=== PATIENT | female | born 1930 | race Caucasian/White ===

== ENCOUNTER 2017-02-21 08:04 | Inpatient (IN) ==
[2017-02-21] MEDS ORDERED: PROTONIX IV ONE (09:37)
[2017-02-21] MEDS ORDERED: NS 500 ML IV ONE (09:37)
[2017-02-21] MEDS ORDERED: SODIUM CHLORIDE 0.9% INJ ONE ×2 (09:37→09:38)
[2017-02-21] MEDS ORDERED: PHENERGAN IV ONE (09:38)
[2017-02-21] MEDS ORDERED: REGLAN IV ONE (09:38)
[2017-02-21 10:16] LABS: ALBUMIN 2.4 g/dL (3.5-5.0); CALCIUM 8.8 mg/dL (8.8-10.2); POTASSIUM 2.7 mmol/L (3.5-5.1); TOTAL BILIRUBIN 0.69 mg/dL (0.20-1.00); TOTAL PROTEIN 6.9 g/dL (6.3-8.3)
[2017-02-21 10:23] LABS: EOS# 0.01 X1000 (0.0-0.7); HEMATOCRIT 33.2 % (37.0-47.0); HEMOGLOBIN 10.7 g/dL (12.0-16.0); LYMPH# 0.84 X1000 (1.2-3.4); LYMPH% 2.6 % (20.5-51.1); MANUAL DIFF NEEDED? YES; MCH 24.9 PG (27-31); MCHC 32.2 g/dL (33-37); MCV 77.4 FL (81-99); MONO# 0.93 X1000 (0.11-0.59); MONO% 2.9 % (1.7-9.3); MPV 9.2 FL (7.4-10.4); NEUT% 94.5 % (42.2-75.2); PLT 384 X1000 (130-400); RBC 4.29 XMIL (4.2-5.4)
[2017-02-21 10:55] LABS: BANDS 17 % (0-1); LYMPHS 3 % (21-51); MONO 1 % (1-9)
[2017-02-21] MEDS ORDERED: KLOR-CON PO ONE (11:01)
[2017-02-21 11:02] LABS: HYPOCHROM 1+
--- NOTE | 2017-02-21 11:27 | Diag Imaging Result Doc PS360 ---
CT ABD/PELVIS W/ IV CONT ONLY - 02/21/2017 INDICATION: abd. pain, n, v, d TECHNIQUE: A CT dose reduction protocol was used. COMPARISON: None FINDINGS: There is cardiomegaly, pulmonary vascular congestion, and trace pleural effusions. No substantial infiltrates in the lung bases. There is trace ascites. Tiny nonobstructing 3 mm stone in the left kidney upper pole. There are some small renal cysts. The liver is atrophic. Spleen size is somewhat enlarged. The pancreas is atrophic. Adrenals and gallbladder are grossly normal. There is nonspecific body wall edema. There is a small simple cystic collection in the left pelvic sidewall measuring about 3.8 cm. There are numerous diverticula of the sigmoid colon. No definite bowel inflammation. No obstruction or free air. There is a right prosthesis. No acute bony process. IMPRESSION: 1. Cardiomegaly, pulmonary vascular congestion, trace pleural effusions. 2. Atrophic liver. Splenomegaly. Suggestive of cirrhosis. 3. Anasarca and trace ascites. 4. Small indeterminate cystic fluid collection at the left pelvic sidewall. This could represent a lymphocele or small diverticular abscess. However this does not appear definitely inflamed. Electronically signed by Fabian Cruz 02/21/2017 11:24 AM
[2017-02-21] MEDS ORDERED: POTASSIUM CHLORIDE 20% LIQUID PO ONE (12:00)
[2017-02-21 14:15] LABS: URINE CULTURE NEEDED? NO; URINE SOURCE CATH
[2017-02-21 14:23] LABS: BILIRUBIN URINE NEGATIVE (NEGATIVE); BLOOD URINE MODERATE (NEGATIVE); COLOR YELLOW; GLUCOSE URINE TRACE mg/dL (NEGATIVE); LEUKOCYTES URINE NEGATIVE (NEGATIVE); NITRITE URINE NEGATIVE (NEGATIVE); PH URINE 6.5; PROTEIN URINE >600 mg/dL (NEGATIVE); TURBIDITY URINE HAZY (CLEAR); UROBILINOGEN URINE NORMAL (NORMAL)
[2017-02-21 14:25] LABS: URINE MICRO REVIEW NEEDED? YES
[2017-02-21 14:27] LABS: UR EPITHELIAL CELLS >10 /HPF (<10); URINE BACTERIA NEGATIVE /HPF; URINE RBC 20-40 /HPF (<10); URINE WBC <10 /HPF (<10)
[2017-02-21] MEDS ORDERED: NS 1,000 ML IV SCH ×2 (14:42→15:26)
[2017-02-21 14:43] LABS: URINE CASTS WAXY PRESENT
[2017-02-21] MEDS: FLAGYL 500 MG/NS 500 MG/100 ML IVPB IV SCH ×2 (15:16→21:26)
[2017-02-21] MEDS: LEVAQUIN 750 MG/D5W 750 MG/150 ML IVPB IV SCH (16:30)
--- NOTE | 2017-02-21 18:40 | HISTORY AND PHYSICAL ---
PRIMARY CARE PHYSICIAN: Dr. Zhou Mckeon. CHIEF COMPLAINT: Diarrhea. HISTORY OF PRESENT ILLNESS: Ms. Pineda is an 86-year-old female with a past medical history of hypertension, diverticulitis, hypothyroidism status post goiter and partial thyroidectomy and iron deficiency anemia, who presents to the emergency room with worsening diarrhea, nausea, and vomiting. She reports that on an outpatient basis she has seen Dr. Mckeon within the last 3 or 4 months because of an increase with her stool as far as frequency and concern over this. After that she did received 2 rounds of antibiotics per the family for what they believed to be a colitis or diverticulitis. She was treated with Levaquin and another antibiotic that they are not sure of the name of and finished those about 6 weeks ago. She does also take MiraLAX nightly, although her primary care has told her she could take this every other day if she has had loose stool, but she continues to be pretty persistent about taking that nightly. Last night she began having vomiting and has vomited about 4 times since onset. She denies any blood in her emesis or stool. Denies any fever or chills, although her family member states she did feel warm last night but did not check her temperature. Her last colonoscopy and EGD have been within the last 5 years. The only abnormality did show diverticulitis and diverticulosis. The patient was found on arrival to have a 31,000 white count, as well as an abnormal CT of her abdomen and pelvis that showed a possible diverticular abscess and continues with very loose stool in the emergency room. She will be admitted for further evaluation and treatment. PAST MEDICAL HISTORY: 1. 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 2. Hypertension. 3. Diverticulitis. 4. Hypothyroidism status post goiter removal. 5. Iron deficiency anemia. PAST SURGICAL HISTORY: 1. Cataract removal. 2. Complete hysterectomy. 3. Right hip replacement. 4. Skin cancer to her nose, removed. 5. Goiter removal, partial thyroidectomy. SOCIAL HISTORY: Patient is a former smoker but this is been over 60 years ago. However, she has continued to dip tobacco daily over the last 60 years. She denies any alcohol or drug use. She lives with her daughter. FAMILY HISTORY: Positive for coronary artery disease with her mother, dad, and brothers. Positive for esophageal cancer with her father. ALLERGIES: Aspirin and penicillin. MEDICATIONS: Pending reconciliation. LABORATORIES AND DIAGNOSTICS: CBC: White count 31.79, hemoglobin and hematocrit are 10.7 and 33.2, platelets 384,000. BMP: Sodium 138, potassium 2.7, chloride 97, CO2 29, BUN 13, creatinine 1.2, glucose 135, AST 59, ALT 21, alkaline phosphatase 111. Abdomen and pelvis CT shows cardiomegaly, vascular congestion, trace pleural effusions, atrophic liver and splenomegaly suggestive of cirrhosis, anasarca, and trace ascites, and small indeterminate cystic fluid collection at the left pelvic sidewall that they believed could represent a lymphocele or small diverticular abscess. Pending stool cultures and urinalysis. REVIEW OF SYSTEMS: Ten point review of systems negative other than previously stated in HPI. PHYSICAL EXAMINATION: VITAL SIGNS: Temperature 99 degrees, respirations 16, blood pressure 134/69, O2 saturation 98% on room air. HEENT: Normocephalic, atraumatic. Mucous membranes slightly moist. NECK: Supple. No JVD. CHEST: Bilateral breath sounds clear. Respirations unlabored. No accessory muscle use noted. CARDIOVASCULAR: Normal S1, S2. ABDOMEN: Abdomen is soft. Slightly distended. Positive bowel sounds. Diffuse moderate abdominal tenderness. EXTREMITIES: With 1+ edema noted. NEUROLOGIC: The patient is alert and oriented x4. No neurological deficits noted. No focal findings. ASSESSMENT AND PLAN: 1. Abnormal abdomen CT, possible diverticulitis versus diverticular abscess. Will start Levaquin and Flagyl. Due to the risk related to this and her elevated white count. We will also consult surgery for any other recommendations. 2. Diarrhea. We will obtain stool studies and may need to have GI evaluate the patient as well due to her elevated white count and risk for colitis especially with her recent antibiotic use. 3. Leukocytosis. We will continue to follow and treat with IV antibiotics. Feel this is likely secondary to her colitis or diverticulitis. 4. Iron deficiency anemia. We will check an anemia panel. She does have a history of iron deficiency. Need to be sure this is not caused from anything else given her other abnormalities on her complete blood count. 5. Hypokalemia. Has been supplemented in the ER. We will continue to follow. 6. Hypothyroidism. Will check a TSH especially given her diarrhea. Continue to follow and continue with her levothyroxine. Further orders pending physician evaluation. Dictated by RD Muñoz for Edwin Muniz MD cc: RD Muñoz MD
--- NOTE | 2017-02-21 21:24 | CONSULTATION ---
DATE OF CONSULTATION: 02/21/2017 REFERRING PHYSICIAN: Edwin Muniz MD PRIMARY CARE DOCTOR: Zhou Mckeon MD REASON FOR CONSULTATION: Diverticulitis and questionable diverticula abscess and diarrhea. HISTORY OF PRESENT ILLNESS: Ms. Pineda is an 86-year-old female who was admitted through the ER today for abdominal pain localized to the left lower quadrant, right lower quadrant starting about 3 days. According to the patient, the pain got worse over the last 24 hours and she also a has a prior history of diverticulitis. The patient has a chronic history of constipation and takes MiraLAX every day. Her last colonoscopy was 4 years ago [address] Dr. Vergara. Her last admission with diverticulitis was many years ago. According to the patient since the onset of the pain, she has been having diarrhea and she describes liquid stools brown in color with 1 episode of blood in the stools. She also complains of nausea which started last night and had thrown up once last night. She denies noticing blood in the vomitus. She had imaging and a CT scan done in the hospital on admission and it showed evidence of: 1. Cardiomegaly. 2. Pulmonary venous congestion. 3. Trace pleural effusions. 4. Atrophic liver. 5. Splenomegaly. 6. Suggestion of cirrhosis. 7. Anasarca and trace ascites. 8. Small indeterminate cystic fluid collection at the left pelvic sidewall measuring 3.8 cm. This could represent a lymphocele or a small diverticular abscess. 9. She has been started on IV Levaquin and Flagyl. She is currently receiving her 1st dose of Flagyl. She appears to be dehydrated and has not eaten much in the last 24 hours. PAST MEDICAL HISTORY: 1. Diverticulitis. 2. Hypothyroidism. 3. Hypertension. 4. Constipation. PAST SURGICAL HISTORY: 1. Hysterectomy. 2. Cataracts. 3. Thyroidectomy. 4. Colonoscopy 4 years ago. FAMILY HISTORY: Noncontributory. SOCIAL HISTORY: She lives with family. Denies tobacco, alcohol, or illicit drugs. ALLERGIES: Aspirin and penicillin. MEDICATIONS AT HOME: 1. Lexapro 20 mg p.o. daily. 2. Prilosec 20 mg daily. 3. Phenergan 20 mg p.o. q.6 hours. 4. Etodolac ER 400 mg p.o. daily. 5. Lasix 40 mg p.o. daily. 6. Nabumetone 5 mg p.o. daily. 7. Ferrous sulfate 325 mg p.o. t.i.d. 8. Levothyroxine 88 mcg p.o. daily. MEDICATIONS IN HOSPITAL: 1. Lovenox. 2. Flagyl IV 500 mg q.6 hours. 3. Levaquin 750 mg to IV every 24 hours. 4. Levothyroxine 88 mcg p.o. before meals. 5. IV normal saline 100 mL/hour x1 L and then go down to 50 mL. 6. Zofran 4 mg IV every 4 hours. 7. Protonix 40 mg IV q.12 hours. She is currently nothing per oral. REVIEW OF SYSTEMS: She denies any current fevers, rigors, or chills. At home she did feel some chills, but no documented fever. In the ER, she had low-grade temperature 99.6 degrees. She denies any current nausea, but at home she had nausea and 1 episode of vomiting. She complains of abdominal pain in the left lower quadrant and right lower quadrant and diarrhea. She denies any new neurological symptoms. She does have chronic arthritis. She denies noticing blood in the stools. PHYSICAL EXAMINATION: Vital signs: Temperature 99.6 degrees, pulse rate of 99 , respiratory rate 16, blood pressure 134/69, saturating 98% on room air. Body weight 150 pounds. BMI of 24.2 kg/m2. General: Moderately built, moderately nourished, lying in bed, in no acute distress. HEENT: Pale conjunctivae. No icterus. Pupils equal, react to light. Neck: Supple. Chest: Decreased breath sounds. Cardiac: Tachycardic. Abdomen: Discomfort in the right lower quadrant, left lower quadrant. Bowel sounds are present. No guarding or rebound. Extremities: No cyanosis, clubbing, and edema. Neurologic: She is alert, awake, and answers all questions. LABORATORY: Hemoglobin and hematocrit is 10.7, 33.2. White count 31.79, platelet count of 384,000, MCV of 77.4. Sodium 130, potassium 2.7, chloride 97, bicarb 29, anion gap of 12, BUN of 13, creatinine 1.2, glucose of 135, calcium 8.8, AST 59, ALT 21, alkaline phosphatase 111, total protein 6.9, albumin of 2.4, total bilirubin is 0.69. Lipase of 7. Urinalysis showing positive protein, moderate blood, 20-40 white cells. IMAGING: CT scan as described above in HPI. IMPRESSION: 1. Leukocytosis, left lower quadrant pain and questionable of left-sided diverticulitis with 3.8 cm collection ? abscess. 2. Microcytic anemia. 3. Elevated liver enzymes and imaging suspicious for splenomegaly and atrophic liver suggesting cirrhosis of unclear etiology. 4. Dehydration. 5. Previous history of constipation, but reported diarrhea since onset of abdominal pain. RECOMMENDATIONS: 1. We will keep her nothing per oral for now. We will keep her on IV fluids, IV proton pump inhibitor, IV antibiotics. We will hold off on nonsteroidal antiinflammatory drugs. We will obtain a surgical consult. Patient most likely will feel better with IV antibiotics. Hopefully her diverticular abscess will resolve with IV antibiotics. 2. Her liver cirrhosis workup we will initiate once we can control the acute symptoms. 3. We will also check ammonia level. We will avoid any hepatotoxic drugs as much as possible. Once her abdominal pain is relieved, we can start her on a clear liquid diet. 4. The above plan was discussed with the patient and the nurse and all questions answered. cc: MD Zhou Genao MD Allen J. Schmidt, MD R. Tyler Harney, MD MTDD
[2017-02-21] MEDS: SODIUM CHLORIDE 0.9% INJ SCH (21:26)
[2017-02-21] MEDS: ICAR-C PO SCH (21:26)
[2017-02-21] MEDS: PROTONIX IV SCH (21:26)
--- NOTE | 2017-02-21 23:22 | CONSULTATION ---
DATE OF CONSULTATION: 02/21/2017 HISTORY OF PRESENT ILLNESS: This 86-year-old female multiple medical problems whose health has kind of dwindled over last several months. She states she has been having abdominal pain for several weeks now, has gotten worse prompting her admission to the emergency department. She has been feeling quite poorly, not really eating or drinking. Came to the emergency department where CT scan was obtained. She had a colonoscopy [address] Vergara, had diverticulosis but apparently otherwise normal. She has had several episodes of diverticulitis in the past although does not appear that she required hospitalization for any of these. Denies any bleeding in her stools but does have some mucoid loose stools recently. PAST MEDICAL HISTORY: 1. Diverticulosis. 2. Hypertension. 3. Hypothyroidism. 4. Cirrhosis SURGICAL HISTORY: Hysterectomy, cataract and thyroidectomy, right hemiarthroplasty. FAMILY HISTORY: Negative for cancer. REVIEW OF SYSTEMS: Ten point negative than what is mentioned in her HPI. SOCIAL HISTORY: Got family here with her. No tobacco, alcohol or drugs. ALLERGIES: Penicillin and aspirin. Does have some depression as well and gastroesophageal reflux disease. PHYSICAL EXAMINATION: Vital Signs: Temperature is 98.3 degrees, pulse 90, blood pressure 141/59, O2 saturation 91% on room air. General: She is alert, no acute distress. HEENT: There is no scleral icterus. Musculoskeletal: She is quite cachectic appearing with atrophy throughout. Cardiovascular: Normal rate, regular rhythm. Pulmonary: No increased work of breathing. Abdomen: Soft. Mild lower abdominal tenderness is mostly subjective. I do not see any peritonitis. Integument: Warm, dry without jaundice but she is quite pale. LABS: White count 31, hematocrit 33, platelets 384,000. Creatinine is 1.2, glucose 135, bilirubin 0.69, AST, ALT 59, 21, alkaline phosphatase 111, lipase 7, albumin is 2.4. Urinalysis has some RBCs and blood but no leukocytes or nitrites. CT scan abdomen and pelvis p.o. and IV contrast obtained emergency department shows cardiomegaly with pulmonary vascular congestion and trace pleural effusion. She has got an atrophic liver, splenomegaly suggestive of cirrhosis, got anasarca and trace ascites and there is indeterminate fluid collection in the left pelvic sidewall with the impression of a lymphocele or a small diverticular abscess. This measures 3.8 cm but there is no real inflammation here. Her colon throughout seemed somewhat thickened with some fluid but again this could be intraabdominal ascites. I do not see any definitive inflammation in the pelvis but I do see some diverticulosis. There is no free air. ASSESSMENT/PLAN: 86-year-old female, who presents with abdominal pain, leukocytosis and concern is for either colitis or diverticulitis with possibility of a diverticular abscess, is quite small, I do not see a lot of stranding around it or air in her abdomen. She is being treated with bowel rest and broad-spectrum antibiotics at this point. Will continue monitor and hydrate, I suspect she is quite dehydrated as well and will follow along. No plans for surgical intervention this time. She has stool studies pending. There is some leukocytes in her stool but C. difficile toxin is negative. Will continue to monitor her. I do not think percutaneous drainage is necessary at this time and it would not be very amenable given this location but will keep this in the back of our minds. If she were to clinically deteriorate she may need repeat scan for evaluate for this. Talked Dr. Bae about this, he is on the same page, will continue follow along. cc: Deion Bradford MD [facility] [place] [facility]
[2017-02-22] MEDS ORDERED: NS 1,000 ML IV SCH (01:00)
[2017-02-22] MEDS: FLAGYL 500 MG/NS 500 MG/100 ML IVPB IV SCH ×4 (03:30→21:53)
[2017-02-22] MEDS: SYNTHROID PO SCH (06:37)
[2017-02-22 06:57] LABS: BASO% 0.1 % (0.0-0.8); HEMATOCRIT 27.1 % (37.0-47.0); HEMOGLOBIN 8.7 g/dL (12.0-16.0); IMM GRAN# 0.08 X1000 (0.0-0.04); IMM GRAN% 0.3 % (0.0-0.5); LYMPH% 3.6 % (20.5-51.1); MANUAL DIFF NEEDED? YES; MCH 24.3 PG (27-31); MCHC 32.1 g/dL (33-37); MCV 75.7 FL (81-99); MONO# 1.03 X1000 (0.11-0.59); MONO% 4.2 % (1.7-9.3); NEUT% 91.8 % (42.2-75.2); PLT 296 X1000 (130-400); RBC 3.58 XMIL (4.2-5.4)
[2017-02-22 07:19] LABS: ALBUMIN 1.6 g/dL (3.5-5.0); CALCIUM 8.3 mg/dL (8.8-10.2); POTASSIUM 2.9 mmol/L (3.5-5.1); TOTAL BILIRUBIN 0.32 mg/dL (0.20-1.00); TOTAL PROTEIN 5.4 g/dL (6.3-8.3)
[2017-02-22 07:54] LABS: LYMPHS 8 % (21-51)
[2017-02-22 08:17] LABS: MAGNESIUM 1.8 mg/dL (1.5-2.7)
[2017-02-22] MEDS ORDERED: LOVENOX SUBQ SCH (09:00)
[2017-02-22] MEDS: SODIUM CHLORIDE 0.9% INJ SCH (09:53)
[2017-02-22] MEDS: PROTONIX IV SCH ×2 (09:53→21:53)
[2017-02-22] MEDS: ICAR-C PO SCH ×2 (09:53→21:53)
[2017-02-22] MEDS: POTASSIUM CHLORIDE 20 MEQ/SWI 20 MEQ/100 ML IVPB IV SCH ×2 (09:53→13:22)
[2017-02-22] MEDS: CENTRUM SILVER PO SCH (09:53)
[2017-02-22] MEDS: NS 1,000 ML IV SCH ×2 (09:54→21:54)
[2017-02-22] MEDS: CULTURELLE PO SCH ×2 (09:58→21:53)
--- NOTE | 2017-02-22 11:29 | PROGRESS NOTE ---
DATE: 02/22/2017 PRIMARY CARE DOCTOR: Dr. Mckeon SUBJECTIVE: Patient currently resting in bed. She just had a small bowel movement which was brown in color. She had some blood in the diaper. She has been treated for diverticulitis. Her white count is going down to 24. Her hemoglobin and hematocrit also dropped which I believe could be a combination of hemodilution from hydration. She denies any nausea or vomiting. She denies any fevers, rigors, chills. She complains of abdominal pain in the left lower quadrant, right lower quadrant which is slightly better from yesterday. OBJECTIVE: Vital signs: Temperature 98.2 degrees, pulse rate of 90, respiratory rate of 19, blood pressure 150/59, saturating 94% on 2 L nasal cannula. General: Thinly built, lying in bed, in no distress. HEENT: Pale conjunctiva. No icterus. Neck: Supple. Abdomen: Discomfort in the periumbilical, right lower quadrant and left lower quadrant. Bowel sounds present. No guarding. Extremities: No cyanosis, clubbing. Neurologic: She is alert, awake, and answers questions. LABORATORY DATA: Hemoglobin and hematocrit is 8.7, white count 24.69, platelet count of 296,000, MCV of 75.7, neutrophils 91.8%. Sodium 140, potassium 2.9, chloride 104, bicarbonate 28. Anion gap of 8, BUN of 18, creatinine 1, glucose of 93, calcium is 8.3, phosphorus 3, total magnesium is 1.8. Total bilirubin is 0.32, AST 89, ALT 30, alkaline phosphatase is 103, total protein 5.4, albumin of 1.6 Her stool studies have shown positive white cells but clostridium difficile toxin antigen negative. Stool culture preliminary is negative. Ova and parasites negative. Stool for occult blood is also negative. Her blood culture x2 is currently pending. IMPRESSION AND PLAN: 1. Diverticulitis and questionable left-sided diverticular abscess, neutrophilic leukocytosis currently being treated with IV Levaquin and Flagyl. White count slightly better. We will start her on ice chips and maybe clear liquid diet. 2. CT scan showing evidence of splenomegaly, atrophic liver and suspicious liver cirrhosis of unclear etiology. She has some mild liver enzymes. She also has hypoalbuminemia. We will check for chronic liver disease workup. We will keep an eye on her liver enzymes. 3. Microcytic anemia. We will start her on Iron C b.i.d. and multivitamin once daily. 4. Follow up on the blood culture report. If she continues to drop her hematocrit, she may need blood transfusion. 5. Gastrointestinal prophylaxis with PPIs. 6. Further recommendation pending hospital course. cc: MD Zhou Genao MD Alexis R. Penot, MD Allen J. Schmidt, MD R. Tyler Harney, MD MTDD
[2017-02-22 12:42] LABS: IRON SATURATION 10 %; TIBC 117 ug/dL; TOTAL IRON 12 ug/dL (49-151); UNBOUND IRON 105 ug/dL (112-346)
[2017-02-22 14:05] LABS: HEMATOCRIT 27.7 % (37.0-47.0); HEMOGLOBIN 9.3 g/dL (12.0-16.0)
--- NOTE | 2017-02-22 15:23 | PROGRESS NOTE ---
DATE: 02/22/2017 The patient is resting comfortably in bed. She is tolerating a clear liquid diet. OBJECTIVE: Vital Signs: Temperature 98.2 degrees, blood pressure 150/59 heart rate 98, respirations 19. O2 saturations 94% on 2 L nasal cannula. General: This is an elderly female, lying in bed, in no acute distress. Head: Normocephalic, atraumatic. Heart: S1, S2. Normal. Regular rate and rhythm. Lungs: Clear to auscultation bilaterally. Abdomen: Positive bowel sounds. Soft, nontender, nondistended. Extremities: No calf tenderness. Peripheral pulses palpable. Neurologic: The patient is alert oriented x3. LABORATORIES: The white blood cell count is 24, hemoglobin 8.7, hematocrit 27, platelets 296,000. Sodium 140, potassium 2.9 chloride 104, CO2 28, BUN 18 creatinine 1.1. Glucose 93. Iron 12. ASSESSMENT AND PLAN: 1. Diverticular abscess. Continue on the current IV antibiotic regimen. The patient's leukocytosis is slowly improving. Gastroenterology and surgery are following. 2. Leukocytosis, improved. Continue on IV antibiotic therapy. 3. Hypokalemia. Will replace the patient's potassium. 4. Iron-deficiency anemia. The patient's hemoglobin and hematocrit did drop today. We will repeat another hemoglobin and hematocrit this afternoon. Continue on iron supplementation. 5. Hypertension. Controlled. 6. Hypothyroidism. Continue on Synthroid. 7. Deep vein thrombosis prophylaxis. Continue with SCDs. cc: Brissa Dinero MD
[2017-02-22] MEDS: LEVAQUIN 750 MG/D5W 750 MG/150 ML IVPB IV SCH (15:36)
--- NOTE | 2017-02-22 16:20 | PROGRESS NOTE ---
DATE: 02/22/2017 SUBJECTIVE: She feels better. Pain is improved, as is her diarrhea but she is still going. No nausea or vomiting. OBJECTIVE: Vital signs: No fevers. Pulse 91, blood pressure 142/61, oxygen saturation 94 on 2 L. Abdomen: She has lower abdominal tenderness but no peritonitis. Nondistended and soft. LABS: White count is down to 24, hematocrit 27. Creatinine is 1.1. Glucose 93. ASSESSMENT AND PLAN: This is an 86-year-old female with what appears to be diverticulitis, diverticular abscess, although it is possible this is just colitis. Afebrile. Exam is improving as is her leukocytosis. Will continue antibiotics for now. I think ultimately she may need a colonoscopy but will hold off at this point. Her stool studies appear normal. Dr. Bae is following. cc: Deion Bradford MD
[2017-02-23] MEDS: FLAGYL 500 MG/NS 500 MG/100 ML IVPB IV SCH ×3 (03:53→15:12)
[2017-02-23] MEDS: SYNTHROID PO SCH ×2 (05:58→06:11)
[2017-02-23 06:39] LABS: BASO% 0.1 % (0.0-0.8); EOS# 0.02 X1000 (0.0-0.7); EOS% 0.1 % (0.0-10.0); HEMATOCRIT 27.3 % (37.0-47.0); HEMOGLOBIN 8.9 g/dL (12.0-16.0); IMM GRAN# 0.17 X1000 (0.0-0.04); IMM GRAN% 0.6 % (0.0-0.5); LYMPH# 0.81 X1000 (1.2-3.4); MANUAL DIFF NEEDED? YES; MCH 24.6 PG (27-31); MCHC 32.6 g/dL (33-37); MCV 75.4 FL (81-99); MONO# 0.82 X1000 (0.11-0.59); MONO% 3.1 % (1.7-9.3); MPV 8.7 FL (7.4-10.4); NEUT% 93.1 % (42.2-75.2); PLT 324 X1000 (130-400); RBC 3.62 XMIL (4.2-5.4)
[2017-02-23 06:51] LABS: ALBUMIN 1.7 g/dL (3.5-5.0); CALCIUM 8.3 mg/dL (8.8-10.2); POTASSIUM 3.7 mmol/L (3.5-5.1); TOTAL BILIRUBIN 0.32 mg/dL (0.20-1.00); TOTAL PROTEIN 5.5 g/dL (6.3-8.3)
[2017-02-23 07:23] LABS: BANDS 2 % (0-1); HYPOCHROM 2+; LYMPHS 4 % (21-51)
[2017-02-23] MEDS: PROTONIX IV SCH ×2 (09:56→20:44)
[2017-02-23] MEDS: ZOFRAN IV PRN (09:56)
[2017-02-23] MEDS: CULTURELLE PO SCH ×2 (10:10→20:44)
[2017-02-23] MEDS: CENTRUM SILVER PO SCH (10:10)
[2017-02-23] MEDS: ICAR-C PO SCH ×2 (10:10→20:44)
[2017-02-23] MEDS: NS 1,000 ML IV SCH ×2 (10:26→17:24)
[2017-02-23 12:50] LABS: HEPATITIS PROFILE ACUTE SEE COMMENTS
--- NOTE | 2017-02-23 15:35 | PROGRESS NOTE ---
DATE: 02/23/2017 SUBJECTIVE: The patient is complaining of nausea this morning and an upset stomach. She states that this started after she ate her bra. OBJECTIVE: Vital Signs: Temperature 97.6 degrees, blood pressure 145/53, heart rate 83, respirations 18, and O2 saturation is 94% on 2L nasal cannula. General: This is an elderly female, lying in bed in no acute distress. Head: Normocephalic, atraumatic. Heart: S1 and S2. Normal. Regular rate and rhythm. Lungs: Clear to auscultation bilaterally. No wheezes. No rales. No rhonchi. Abdomen: Positive bowel sounds. Soft, nontender, nondistended. Extremities: No edema. No cyanosis. No calf tenderness. Neurologic: The patient is alert and oriented x3. LABORATORIES: White blood cell count 26.8, hemoglobin 8.9, hematocrit 27, platelets 324,000. Sodium 140, potassium 3.7, chloride 103, CO2 of 25, BUN 26, creatinine 1.1, glucose 104, calcium 8.3, AST 53, ALT 31, alkaline phosphatase 83, and albumin is 1.7. ASSESSMENT AND PLAN: 1. Diverticular abscess. The patient's white blood cell count is mildly elevated today. We will continue on the current IV antibiotic regimen. Will ask Dr. Warner to see the patient and provide additional recommendations. 2. Leukocytosis. The white blood cell count is a little more elevated today. Continue on IV antibiotic therapy. 3. Hypertension. Controlled. 4. Hypothyroidism. Continue on Synthroid. 5. Iron-deficiency anemia. Continue on iron supplementation. 6. Deep vein thrombosis prophylaxis. Continue with SCDs. cc: Brissa Dinero MD
[2017-02-23] MEDS: LEVAQUIN 750 MG/D5W 750 MG/150 ML IVPB IV SCH (17:25)
--- NOTE | 2017-02-23 17:38 | PROGRESS NOTE ---
DATE: 02/23/2017 SUBJECTIVE: She wants go home. States she still has some pain, but that is improving. OBJECTIVE: Vital Signs: No fevers. No tachycardia. Blood pressure 135/61, oxygen saturation 94% on 2 L. General: She is alert, in no acute distress. Abdomen: Tender in the lower abdomen but no peritonitis, nondistended. Integument: Otherwise warm, dry. LABS: White count of 26, hematocrit 27. Creatinine is 1.1. Glucose is 104. ASSESSMENT AND PLAN: An 86-year-old female, with what appears to be either colitis or diverticulitis with associated abscess versus cystic left adnexal structures. We will continue to follow along. She is slowly improving. Her white count is back up a bit. She is on Levaquin and Flagyl. Will continue these for now. If she plateaus or worsens, she will need another CT scan to evaluate for enlarging abscess, otherwise continue to plan for nonoperative management at this point. cc: Deion Bradford MD
--- NOTE | 2017-02-23 18:26 | CONSULTATION ---
DATE OF CONSULTATION: 02/23/2017 CONCLUSION: The patient has an acute abdominal event. Based on the CAT scan this may be a diverticular abscess. She also has a penicillin allergy. RECOMMENDATIONS: I have discontinued Levaquin and Flagyl and instead have started the patient on a combination of clindamycin and aztreonam. I have requested that the nurse observe the patient during the first dose of aztreonam as well. DISCUSSION: Approximately for 8 weeks now, the patient has been having vomiting and abdominal pain. According to the daughter, the patient over a few years has had episodes of abdominal pain which they have attributed to diverticulitis. The patient does have vomiting and abdominal pain, but she has not had diarrhea. Thus far, her studies show Clostridium difficile antigen and toxin were negative. Blood cultures are negative. Stool for O and P is negative. Stool culture is negative. The patient's creatinine is 1.1. The GFR is 47. The patient continues to have a high white count. Today the CBC shows a white count of 26,840, hemoglobin 8.9, and platelet count 324,000. CT scan of the abdomen and pelvis shows anasarca and possible diverticular abscess. PAST MEDICAL HISTORY/REVIEW OF SYSTEMS: Eyes and ears: She denies difficulty hearing or seeing. Neck: No stiffness. Respiratory: No cough or shortness of breath. Cardiac: No chest pain or palpitations. Abdomen: No nausea vomiting or diarrhea until the present illness started approximately 8 weeks ago. Neurologic: No seizures or motor or sensory loss. Endocrine: Patient has hypothyroidism. She does not have diabetes mellitus. Bones, joints, muscles: She does not complain of joint swelling or muscle aching. The remainder of the patient's review of systems was completed and was negative. PREVIOUS HOSPITALIZATIONS AND OPERATIONS: She has had 4 labor and deliveries and a hysterectomy. She has had cataract surgery and surgery for a hip fracture. HOSPITAL PHARMACY DIRECTOR HISTORY: She is a 4 para 4 AB 0. She has had a hysterectomy. MEDICAL DISEASES: Positive for diverticulitis according to the patient and her daughter and hypothyroidism. The patient had a goiter. INFECTIOUS DISEASE HISTORY: Positive for UTI. FAMILY HISTORY: Positive for diabetes mellitus, hypertension, myocardial infarction, stroke, and cancer. SOCIAL HISTORY[place] . She lives with her daughter. She has cats and dogs for pets. MEDICINES: The patient's medicines taken at home include the following: Phenergan, Omeprazole, nabumetone, Synthroid, Lasix, ferrous sulfate, Lodine and Lexapro. ALLERGIES: She is allergic to penicillin and aspirin manifested by a rash. PHYSICAL EXAMINATION: Vital Signs: Temperature is 97.9 degrees, pulse 63, respirations 17, blood pressure 135/61. Her weight is 150 pounds. She is 5 feet 6 inches tall. General: This is an ill-appearing elderly female. She is in no acute distress. Head, eyes, ears, nose, and throat: She can hear my spoken words and see near objects. She has dentures. There is no white coating to the tongue. Neck: No meningismus. Thorax: Patient has dorsal kyphosis. Lungs: Clear to auscultation. Cardiovascular: Heart rate was irregular and she had a systolic murmur. Abdomen: Distended and tender. I heard bowel sounds. Neurologic: Patient is alert. She can move her extremities. There is no tremor. Her sensation is intact to touch. Her memory, as regarding her past medical history seemed to be diminished. Thank you for the consult. cc: Ivan Warner MD
[2017-02-23] MEDS: AZACTAM 1 GM in NS 50 ML IV SCH (18:39)
[2017-02-23] MEDS: SODIUM CHLORIDE 0.9% INJ SCH (20:44)
[2017-02-23] MEDS: CLINDAMYCIN 600 MG/NS 600 MG/50 ML IVPB IV SCH (20:44)
[2017-02-24] MEDS: NS 1,000 ML IV SCH ×2 (02:08→17:39)
[2017-02-24] MEDS: AZACTAM 1 GM in NS 50 ML IV SCH ×3 (02:09→17:39)
[2017-02-24] MEDS ORDERED: NORCO-7.5 PO ONE (02:35)
[2017-02-24] MEDS: ZOFRAN IV PRN (02:52)
[2017-02-24] MEDS: CLINDAMYCIN 600 MG/NS 600 MG/50 ML IVPB IV SCH ×3 (03:52→21:07)
[2017-02-24] MEDS: SYNTHROID PO SCH (06:09)
[2017-02-24 06:49] LABS: ALBUMIN 1.7 g/dL (3.5-5.0); CALCIUM 8.1 mg/dL (8.8-10.2); POTASSIUM 3.6 mmol/L (3.5-5.1); TOTAL BILIRUBIN 0.24 mg/dL (0.20-1.00); TOTAL PROTEIN 5.1 g/dL (6.3-8.3)
[2017-02-24 06:55] LABS: BASO% 0.2 % (0.0-0.8); EOS# 0.19 X1000 (0.0-0.7); EOS% 0.8 % (0.0-10.0); HEMATOCRIT 26.1 % (37.0-47.0); HEMOGLOBIN 8.6 g/dL (12.0-16.0); IMM GRAN# 0.09 X1000 (0.0-0.04); IMM GRAN% 0.4 % (0.0-0.5); LYMPH# 0.92 X1000 (1.2-3.4); LYMPH% 3.7 % (20.5-51.1); MANUAL DIFF NEEDED? YES; MCH 24.6 PG (27-31); MCV 74.8 FL (81-99); MONO# 1.05 X1000 (0.11-0.59); MONO% 4.2 % (1.7-9.3); MPV 8.9 FL (7.4-10.4); NEUT% 90.7 % (42.2-75.2); PLT 309 X1000 (130-400); RBC 3.49 XMIL (4.2-5.4)
[2017-02-24 08:15] LABS: BANDS 8 % (0-1); HYPOCHROM 1+; LYMPHS 4 % (21-51)
[2017-02-24] MEDS ORDERED: NORCO-5 PO PRN (10:40)
[2017-02-24] MEDS: CENTRUM SILVER PO SCH (10:45)
[2017-02-24] MEDS: ICAR-C PO SCH ×2 (10:45→21:07)
[2017-02-24] MEDS: PROTONIX IV SCH ×2 (10:46→21:07)
[2017-02-24] MEDS: CULTURELLE PO SCH ×2 (10:46→21:07)
--- NOTE | 2017-02-24 13:21 | PROGRESS NOTE ---
DATE: 02/24/2017 SUBJECTIVE: The patient is resting comfortably in bed. She denies having any nausea today. She does complain of some mild abdominal discomfort. OBJECTIVE: Vital Signs: Temperature 98 degrees, blood pressure 118/75, heart rate 82, respirations 16, O2 saturations 94% on 2 L nasal cannula. General: This is an elderly male, lying in bed, in no acute distress. Head: Normocephalic, atraumatic. Heart: S1, S2. Normal. Regular rate and rhythm. Lungs: Clear to auscultation bilaterally. No wheezes, no rales, no rhonchi. Abdomen: Positive bowel sounds. Soft, nontender, nondistended. Extremities: No edema. No cyanosis. No calf tenderness. Neurologic: The patient is alert oriented x3. LABORATORY DATA: White blood cell count 24, hemoglobin 8.6, hematocrit 26, platelets 309,000. Sodium 140, potassium 3.6, chloride 104, CO2 of 25. BUN 26, creatinine 1, glucose 129. ASSESSMENT AND PLAN: 1. Diverticular abscess. Continue on IV antibiotic therapy as directed by Dr. Warner. 2. Leukocytosis. Slightly improved today. Continue on IV antibiotic therapy. 3. Iron deficiency anemia. Continue on iron supplementation. 4. Hypothyroidism. Continue on Synthroid. 5. Hypertension. Controlled. 6. Deep vein thrombosis prophylaxis. Continue with sequential compression devices. cc: Brissa Dinero MD
[2017-02-24] MEDS: CLINIMIX E 4.25%-5% SOLUTION 1,000 ML IV SCH (16:13)
--- NOTE | 2017-02-24 16:19 | PROGRESS NOTE ---
DATE: 02/24/2017 SUBJECTIVE: Patient currently resting in bed. Her son-in-law was at the bedside. Her abdominal pain is improving. Her diarrhea is resolved. She has not had any bowel movement today. She denies any fever and chills. Her white count is still elevated 24,000. She was seen by Dr. Warner and he adjusted her antibiotics with clindamycin and aztreonam. Her Levaquin and Flagyl have been stopped. She denies any nausea or vomiting. She has been tolerating liquids well. Vitals: Temperature 98.4 degrees, pulse rate of 93, respiratory rate of 16, blood pressure 120/48, saturating 92% on room air. General: Moderately nourished, lying in bed, in no acute. HEENT : Pale conjunctivae. No icterus. Neck: Is supple. Abdomen: Soft, mild discomfort left lower quadrant. Bowel sounds are present. Extremities: No cyanosis, clubbing. Neurologic: She is sleeping and was able to wake up on command and was able to answer questions. LABS: Hemoglobin and hematocrit is 8.6, 26.1, white count of 24.9, and platelet count of 309,000. MCV of 74.8, percent neutrophils 90.7. Sodium 140, potassium 3.6, chloride 104 , bicarb 25, anion gap 11, BUN of 6, creatinine 1, glucose of 126, calcium 8.1. AST 41, ALT 26, alkaline phosphatase 81, total protein 5.1, albumin of 1.7. TORI is negative. Hepatitis panel is positive for hepatitis A viral antibody. I think this is a false positive. IMPRESSION AND PLAN: 1. Left-sided diverticulosis with diverticular abscess. Currently on antibiotics which were switched by Dr. Warner. 2. Diarrhea which resolved. 3. Leukocytosis: mild improvement. Will continue antibiotics. 4. Iron deficiency anemia. Continue iron supplementation and multivitamin once daily. 5. Elevated liver enzymes. Workup has so far been unrevealing. CT scan showed findings of atrophic liver, splenomegaly and suggestion of cirrhosis. We will continue follow. 6. Will keep the patient on clear liquid diet. We will start her on Ensure Clear 3 times daily. I will start the patient on Clinimix if needed. 7. The above discussed with the patient and family. cc: Jaems Bae, MD BrissaMD Ivan Puente MD R. Tyler Harney, MD [facility]ITALLynn
--- NOTE | 2017-02-24 18:41 | PROGRESS NOTE ---
DATE: 02/24/2017 SUBJECTIVE: Pain is a little bit better. Bowels are not moving quite as frequently. OBJECTIVE: Vital Signs: No fevers. No tachycardia. Blood pressure was 118/75, oxygen saturation 94% on 2 L. General: She is alert. Abdomen: Her lower abdomen remains tender with some voluntary guarding, but no involuntary guarding, rebound or evidence of peritonitis. LABS: White count 24, hematocrit 26. Creatinine is 1.0. Glucose 129. ASSESSMENT AND PLAN: This is an 86-year-old female, who is chronically ill with multiple medical issues. She appears to have a diverticular abscess. White count is now downtrending, although it has been relatively stable the last couple days. Dr. Warner is involved and he has changed her antibiotics. Will follow this for now. If her white count fails to improve, she will need another CT scan to evaluate for drainable abscess. Otherwise, will continue medical management as she is hemodynamically stable with no signs of diffuse peritonitis. cc: Deion Bradford MD
--- NOTE | 2017-02-24 20:13 | PROGRESS NOTE ---
DATE: 02/24/2017 PRESENT ILLNESS: The patient has a diverticular abscess as seen on CT scan. Also based on the hepatitis serology, she has an acute hepatitis A infection as well. The patient has a penicillin allergy also. MEDICATIONS: The patient is getting a combination of aztreonam and clindamycin. PHYSICAL EXAMINATION: Vital Signs: Temperature is 98.4 degrees, pulse 93, respirations 16, blood pressure 123/48. General: This is an ill-appearing, elderly female. She is in no acute distress. Lungs: Clear to auscultation. Cardiovascular: Regular heart rate. Abdomen: Soft, but tender. It is slightly protuberant also. Neurologic: She is alert. She can move her extremities. LABORATORY AND X-RAY: The patient's creatinine is 1, the GFR is 53. The hepatitis panel showed positive IgM antibody to hepatitis A. The AST was only 41. CBC: The white count is down a little bit to 24,980, hemoglobin is 8.6 and platelet count is 309,000. ASSESSMENT AND PLAN: 1. The patient has a diverticular abscess. I plan to continue aztreonam and vancomycin. This is day 1 of treatment. As for her hepatitis A, there is no treatment available and usually it has a pain good prognosis and based on the liver enzyme studies, it is a very a mild case of hepatitis a because AST is only 41. 2. Comorbidities: She is elderly. She does have a history of diverticulitis and she also now has hepatitis. cc: Ivan Warner MD
[2017-02-25] MEDS: AZACTAM 1 GM in NS 50 ML IV SCH ×3 (01:27→18:29)
[2017-02-25] MEDS: CLINIMIX E 4.25%-5% SOLUTION 1,000 ML IV SCH ×4 (01:28→23:30)
[2017-02-25] MEDS: ULTRAM PO PRN (01:31)
[2017-02-25] MEDS: CLINDAMYCIN 600 MG/NS 600 MG/50 ML IVPB IV SCH ×3 (05:13→21:43)
[2017-02-25] MEDS: SYNTHROID PO SCH (06:18)
[2017-02-25 06:58] LABS: BASO% 0.2 % (0.0-0.8); EOS# 0.45 X1000 (0.0-0.7); EOS% 1.7 % (0.0-10.0); HEMATOCRIT 28.1 % (37.0-47.0); HEMOGLOBIN 9.2 g/dL (12.0-16.0); IMM GRAN% 0.8 % (0.0-0.5); LYMPH# 1.18 X1000 (1.2-3.4); LYMPH% 4.5 % (20.5-51.1); MANUAL DIFF NEEDED? YES; MCH 24.5 PG (27-31); MCHC 32.7 g/dL (33-37); MCV 74.9 FL (81-99); MONO# 1.43 X1000 (0.11-0.59); MONO% 5.4 % (1.7-9.3); NEUT% 87.4 % (42.2-75.2); PLT 357 X1000 (130-400); RBC 3.75 XMIL (4.2-5.4)
[2017-02-25 07:04] LABS: ALBUMIN 1.7 g/dL (3.5-5.0); CALCIUM 8.5 mg/dL (8.8-10.2); POTASSIUM 3.5 mmol/L (3.5-5.1); TOTAL BILIRUBIN 0.2 mg/dL (0.20-1.00); TOTAL PROTEIN 5.4 g/dL (6.3-8.3)
[2017-02-25 08:34] LABS: BANDS 1 % (0-1); HYPOCHROM 1+; LYMPHS 7 % (21-51)
[2017-02-25 08:35] LABS: LARGE PLATELETS 1+
--- NOTE | 2017-02-25 10:10 | Diag Imaging Result Doc PS360 ---
EXAM: ABDOMEN/PELVIS W/PO AND IV CON HISTORY: reevaluate abscess TECHNIQUE: CT abdomen and pelvis with oral and intravenous contrast. Dose reduction protocol. COMPARISON: 02/21/2017 FINDINGS: There are at least small bilateral pleural effusions. These are larger than on the prior exam. Each measures at least between two and 3 cm posteriorly and inferiorly in the midline. There is bibasilar atelectasis and infiltrates in the lower lobes. There is a small amount of ascites.. This has increased compared to the prior exam. Prominent body wall edema. The liver is somewhat nodular. The spleen is not enlarged. No calcified gallstones. Normal pancreas and adrenal glands. There are small scattered renal cysts. No bowel obstruction. The urinary bladder is moderately distended and appears normal. Metallic artifact in the pelvis from right hip prosthesis. No definite change in size in the left adnexal cystic area measuring 3.8 cm. There are also several fluid-filled areas in the right adnexa. None of these contain air. The largest on the right also measures 3.8 cm. Fluid collections in the right adnexa are more prominent than the prior study. The uterus has been removed. Marked thickening to the wall of the sigmoid colon and rectum. IMPRESSION: 1.Interval worsening in the pleural effusions with basilar atelectasis and infiltrates. 2.Interval worsening in the multiple fluid collections within the pelvis which may represent multiple abscesses. 3.Marked thickening to the wall of the sigmoid colon and rectum. Further workup recommended. 4.Worsening body wall edema and ascites. Electronically signed by Tj Ivy 02/25/2017 10:07 AM
[2017-02-25] MEDS: PROTONIX IV SCH ×2 (10:41→21:43)
[2017-02-25] MEDS: CENTRUM SILVER PO SCH (10:41)
[2017-02-25] MEDS: ICAR-C PO SCH ×2 (10:41→21:43)
[2017-02-25] MEDS: CULTURELLE PO SCH ×2 (10:42→21:43)
[2017-02-25 12:12] LABS: MAGNESIUM 1.8 mg/dL (1.5-2.7)
--- NOTE | 2017-02-25 15:44 | PROGRESS NOTE ---
DATE: 02/25/2017 SUBJECTIVE: Just getting weaker, but says her pain is slightly improved. She is not really having frequent bowel movements. OBJECTIVE: Vital signs: No fevers overnight. Pulse is 95. Blood pressure 150/78. Oxygen saturation 95% on 2 L nasal cannula. General: She is alert. He is quite debilitated, lying in bed. Cardiovascular: Normal rate, regular rhythm. Abdomen: Soft, mildly distended, but only mildly tender in the lower abdomen. I do not see peritonitis. Integument: Otherwise warm, dry. There is lower extremity edema noted. DATA: White count is up to 26, hematocrit 28, creatinine is 1. Glucose 144. Her albumin is low at 1.7. ASSESSMENT AND PLAN: This is an 86-year-old female with apparent diverticulitis and possible pelvic abscesses. She has got ascites with what looks like cirrhosis, bilateral pleural effusions and diffuse anasarca. I have had a long discussion with her daughter and son. From a surgical standpoint, if she were to progress to surgery, she would need an exploratory laparotomy in an open fashion with a colectomy and an end-colostomy. I have discussed this with the patient family that short of this there is not much else surgically, other than potential percutaneous drainage. On her CT scan today, I do not see a large enough collection that would be amenable to percutaneous drainage, and although her white count remained elevated, her exam seems to be gradually improving. Dr. Warner did change her antibiotics yesterday. The family agrees that we will pursue maximum therapy short of an operation. We will continue to follow her along, and if she were to worsen, we would need to re-evaluate for an abscess amenable to drainage. cc: Deion Bradford MD
--- NOTE | 2017-02-25 16:34 | PROGRESS NOTE ---
DATE: 02/25/2017 SUBJECTIVE: The patient is resting comfortably in bed. She has no complaints at this time. OBJECTIVE: Vital Signs: Temperature is 98.4 degrees, blood pressure 148/63, heart rate 99, respirations 17, O2 saturations 97% on 2 L nasal cannula. General: This is an elderly female, lying in bed, in no acute distress. Head: Normocephalic, atraumatic. Heart: S1, S2 normal. Tachycardic. Lungs: Diminished breath sounds at the bases. No crackles. No rales. Abdomen: Positive bowel sounds. Soft. Extremities: No edema. No cyanosis. No calf tenderness. Neuro: The patient is alert and oriented. LABORATORY DATA: White blood cell count 26, hemoglobin 9.2, hematocrit 28, platelets 357,000. Sodium 135, potassium 3.5, chloride 102, CO2 of 26. BUN 26, creatinine 1, glucose 144. ASSESSMENT AND PLAN: 1. Pelvic abscesses. Gastroenterology, general surgery and Infectious Disease are following. We will continue on the current IV antibiotic regimen as ordered. 2. Bilateral pleural effusions. We will continue to monitor the patient's intake and output closely. We will order a chest x-ray for tomorrow morning. Continue on supplemental oxygen. 3. Chronic kidney disease, stable. 4. Anemia. Continue with iron supplementation. The patient's hemoglobin and hematocrit is stable. 5. Leukocytosis. This is worse today. Continue with IV antibiotic management. 6. Severe protein calorie malnutrition. Flake Drier has consulted the dietitian for assistance with improving the patient's nutritional status. 7. Deep vein thrombosis prophylaxis. We will start the patient on Lovenox. cc: Brissa Dinero MD
[2017-02-25] MEDS: LOVENOX SUBQ SCH (18:29)
[2017-02-25] MEDS ORDERED: LASIX IV ONE (19:15)
--- NOTE | 2017-02-25 19:53 | PROGRESS NOTE ---
DATE: 02/25/2017 PRESENT ILLNESS: The patient has multiple pelvic abscesses and increasing pleural effusions and basilar infiltrates in her lungs. MEDICATIONS: The patient is on a combination of clindamycin and aztreonam. PHYSICAL EXAMINATION: Vital Signs: Temperature is 98.4 degrees, pulse 99, respirations 16, blood pressure 142/50. General: This is an ill-appearing and lethargic elderly female. She is in no acute distress. Lungs: Have diminished breath sounds in the bases. Cardiovascular: Heart rate was regular. Abdomen: Was somewhat distended and tender. No bowel sounds were heard. LABORATORY AND X-RAYS: CBC today shows a white count of 26,410, hemoglobin 9.2, and platelet count 357,000. Creatinine is 1, GFR is 53. CT scan shows worse pleural effusions and bibasilar infiltrates. It also shows increasing multiple fluid collections in the pelvis and also shows marked thickening of the wall of the sigmoid colon. There also is worse ascites. ASSESSMENT AND PLAN: 1. Patient condition is getting worse. There is increase in abscesses. There is an increase in pneumonia and also increase of the sigmoid colon wall. The plan is to continue with antibiotics. If she does not get better soon, there may be additional attempts to try to drain some of the abscesses and fluid collection. 2. Comorbidities include her age. Also the fact that she is very elderly. Also, she has a history of diverticulitis. She also now has hepatitis A. cc: Ivan Warner MD
[2017-02-26] MEDS: AZACTAM 2 GM in NS 100 ML IV SCH ×3 (03:44→17:54)
--- NOTE | 2017-02-26 03:47 | PROGRESS NOTE ---
DATE: 02/25/2017 SUBJECTIVE: Patient is currently resting in bed. Her son is present at bedside. She continues to complain of left lower quadrant pain. Her diarrhea has resolved. She had a repeat CT scan done today which showed interval worsening of the pleural effusions with bibasilar atelectasis and infiltrates. Interval worsening and multiple fluid collections in the pelvis suggesting ? multiple abscesses. Marked thickening to the wall of the sigmoid colon and rectum. Further workup is recommended. Worsening body wall edema, anasarca, and ascites; the largest collection noted to be 3.8 cm in the right. The liver is somewhat nodular. The spleen is not enlarged. No calcified gallstones noted. Normal pancreas and adrenal glands. Small scattered renal cysts. No bowel obstruction noted. The patient was seen by Dr. Warner yesterday. He changed the antibiotic. White count continues to be elevated at 27,000. She denies any fever, rigors, or chills. She denies any nausea or vomiting. OBJECTIVE: Vital signs: Temperature 96.8, pulse rate 95, respiratory rate 17, blood pressure 150/70, saturating 94% on nasal cannula. General: Thinly built, lying in bed , in no acute distress. HEENT: Pale conjunctivae. No icterus. Neck: Supple. Abdomen: Discomfort in the periumbilical region and left lower quadrant and tenderness on palpation. Bowel sounds are hypoactive. Mild distention noted. Extremities: No cyanosis, clubbing. Neurologic: She is awake and alert. Answers some questions. Skin: Diffuse body wall edema noted. LABS: Her hemoglobin and hematocrit is 9.2 and 28.1, white count of 26.4, platelet count of 357,000, MCV of 74.9. Sodium 130, potassium 3.5, chloride 102, bicarb 26, anion gap 7, BUN of 26, creatinine 1, glucose of 144, calcium is 8.5, total bilirubin is 0.2, AST 30, ALT 24, alkaline phosphatase 78, total protein 5.4, albumin of 1.7. TORI is negative. Acute hepatitis panel is showing positive IgM and hepatitis A which is likely a false reading. IMPRESSION AND PLAN: 1. Diverticular abscess in the left lower quadrant. Now the repeat CAT scan shows worsening with multiple abscesses in that area, in the pelvic area. She will continue on aspirin on vancomycin. We will discuss the case with Dr. Carlos Bradford and she may need to have surgical drainage. 2. Malnutrition and hypoalbuminemia. Will put in a nutrition consultation for TPN. 3. Nodular liver but negative TORI and a false/positive hepatitis A IgM. Unclear etiology of patient's nodular liver. Could be HOYOS, nonalcoholic steatohepatitis. But if the patient were to go for general surgery, we will request a liver biopsy at the same time. 4. Leukocytosis. On antibiotics. 5. Gastrointestinal pathology with PPIs. 6. Thickening of the left colon with abscesses. Likely secondary to diverticulitis. 7. Anemia. Will start on Iron C b.i.d. and multivitamin once daily. 8. I discussed the above plan of care with the patient and family at bedside and all questions were answered. cc: MD Ivan Genao MD R. Tyler Harney, MD MTDD
[2017-02-26] MEDS: CLINDAMYCIN 600 MG/NS 600 MG/50 ML IVPB IV SCH ×3 (05:18→20:20)
[2017-02-26] MEDS: CLINIMIX E 4.25%-5% SOLUTION 1,000 ML IV SCH ×3 (05:45→17:57)
--- NOTE | 2017-02-26 06:07 | Diag Imaging Result Doc PS360 ---
EXAM: CHEST-PORTABLE HISTORY: pleural effusion TECHNIQUE: Portable chest COMPARISON: 09/26/2015 FINDINGS: Poor inspiratory effort. There are small bilateral pleural effusions. Heart is not enlarged. Mild increased interstitial markings. There is basilar atelectasis. IMPRESSION: Poor inspiratory effort with basilar atelectasis as well as small pleural effusions and pulmonary edema. Follow-up PA and lateral recommended. Electronically signed by Tj Ivy 02/26/2017 6:04 AM
[2017-02-26] MEDS: SYNTHROID PO SCH (06:40)
[2017-02-26 06:49] LABS: ALBUMIN 1.6 g/dL (3.5-5.0); CALCIUM 7.9 mg/dL (8.8-10.2); POTASSIUM 3.8 mmol/L (3.5-5.1); TOTAL BILIRUBIN 0.18 mg/dL (0.20-1.00); TOTAL PROTEIN 5.1 g/dL (6.3-8.3)
[2017-02-26 06:54] LABS: BASO% 0.3 % (0.0-0.8); HEMOGLOBIN 8.8 g/dL (12.0-16.0); IMM GRAN# 0.15 X1000 (0.0-0.04); IMM GRAN% 0.8 % (0.0-0.5); LYMPH# 1.01 X1000 (1.2-3.4); LYMPH% 5.1 % (20.5-51.1); MANUAL DIFF NEEDED? YES; MCH 24.2 PG (27-31); MCHC 32.6 g/dL (33-37); MCV 74.2 FL (81-99); MONO# 1.53 X1000 (0.11-0.59); MONO% 7.7 % (1.7-9.3); MPV 8.7 FL (7.4-10.4); NEUT% 84.1 % (42.2-75.2); PLT 322 X1000 (130-400); RBC 3.64 XMIL (4.2-5.4)
[2017-02-26 07:38] LABS: EOS 2 % (1-10); LYMPHS 4 % (21-51)
[2017-02-26] MEDS: SODIUM CHLORIDE 0.9% INJ SCH ×2 (08:58→20:21)
[2017-02-26] MEDS: CULTURELLE PO SCH ×2 (08:58→20:21)
[2017-02-26] MEDS: ICAR-C PO SCH ×2 (08:58→20:21)
[2017-02-26] MEDS: CENTRUM SILVER PO SCH (08:58)
[2017-02-26] MEDS: PROTONIX IV SCH ×2 (08:58→20:21)
--- NOTE | 2017-02-26 15:09 | PROGRESS NOTE ---
DATE: 02/26/2017 SUBJECTIVE: She is having bowel movements. She is more drowsy per the family. She is being diuresed by the Medicine Service. OBJECTIVE: Vital Signs: No fevers. Pulse 93, blood pressure 145/75, oxygen saturation 98% on nasal cannula. General: She is sleeping and breathing comfortably. Cardiovascular: Normal rate, regular rhythm. Abdomen: I did not wake her to examine her abdomen as she is resting at this point. LABS: White count was down to 19, hematocrit 27, creatinine is 1.0, glucose 132. ASSESSMENT/PLAN: This is an 86-year-old female with diverticulitis; likely pelvic abscess is related to this as well. She has got multiple other medical issues. She is quite debilitated and appears to have cirrhosis. Talked to the family about this and they do not wish to pursue any surgical intervention. We will pursue maximal non operative management at this point. She will need some kind of parenteral support at this point I think given her low albumin. I anticipate it will be several days before she is adequately taking enteral nutrition. She needs bowel rest currently for her diverticulitis. We will continue to follow along, but I think she is improving slowly with antibiotics. cc: Deion Bradford MD
--- NOTE | 2017-02-26 15:52 | PROGRESS NOTE ---
DATE: 02/26/2017 PRESENT ILLNESS: The patient has multiple pelvic abscesses and increasing pleural effusions and bibasilar infiltrates in both lungs. MEDICATION: The patient has now been on clindamycin and Aztreonam for 3 days. PHYSICAL EXAMINATION: The temperature is 98 degrees, pulse 93, respirations 18, blood pressure 145/75. Generally, this is an ill-appearing, elderly female. She is lethargic. In fact, I cannot wake her up now, but she is not having any trouble breathing. Lungs clear to auscultation. Cardiovascular: Heart rate is irregular. Abdomen remains distended, and it was not tender but I cannot tell if it really was not tender or is because the patient has a depressed level of consciousness and does not feel it. LABORATORY DATA AND X-RAY: The CBC today shows the white count is down to 19,970, hemoglobin 8.8, and platelet count 322,000. Creatinine is 1. GFR is 53. Chest x-ray shows bibasilar atelectasis and pleural effusions. ASSESSMENT AND PLAN: The patient has multiple abscesses. I think it is a good sign that the white count is down, however, according to the person sitting with the patient, the patient has been asleep the whole day and has not been eating. My plan is to continue the current antibiotics. The patient's comorbidities: She is elderly. She has a history of diverticulitis and does now also have hepatitis A, although I doubt is playing much of a role in her present illness. cc: Ivan Warner MD
--- NOTE | 2017-02-26 17:48 | PROGRESS NOTE ---
DATE: 02/26/2017 SUBJECTIVE: The patient did not sleep well last night. She was up all night. OBJECTIVE: Vital Signs: Temperature 98 degrees, blood pressure 145/75, heart rate 93, respirations 18, O2 saturations 98% on 2 L nasal cannula. General: This is an elderly female, lying in bed, in no acute distress. Head: Normocephalic atraumatic. Heart: S1, S2. Normal. Regular rate and rhythm. Lungs: Clear to auscultation bilaterally. No wheezing. No rales. No rhonchi. Abdomen: Positive bowel sounds. Soft, nontender, nondistended. Extremities: No edema. No cyanosis. No calf tenderness. Neurologic: The patient is alert and oriented x3. LABS: White blood cell count 19, hemoglobin 8.8, hematocrit 27, platelets 322, 000. Sodium 138, potassium 3.8, chloride 104, CO2 27, BUN 27, creatinine 1, glucose 132, calcium 7.9. AST 26, ALT 20, alkaline phosphatase 77. Albumin 1.6. ASSESSMENT AND PLAN: 1. Multiple pelvic abscesses. We will continue on the current IV antibiotic regimen as directed by Dr. Warner. 2. Bilateral pleural effusions. Stable. 3. Leukocytosis. Improved. Continue on IV antibiotic therapy. 4. Iron deficiency anemia. Continue with iron supplementation. 5. Severe protein calorie malnutrition. Continue with Clinimix plus Ensure shakes with each meal. 6. Deep vein thrombosis prophylaxis. Continue on Lovenox. cc: Brissa Dinero MD MTDD
[2017-02-26] MEDS: LOVENOX SUBQ SCH (17:52)
[2017-02-27] MEDS: CLINIMIX E 4.25%-5% SOLUTION 1,000 ML IV SCH ×2 (03:27→17:34)
[2017-02-27] MEDS: AZACTAM 2 GM in NS 100 ML IV SCH ×3 (03:27→19:08)
[2017-02-27] MEDS: CLINDAMYCIN 600 MG/NS 600 MG/50 ML IVPB IV SCH ×3 (04:12→21:06)
[2017-02-27 06:39] LABS: BASO% 0.4 % (0.0-0.8); EOS# 0.47 X1000 (0.0-0.7); EOS% 2.3 % (0.0-10.0); HEMATOCRIT 26.2 % (37.0-47.0); HEMOGLOBIN 8.6 g/dL (12.0-16.0); IMM GRAN% 1.5 % (0.0-0.5); LYMPH% 5.9 % (20.5-51.1); MANUAL DIFF NEEDED? YES; MCH 24.2 PG (27-31); MCHC 32.8 g/dL (33-37); MCV 73.6 FL (81-99); MONO# 1.78 X1000 (0.11-0.59); MONO% 8.8 % (1.7-9.3); MPV 8.7 FL (7.4-10.4); NEUT% 81.1 % (42.2-75.2); PLT 316 X1000 (130-400); RBC 3.56 XMIL (4.2-5.4)
[2017-02-27 06:56] LABS: CALCIUM 8.3 mg/dL (8.8-10.2); POTASSIUM 3.6 mmol/L (3.5-5.1)
[2017-02-27] MEDS: SYNTHROID PO SCH (06:57)
[2017-02-27 07:00] LABS: BANDS 6 % (0-1); EOS 2 % (1-10); LYMPHS 4 % (21-51); MONO 12 % (1-9)
[2017-02-27] MEDS: CENTRUM SILVER PO SCH (09:45)
[2017-02-27] MEDS: ICAR-C PO SCH ×2 (09:45→21:05)
[2017-02-27] MEDS: PROTONIX IV SCH ×2 (09:45→21:06)
[2017-02-27] MEDS: SODIUM CHLORIDE 0.9% INJ SCH ×3 (09:45→21:06)
[2017-02-27] MEDS: CULTURELLE PO SCH ×2 (09:45→21:05)
[2017-02-27 12:12] LABS: URINE CULTURE NEEDED? NO; URINE MICRO REVIEW NEEDED? NO; URINE SOURCE CATH
[2017-02-27 12:35] LABS: BILIRUBIN URINE NEGATIVE (NEGATIVE); BLOOD URINE NEGATIVE (NEGATIVE); COLOR YELLOW; GLUCOSE URINE NEGATIVE (NEGATIVE); LEUKOCYTES URINE NEGATIVE (NEGATIVE); NITRITE URINE NEGATIVE (NEGATIVE); PROTEIN URINE 100 mg/dL (NEGATIVE); TURBIDITY URINE CLEAR (CLEAR); UROBILINOGEN URINE NORMAL (NORMAL)
[2017-02-27 12:38] LABS: UR EPITHELIAL CELLS <10 /HPF (<10); URINE BACTERIA NEGATIVE /HPF; URINE RBC <10 /HPF (<10); URINE WBC <10 /HPF (<10)
[2017-02-27 12:47] LABS: INR 1.23; PROTIME 13.1 Seconds (9.2-11.7)
[2017-02-27] MEDS ORDERED: NS 250 ML ONE (13:25)
--- NOTE | 2017-02-27 14:11 | PROGRESS NOTE ---
DATE: 02/27/2017 SUBJECTIVE: There has not been much change in her abdominal symptoms. She continues to complain of some lower abdominal pain. OBJECTIVE: Vital Signs: She is afebrile. Vital signs are stable. General: She is awake and alert. No acute distress. Gastrointestinal: Soft, nondistended. She is tender along her lower abdomen. No rebound or guarding. LABORATORY: White cell count 20,000. ASSESSMENT AND PLAN: An 86-year-old female with perforated diverticulitis and pericolic abscess in the pelvis. Per the family's wishes we are treating her with antibiotics alone as she is quite debilitated and has a high operative risk. cc: Jude Suarez MD
--- NOTE | 2017-02-27 14:17 | PROGRESS NOTE ---
DATE: 02/27/2017 SUBJECTIVE: The patient is resting comfortably in bed. No acute events noted overnight. She did have an episode of diarrhea this morning. OBJECTIVE: Vital Signs: Temperature 98.9 degrees, blood pressure 144/71, heart rate 86, respirations 20, O2 saturations 92% on 2 L nasal cannula. General: This is an elderly female, lying in bed, in no acute distress. Head: Normocephalic, atraumatic. Heart: S1, S2. Normal. Regular rate and rhythm. Lungs: Equal air entry bilaterally. Diminished breath sounds at the bases. Abdomen: Positive bowel sounds. Soft, nontender, nondistended. Extremities: No edema. No cyanosis. No calf tenderness. Neurologic: The patient is alert and oriented x3. LABS: White blood cell count 20, hemoglobin 8.6, hematocrit 26, platelets 316,000. Sodium 137, potassium 3.6, chloride 103, CO2 27, BUN 27, creatinine 0.9, glucose 120. ASSESSMENT AND PLAN: 1. Multiple pelvic abscesses. Continue on IV antibiotic therapy as directed by Dr. Warner. 2. Leukocytosis. Unchanged. Continue on IV antibiotic therapy. 3. Severe protein calorie malnutrition. The patient will be started on total parenteral nutrition once a PICC line has been placed. 4. Iron deficiency anemia. Continue on iron supplementation. 5. Diarrhea. We will check stool studies. 6. Deep vein thrombosis prophylaxis. Continue on Lovenox. cc: Brissa Dinero MD
--- NOTE | 2017-02-27 14:50 | Diag Imaging Result Doc PS360 ---
EXAM: CHEST-PORTABLE INDICATION: picc line placement TECHNIQUE: One view COMPARISON: 02/26/2017 FINDINGS: The newly placed right PICC line is identified. The tip projects over the region of the atriocaval junction in the expected position. There are worsening bilateral pleural effusions with bibasilar atelectasis and/or infiltrate. There is worsening pulmonary edema. Cardiac silhouette is stable. IMPRESSION: 1.Interval placement of right PICC line as described. 2.Increasing bilateral pleural effusions with adjacent atelectasis and/or infiltrate and worsening of edema. Electronically signed by Ever Deng 02/27/2017 2:48 PM
[2017-02-27] MEDS: LOVENOX SUBQ SCH (16:31)
[2017-02-27] MEDS: LIPOSYN 20% 250 ML IV SCH (17:16)
[2017-02-27] MEDS: TPN ELECTROLYTES 20 ML, MAGNESIUM SULFATE 5 MEQ, POTASSIUM CHLORIDE 20 MEQ, SODIUM PHOS... IV SCH ×8 (17:16)
[2017-02-27] MEDS ORDERED: D10W 1,000 ML IV PRN (18:00)
[2017-02-28] MEDS: SYNTHROID PO SCH ×2 (05:27→09:54)
[2017-02-28] MEDS: AZACTAM 2 GM in NS 100 ML IV SCH ×3 (05:27→20:55)
[2017-02-28] MEDS: CLINDAMYCIN 600 MG/NS 600 MG/50 ML IVPB IV SCH ×3 (05:27→20:04)
[2017-02-28 07:07] LABS: BASO% 0.8 % (0.0-0.8); EOS# 0.39 X1000 (0.0-0.7); HEMATOCRIT 25.5 % (37.0-47.0); HEMOGLOBIN 8.7 g/dL (12.0-16.0); IMM GRAN# 0.42 X1000 (0.0-0.04); IMM GRAN% 2.2 % (0.0-0.5); LYMPH# 1.32 X1000 (1.2-3.4); LYMPH% 6.9 % (20.5-51.1); MANUAL DIFF NEEDED? YES; MCH 24.6 PG (27-31); MCHC 34.1 g/dL (33-37); MCV 72.2 FL (81-99); MONO# 1.84 X1000 (0.11-0.59); MONO% 9.5 % (1.7-9.3); MPV 8.6 FL (7.4-10.4); NEUT% 78.6 % (42.2-75.2); PLT 323 X1000 (130-400); RBC 3.53 XMIL (4.2-5.4)
[2017-02-28 07:22] LABS: AGAP 10; BUN 24 mg/dL (8-22); CALCIUM 8.2 mg/dL (8.8-10.2); CHLORIDE 103 mmol/L (98-107); COSMO 285; POTASSIUM 3.6 mmol/L (3.5-5.1); SODIUM 138 mmol/L (136-145); TCO2 25 mmol/L (25-35)
[2017-02-28 07:30] LABS: BANDS 8 % (0-1); EOS 2 % (1-10); LYMPHS 8 % (21-51); MONO 8 % (1-9)
[2017-02-28 09:29] LABS: ALBUMIN 1.6 g/dL (3.5-5.0); ALKALINE PHOSPHATASE 94 U/L (32-104); DIRECT BILIRUBIN < 0.10 mg/dL (0.00-0.20); GOT 43 U/L (10-30); GPT 21 U/L (10-36); MAGNESIUM 1.9 mg/dL (1.5-2.7); TOTAL BILIRUBIN 0.18 mg/dL (0.20-1.00); TOTAL PROTEIN 4.8 g/dL (6.3-8.3)
[2017-02-28] MEDS: ULTRAM PO PRN (09:50)
[2017-02-28] MEDS: CULTURELLE PO SCH ×2 (09:51→20:04)
[2017-02-28] MEDS: PROTONIX IV SCH ×2 (09:51→20:04)
[2017-02-28] MEDS: ICAR-C PO SCH ×2 (09:51→20:05)
[2017-02-28] MEDS: CENTRUM SILVER PO SCH (09:51)
[2017-02-28 10:13] LABS: PREALBUMIN 6.4 mg/dL (20-40)
--- NOTE | 2017-02-28 10:16 | PROGRESS NOTE ---
DATE: 02/28/2017 SUBJECTIVE: The patient feels lousy, mainly weak. She denies any significant abdominal pain today. OBJECTIVE: Vital Signs: She is afebrile. Vital signs are stable. Pulse was around 100. General: She is alert and oriented x3. Sitting up in the chair. Gastrointestinal: Soft, nondistended, nontender today. Laboratory: White blood cell count 19,000. ASSESSMENT/PLAN: An 86-year-old female with a pelvic abscess. This is likely secondary to diverticulitis. Overall, she is stable, perhaps mildly improved with the white count a little bit down today and less pain and tenderness. We will continue broad-spectrum antibiotics and supportive care. She is on total parenteral nutrition. cc: Jude Suarez MD
--- NOTE | 2017-02-28 12:11 | Diag Imaging Result Doc PS360 ---
EXAM: HEAD W/O CONTRAST TECHNIQUE: Dose reduction protocol was used. INDICATION: altered mental status COMPARISON: None. FINDINGS: There is extensive low-attenuation in the periventricular and subcortical white matter suggesting advanced microangiopathy. There are a few chronic appearing lacunar infarcts involving the basal ganglion on the left and the external capsule on the right. The ventricles are prominent suggesting atrophy. There is no definite acute infarct given the limited sensitivity of CT versus MRI. There is no discrete intracranial mass, mass effect, or intracranial hemorrhage. The surrounding soft tissues and bony structures are essentially unremarkable. IMPRESSION: Extensive chronic appearing changes as described. No definite acute intracranial pathology. Electronically signed by Ever Deng 02/28/2017 12:09 PM
[2017-02-28] MEDS ORDERED: SODIUM CHLORIDE 0.9% INJ PRN (15:18)
--- NOTE | 2017-02-28 15:35 | PROGRESS NOTE ---
DATE: 02/28/2017 SUBJECTIVE: The patient was noted to be very confused. She states that it is 1917 and that she is at home in bed. OBJECTIVE: Vital Signs: Temperature 98.2 degrees, blood pressure 153/70, heart rate 91, respirations 16, O2 saturations 97% on 2 L nasal cannula. General: This is an elderly female, lying in bed, in no acute distress. Head: Normocephalic, atraumatic. Heart : S1, S2. Normal. Tachycardic. Lungs: Equal air entry bilaterally. No crackles, no rales. Abdomen: Positive bowel sounds. Soft, nontender, nondistended. Extremities: 2 to 3+ edema. Neurologic: The patient is confused and only oriented to self. She is able to move all 4 extremities. LABORATORY: White blood cell count 19, hemoglobin 8.7, hematocrit 25, platelets 323,000. Sodium 138, potassium 3.6, chloride 103, CO2 25, BUN 24, creatinine 0.7, glucose 185, AST 43, ALT 21, alkaline phosphatase 94, albumin 1.6. ASSESSMENT AND PLAN: 1. Multiple pelvic abscesses. The patient continues on IV antibiotic therapy. However, the white blood cell count remains elevated. Further antibiotic management as per Dr. Warner. 2. Diarrhea. The stool for C. difficile is negative. We will start the patient on Imodium. Gastroenterology is following. 3. Metabolic encephalopathy. The patient is only oriented to self today. The head CT was noted to be negative. The patient's mental status change may be secondary to the underlying infection that is being treated. We will continue to monitor the patient's mental status closely for improvement. 4. Iron-deficiency anemia. Continue with iron supplementation. 5. Severe protein calorie malnutrition. Continue on total parenteral nutrition. 6. Hypothyroidism. Continue on Synthroid. 7. Leukocytosis. Unchanged. Continue on IV antibiotic therapy. 8. Deep vein thrombosis prophylaxis. Continue on Lovenox. cc: MD MESSI Leos
[2017-02-28] MEDS: LIPOSYN 20% 250 ML IV SCH (17:46)
[2017-02-28] MEDS: LOVENOX SUBQ SCH (17:46)
[2017-02-28] MEDS: TPN ELECTROLYTES 20 ML, MAGNESIUM SULFATE 5 MEQ, POTASSIUM CHLORIDE 20 MEQ, SODIUM PHOS... IV SCH ×8 (17:46)
[2017-03-01] MEDS: CLINDAMYCIN 600 MG/NS 600 MG/50 ML IVPB IV SCH ×3 (03:29→22:18)
[2017-03-01] MEDS: AZACTAM 2 GM in NS 100 ML IV SCH ×3 (04:22→21:01)
[2017-03-01 05:43] LABS: BASO% 0.2 % (0.0-0.8); EOS# 0.47 X1000 (0.0-0.7); EOS% 2.9 % (0.0-10.0); HEMATOCRIT 25.7 % (37.0-47.0); HEMOGLOBIN 8.6 g/dL (12.0-16.0); LYMPH% 6.9 % (20.5-51.1); MANUAL DIFF NEEDED? YES; MCH 25.4 PG (27-31); MCHC 33.5 g/dL (33-37); MCV 75.8 FL (81-99); MONO# 1.65 X1000 (0.11-0.59); MONO% 10.3 % (1.7-9.3); MPV 9.1 FL (7.4-10.4); NEUT% 79.7 % (42.2-75.2); PLT 311 X1000 (130-400); RBC 3.39 XMIL (4.2-5.4)
--- NOTE | 2017-03-01 06:45 | Diag Imaging Result Doc PS360 ---
EXAM: CHEST-PORTABLE HISTORY: dyspnea TECHNIQUE: Portable COMPARISON: 02/27/2017 FINDINGS: There are small bilateral pleural effusions. There is bibasilar atelectasis. The lungs are slightly better aerated on the current exam. Heart is not enlarged. No change in the right-sided PICC line. IMPRESSION: Mild interval improvement. Electronically signed by Tj Ivy 03/01/2017 6:42 AM
[2017-03-01] MEDS ORDERED: SYNTHROID IV SCH (07:00)
[2017-03-01 07:01] LABS: AGAP 10; BUN 21 mg/dL (8-22); CHLORIDE 100 mmol/L (98-107); COSMO 292; POTASSIUM 4.9 mmol/L (3.5-5.1); SODIUM 134 mmol/L (136-145); TCO2 24 mmol/L (25-35)
--- NOTE | 2017-03-01 07:11 | PROGRESS NOTE ---
DATE: 03/01/2017 PRESENT ILLNESS: The patient has multiple pelvic abscesses. She also has pleural effusions and bibasilar infiltrates versus atelectasis. MEDICATIONS: This is day 6 of treatment with clindamycin any aztreonam. PHYSICAL EXAMINATION: Vital Signs: Temperature is 98.2 degrees, pulse 96, respirations 17, blood pressure 152/72. General: This is an ill-appearing, elderly female. She is in no acute distress this morning. Lungs: Clear to auscultation. Cardiovascular: Heart rate is irregular. Abdomen: Somewhat distended but it is not tender. Neurologic: The patient is arousable , and she is coherent. Pelvis: The patient has a white vaginal discharge. LAB AND X-RAY: The CBC for today shows her white count is down to 16,030, hemoglobin 8.6, and platelet count 311,000, creatinine 0.7. GFR is greater than 60. Liver function studies are normal. CT of the head shows no acute disease. There are some lacunar infarcts and atrophy. Chest x-ray shows worse bilateral pleural effusions and bibasilar atelectasis and/or infiltrate.Neurologic: The patient is coherent today. She can move her extremities. There is no tremor. A new chest x-ray his a Penta the there is the read the reading of the newest chest x-ray is pending. ASSESSMENT AND PLAN: The patient has pelvic abscesses. The plan is to continue with her current antibiotics. Also, I have ordered some Lotrimin, vaginal cream. The patient has vinay vaginitis and possibly pneumonia. COMORBIDITIES: She is elderly. She has a history of diverticulitis and also she has hepatitis A. Overall I think the patient is improving. cc: Ivan Warner MD [facility]
[2017-03-01] MEDS: HUMULIN R SUBQ SCH ×4 (07:17→21:01)
[2017-03-01 08:49] LABS: BANDS 4 % (0-1); LYMPHS 4 % (21-51); MONO 14 % (1-9)
[2017-03-01] MEDS: CENTRUM SILVER PO SCH (09:27)
[2017-03-01] MEDS: MONISTAT-7 VAG CREAM VAG SCH (09:27)
[2017-03-01] MEDS: CULTURELLE PO SCH ×2 (09:27→21:01)
[2017-03-01] MEDS: ICAR-C PO SCH ×2 (09:27→21:01)
[2017-03-01] MEDS: PROTONIX IV SCH (09:27)
[2017-03-01 10:35] LABS: ALBUMIN 1.2 g/dL (3.5-5.0); ALKALINE PHOSPHATASE 84 U/L (32-104); DIRECT BILIRUBIN < 0.20 mg/dL (0.00-0.20); GOT 41 U/L (10-30); GPT 20 U/L (10-36); MAGNESIUM 2.4 mg/dL (1.5-2.7); TOTAL BILIRUBIN 0.12 mg/dL (0.20-1.00); TOTAL PROTEIN 5.3 g/dL (6.3-8.3)
--- NOTE | 2017-03-01 11:10 | PROGRESS NOTE ---
DATE: 03/01/2017 SUBJECTIVE: The patient is currently sitting in a chair. She had delirium last night. She was given tramadol and [place] which according to the family makes her drowsy and confused. Her last dose was last night. She has been NPO because of delirium. Her white count is trending down. She denies any fevers, rigors, or chills. She is on TPN. She denies any fevers overnight. She denies any nausea or vomiting last night. She is taking medicines by mouth. She had 1 liquid bowel movement this morning. PHYSICAL EXAMINATION: Vital Signs: Temperature 98.6, pulse rate of 98, respiratory rate 18, blood pressure 116/71, saturating 92% on nasal cannula of 2 L. Body weight of 166 pounds 11 ounces. General Appearance: Moderately built, moderately nourished, sitting in chair, in no acute distress. HEENT: Pale conjunctivae. No icterus. Neck: Is supple. Abdomen: Discomfort in the periumbilical region and in the lower abdomen. Protuberant abdomen. Mild distention noted. Bowel sounds are present. No guarding or rebound. Extremities: No cyanosis, clubbing. Neurologic: She was awake and alert. Answers simple questions. She was oriented to time and person. LABS: Hemoglobin and hematocrit are 8.6 and 25.7, white count of 16.03, platelet count of 311,000, MCV of 75.8. Sodium of 132, potassium 4.9, chloride 100, bicarb 20, anion gap of 10, BUN of 21, creatinine 0.7, glucose of 470, calcium is 8. Albumin last checked was yesterday was 1.6. Stool studies until yesterday showed a few white cells. Negative culture. C. difficile toxin is negative and C. difficile antigen is negative. Blood cultures have been negative x2 since 02/21/2017. IMPRESSION AND PLAN: 1. Diverticulitis complicated with multiple pelvic abscesses. She is currently on clindamycin and aztreonam per Dr. Warner and this is helping her. Her white count is trending down. 2. Diarrhea. Stools studies are negative. I think it is likely secondary to diverticulitis. We will start on Culturelle 1 capsule b.i.d. 3. Metabolic encephalopathy. We may have to look at her medications and reduce the narcotics and Ultram if possible. We will leave that discussion to the primary care team to decide. 4. Iron deficiency anemia. We will give her Iron C b.i.d. and multivitamin 1 daily. 5. Severe protein calorie malnutrition. Continue on TPN. 6. Hypothyroidism. Start on Synthroid. 7. GI prophylaxis to continue. 8. Once cleared by the primary care team, she can be started orally on a liquid diet. 9. Further recommendations pending hospital course. cc: MD Brissa Genao MD Leroy F. Harris, MD R. Tyler Harney, MD MTDD
[2017-03-01] MEDS ORDERED: ZYPREXA ZYDIS PO PRN (13:03)
[2017-03-01] MEDS ORDERED: ALBUMIN 25% IV ONE (13:03)
[2017-03-01] MEDS: LASIX IV SCH (14:25)
--- NOTE | 2017-03-01 15:23 | PROGRESS NOTE ---
DATE: 03/01/2017 SUBJECTIVE: Patient has no focal complaints. She does not feel good. Apparently, she had an acute agitation episode which prompted putting her in CI for monitoring. OBJECTIVE: Vital signs: Blood pressure 172/73, heart rate 102, respiratory rate 20, temperature 97.3 degrees, 95% on 2 L. Cardiovascular: Regular rate and rhythm. Pulmonary: Bilateral breath sounds. Clear to auscultation. GI: Soft, nontender, nondistended. Bowel sounds are positive. LABORATORY DATA: White count 16, hemoglobin and hematocrit 8 and 25, platelets 311,000. Sodium 134, glucose reportedly 470 this morning, but repeat was 114. Phosphorus is 4.8, albumin is still very low at 1.2. PROBLEM LIST: 1. Diverticular abscesses. She is on IV antibiotics. In particular, she is on clindamycin and aztreonam, day 6. 2. which were felt to be diverticular. 3. Severe protein calorie malnutrition. She is on total parenteral nutrition. The only thing I am a little concerned about is she I feel like is getting some 3rd spacing and we may need to do some diuresis, I may give her 1 dose of albumin, too, to just kind of help to get some of this fluid down. 4. Anemia, appears to be stable. 5. Hypothyroidism, appears to be stable. We are going to convert her to p.o. now and work on decreasing her total parenteral nutrition. 6. Disposition. She is very weak. I think she probably will end up needing rehab versus home IV therapy. There is some discussion about home total parenteral nutrition, but I am not sure if we have committed to that plan at this point. Again were going to try to feed her and just do the hyperalimentation for the time being. 7. Metabolic encephalopathy. She appears to be at baseline. She is 86 years old, almost 87. Tomorrow will be her 87th birthday. I not sure if she may not have a little bit of owning. I will just put in some p.r.n. medication for that at night and follow closely and we will monitor her for those. At this point, I do not think she needs to stay in step- down. Clinically she appears to be stable. We will work on that and she will likely need rehab. We will see how she does with her progression with physical therapy. cc: Dave Hamlin MD
[2017-03-01] MEDS: LOVENOX SUBQ SCH (17:52)
[2017-03-01] MEDS: LIPOSYN 20% 250 ML IV SCH (17:52)
[2017-03-01] MEDS: TPN ELECTROLYTES 20 ML, MAGNESIUM SULFATE 5 MEQ, POTASSIUM CHLORIDE 20 MEQ, SODIUM PHOS... IV SCH ×8 (17:52)
[2017-03-01] MEDS: CALMOSEPTINE OINTMENT TOP PRN (21:22)
[2017-03-02] MEDS: LASIX IV SCH (02:05)
[2017-03-02] MEDS: CLINDAMYCIN 600 MG/NS 600 MG/50 ML IVPB IV SCH ×3 (05:27→21:59)
[2017-03-02 05:42] LABS: HEMATOCRIT 27.5 % (37.0-47.0); HEMOGLOBIN 9.4 g/dL (12.0-16.0); MCH 24.4 PG (27-31); MCHC 34.2 g/dL (33-37); MCV 71.4 FL (81-99); RBC 3.85 XMIL (4.2-5.4)
[2017-03-02 05:43] LABS: BASO% 0.3 % (0.0-0.8); EOS% 1.3 % (0.0-10.0); IMM GRAN% 1.3 % (0.0-0.5); LYMPH# 1.09 X1000 (1.2-3.4); MANUAL DIFF NEEDED? NO; MONO# 1.21 X1000 (0.11-0.59); MONO% 7.7 % (1.7-9.3); MPV 9.1 FL (7.4-10.4); NEUT% 82.4 % (42.2-75.2); PLT 353 X1000 (130-400)
[2017-03-02] MEDS: AZACTAM 2 GM in NS 100 ML IV SCH ×3 (06:11→22:00)
[2017-03-02 06:13] LABS: AGAP 9; BUN 18 mg/dL (8-22); CHLORIDE 101 mmol/L (98-107); COSMO 279; MAGNESIUM 1.9 mg/dL (1.5-2.7); POTASSIUM 3.3 mmol/L (3.5-5.1); SODIUM 137 mmol/L (136-145); TCO2 27 mmol/L (25-35)
[2017-03-02] MEDS: HUMULIN R SUBQ SCH ×3 (06:13→16:07)
[2017-03-02] MEDS: PRILOSEC PO SCH (06:14)
[2017-03-02] MEDS: SYNTHROID PO SCH (06:14)
--- NOTE | 2017-03-02 07:20 | PROGRESS NOTE ---
DATE: 03/02/2017 SUBJECTIVE: Feels better. Pain is improved. She is tolerating some liquids. OBJECTIVE: Vital Signs: No fevers. Heart rate has been in the low 100s. Blood pressure 150/75. Oxygen saturation 94% on 2 L. General: She is alert, in no acute distress. Abdomen: Soft, nontender, mildly distended. No peritonitis. This is improved from previous. Extremities: There is lower extremity edema. LABORATORY DATA: White count is down to 15, hematocrit is 27. Creatinine 0.8. ASSESSMENT AND PLAN: This is an 87-year-old female with diverticulitis, pelvic abscesses, who is improving with IV antibiotics. She is very debilitated and deconditioned and malnourished. She is on total parenteral nutrition, tolerating clears. If her white count downtrends again tomorrow, I think we can start advancing her diet enterally, as long as her pain does not return. Otherwise, will continue broad-spectrum antibiotics. The family's stance and mine is to avoid any surgical intervention, and I think that there is none indicated at this point. cc: Deion Bradford MD
[2017-03-02] MEDS: CULTURELLE PO SCH ×2 (10:21→20:32)
[2017-03-02] MEDS: ICAR-C PO SCH ×2 (10:21→20:32)
[2017-03-02] MEDS: CENTRUM SILVER PO SCH (10:22)
[2017-03-02] MEDS: LOVENOX SUBQ SCH (16:08)
--- NOTE | 2017-03-02 18:02 | PROGRESS NOTE ---
DATE: 03/02/2017 PRESENT ILLNESS: The patient has multiple pelvic abscesses. She also has pleural effusions and bibasilar infiltrates versus atelectasis. MEDICATIONS: Patient has been on clindamycin and aztreonam now for 7 days. PHYSICAL EXAMINATION: Vital Signs: Temperature is 99 degrees, pulse 94, respirations 14, blood pressure 159/79. General: This is an ill-appearing, elderly female. Today she is complaining that she is short of breath. Lungs: Clear to auscultation. Cardiovascular: Heart rate is irregular. Abdomen: Distended and tender. Neurologic: The patient was lethargic tonight. After talking to me she closed her eyes and appeared to be taking a nap. LABORATORY AND X-RAY: CBC today showed a white count of 15,650, hemoglobin 9.4, and platelet count 353,000. Patient's creatinine today is 0.8. The GFR is greater than 60. The patient's liver function studies are normal. There is no new microbiologic data. ASSESSMENT AND PLAN: 1. The patient has multiple pelvic abscesses and she also may have a bibasilar pneumonia. Also yesterday, it was felt she may have Nithya vaginitis because of a whitish vaginal discharge. The plan is to continue clindamycin and aztreonam and to continue the patient's vaginal cream. I discussed with one of the patient's family members about the patient's illness, including prognosis. 2. Comorbidities: The patient is elderly. She has a history of diverticulitis and hepatitis A. Today, it seems to me the patient took a step backwards in that she is complaining of trouble breathing and her abdomen was tender on palpation. cc: Ivan Warner MD
[2017-03-02] MEDS ORDERED: LASIX IV ONE (18:19)
[2017-03-02] MEDS: TPN ELECTROLYTES 20 ML, MAGNESIUM SULFATE 5 MEQ, POTASSIUM CHLORIDE 20 MEQ, SODIUM PHOS... IV SCH ×8 (18:44)
[2017-03-02] MEDS: LIPOSYN 20% 250 ML IV SCH (18:44)
--- NOTE | 2017-03-02 18:54 | PROGRESS NOTE ---
DATE: 03/02/2017 SUBJECTIVE: Patient complaining of not feeling well. Abdominal exam shows swelling. She had a smothering episode although her saturations have been fine. OBJECTIVE: 182/79 BP, heart rate 115, respiratory rate 24, temperature 98.9 degrees, 92% on 2 L.Cardiovascular: Regular rate and rhythm. Pulmonary: Bilateral breath sounds. Diminished at bases. GI: Soft, nontender, nondistended. Bowel sounds are positive, hyperactive. LABORATORY DATA: Potassium 3.3. White count 15, H and H 9 and 27. Platelets 343,000. PROBLEM LIST: 1. Diverticular abscesses. She is on day 7 of clindamycin and aztreonam. 2. Severe protein-calorie malnutrition. She is on TPN. 3. Anemia, appears to be stable. 4. Encephalopathy. She has stabilized from that standpoint. 5. She has had some mild tachycardia, shortness of breath. We will get a chest x-ray and evaluate for volume overload versus other things. Yesterday I did give her some Lasix because I was concerned about some volume overload issues. She had a chest x-ray done yesterday which showed some interstitial air space disease on the right and left. Probably give her a little bit more Lasix just to help draw some of that fluid out and we will follow. DISPOSITION: Pending her clinical course. Again, I think she probably if does not further decompensate may need inpatient rehab. cc: Dave Hamlin MD
--- NOTE | 2017-03-02 19:15 | Diag Imaging Result Doc PS360 ---
EXAM: ABDOMEN FLAT/UPRIGHT HISTORY: pain TECHNIQUE: Two views COMPARISON: None. FINDINGS: The bowel loops are not dilated. No organomegaly. No abnormal abdominal calcifications. There are several pelvic phleboliths. 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 IMPRESSION: No acute abnormality. Electronically signed by Tj Ivy 03/02/2017 7:13 PM
[2017-03-03] MEDS: CLINDAMYCIN 600 MG/NS 600 MG/50 ML IVPB IV SCH ×3 (05:22→21:07)
[2017-03-03] MEDS: AZACTAM 2 GM in NS 100 ML IV SCH ×3 (05:22→21:07)
[2017-03-03 05:45] LABS: HEMOGLOBIN 9.3 g/dL (12.0-16.0)
[2017-03-03 05:46] LABS: BASO% 0.4 % (0.0-0.8); EOS# 0.17 X1000 (0.0-0.7); IMM GRAN# 0.18 X1000 (0.0-0.04); IMM GRAN% 1.1 % (0.0-0.5); LYMPH# 1.19 X1000 (1.2-3.4); LYMPH% 7.3 % (20.5-51.1); MANUAL DIFF NEEDED? NO; MCH 24.5 PG (27-31); MCHC 34.4 g/dL (33-37); MCV 71.1 FL (81-99); MONO# 1.28 X1000 (0.11-0.59); MONO% 7.9 % (1.7-9.3); MPV 9.6 FL (7.4-10.4); NEUT% 82.3 % (42.2-75.2); PLT 348 X1000 (130-400)
[2017-03-03] MEDS: HUMULIN R SUBQ SCH ×5 (05:47→20:47)
[2017-03-03 06:07] LABS: AGAP 9; BUN 18 mg/dL (8-22); CALCIUM 7.7 mg/dL (8.8-10.2); CHLORIDE 99 mmol/L (98-107); COSMO 277; MAGNESIUM 1.9 mg/dL (1.5-2.7); POTASSIUM 3.3 mmol/L (3.5-5.1); SODIUM 136 mmol/L (136-145); TCO2 28 mmol/L (25-35)
[2017-03-03] MEDS: SYNTHROID PO SCH (06:20)
[2017-03-03] MEDS: PRILOSEC PO SCH (06:20)
--- NOTE | 2017-03-03 07:19 | Diag Imaging Result Doc PS360 ---
EXAM: CHEST-PORTABLE HISTORY: dyspnea TECHNIQUE: Portable COMPARISON: 03/01/2017 FINDINGS: No change in the right-sided PICC line. There is a moderate-sized right-sided pleural effusion and a believe there is a small left pleural effusion is well. There are increased interstitial markings in the mid lower right lung and in the lower left. Overall findings are quite similar to that of the prior exam IMPRESSION: Stable chest Electronically signed by Tj Ivy 03/03/2017 7:17 AM
[2017-03-03] MEDS: CENTRUM SILVER PO SCH (08:12)
[2017-03-03] MEDS: CULTURELLE PO SCH ×2 (08:12→20:46)
[2017-03-03] MEDS: ICAR-C PO SCH ×2 (08:12→20:46)
[2017-03-03] MEDS: MONISTAT-7 VAG CREAM VAG SCH (08:24)
--- NOTE | 2017-03-03 09:48 | PROGRESS NOTE ---
DATE: 03/03/2017 SUBJECTIVE: No abdominal pain. The nurses are reporting bowel movements. She tolerated some liquids without any nausea or vomiting. OBJECTIVE: Vital Signs: No fevers. Heart rates have been occasionally in the low 100s. Oxygen saturation 98% on 2 L. General: She is alert. Son did report some confusion last night. Abdomen: Mildly distended. Tympanic but nontender and soft. I do not see any peritonitis. Extremities: Does have some lower extremity edema. Laboratory Data: White count 16, hematocrit is 27. Creatinine 0.7. ASSESSMENT/PLAN: An 87-year-old female with likely diverticular abscess. Her white count had started falling but has plateaued but clinically, she looks better. Her exam is benign. She is now tolerating clear liquids without worsening her pain. She is having bowel function. We will continue to monitor her. If her white count fails to continue to downtrend, it may be worth repeating a CT scan to see if these have developed a collection that is amenable to percutaneous drainage. Multiple conversations with the family. They all agree that surgery is not an option so we will continue to pursue everything short of a colectomy and colostomy, which would be most definitely what she would require. cc: Deion Bradford MD
[2017-03-03] MEDS: LOVENOX SUBQ SCH (16:32)
--- NOTE | 2017-03-03 17:17 | PROGRESS NOTE ---
DATE: 03/03/2017 PRESENT ILLNESS: The patient has multiple pelvic abscesses. She also has pleural effusions and bibasilar infiltrates versus atelectasis. Also, she has developed recently vaginal candidiasis. MEDICATIONS: This is the 8th day of treatment with clindamycin and aztreonam. Approximately 2 days ago patient started using Lotrimin cream to be placed vaginally. PHYSICAL EXAMINATION: Vital signs: Temperature 98.7 degrees, pulse 100, respirations 14 blood pressure 147/71. General: This is an ill-appearing, elderly female. She is in no acute distress. Lungs: Clear to auscultation. Cardiovascular: Heart rate today seemed to be regular. Abdomen: Was still distended and tender. LAB AND X-RAY: The patient's CBC shows a white count of 16,300, hemoglobin 9.3, and platelet count 348,000. Creatinine is 0.7. GFR is greater than 60. ASSESSMENT AND PLAN: Patient has multiple pelvic abscesses and possible bibasilar pneumonia. The plan will be to continue with the patient's current antibiotic regimen. Also Lotrimin cream has been ordered for the patient's vinay vaginitis. The patient's comorbidities: She is elderly. She has diverticulitis and hepatitis A. cc: Ivan Warner MD
[2017-03-03] MEDS: TPN ELECTROLYTES 20 ML, MAGNESIUM SULFATE 5 MEQ, POTASSIUM CHLORIDE 20 MEQ, SODIUM PHOS... IV SCH ×8 (18:07)
[2017-03-03] MEDS: LIPOSYN 20% 250 ML IV SCH (18:07)
--- NOTE | 2017-03-03 18:58 | PROGRESS NOTE ---
DATE: 03/03/2017 SUBJECTIVE: Patient has no focal complaints. She is still not eating very well. No nausea or vomiting. Abdominal pain is stable. OBJECTIVE: Vital signs: Blood pressure 141/73, heart rate of 101, respiratory rate 16, temperature 99 degrees, 92% on 2 L. Cardiovascular: Regular rate and rhythm. Pulmonary: Bilateral breath sounds. Clear to auscultation. GI: Soft, nontender, nondistended. Bowel sounds are positive. LABORATORY DATA: White count 16, hemoglobin and hematocrit 9 and 27, platelets 348,000. Potassium 3.3. PROBLEM LIST: 1. Multiple pelvic abscesses, reportedly diverticular. She is on day 8 of clindamycin and aztreonam. 2. Severe protein calorie malnutrition. She is on TPN intravenously. Her albumin levels are still extremely low, 1.2 was the last level. We will continue to follow very closely. 3. Volume overload. She is stable. We will continue to monitor closely. 4. Hypothyroidism. She seems to be doing okay. 5. Disposition. Plan is likely for rehab when she has stabilized but we are not ready for transition at this point. She may need a repeat CT scan and evaluation for possible percutaneous drainage if there is a focal abscess. cc: Dave Hamlin MD
--- NOTE | 2017-03-03 21:16 | PROGRESS NOTE ---
DATE: 03/03/2017 SUBJECTIVE: Patient resting in bed. Her daughter was present at the bedside. The patient complains of diffuse abdominal pain, same as before. She has decreased p.o. intake. She has not moved her bowels today. She denies any fevers, rigors or chills today. She denies any vomiting blood or passing blood in the stools. OBJECTIVE: Vital signs: Temperature 98.2, pulse 110, respiratory rate 16, blood pressure 152/77, saturating 92% on 4 L nasal cannula. General: Moderately built, moderately nourished, lying in bed in no acute distress. HEENT: Pale conjunctivae, no icterus. Neck: Abdomen is distended, mildly protuberant. Bowel sounds are hypoactive. No guarding or rebound. Extremities: No cyanosis, clubbing. Neurologic: She was alert and awake. Answers questions. LABORATORY: Her hemoglobin and hematocrit is 9.3, 27, white count 16.3, platelet count of 348,000, MCV of 71.1, neutrophils 82.3%. Sodium 136, potassium 3.3, chloride 99, bicarb 28, anion gap 9, BUN of 18, creatinine 1.7, glucose 152, calcium 7.7, phosphorus 3.1, magnesium 1.9. IMPRESSION AND PLAN: 1. Multiple pelvic abscesses secondary likely to diverticular abscess. She is on day 8 of clindamycin and aztreonam. She is being followed Dr. Warner and Dr. Bradford. The patient has not shown the best improvement so far. We will discuss it with Dr. Bradford and Dr. Warner. Maybe at some point, she will need repeat imaging in form of CT scan. The patient family wants to pursue any kind of treatment to help relieve the patient's symptoms. 2. Severe protein calorie malnutrition. She continues on total parenteral nutrition. 3. Anemia. We will continue to watch, we will keep her on Iron C b.i.d. and multivitamin once daily. 4. Gastrointestinal prophylaxis with proton pump inhibitor. 5. Further recommendations to follow pending hospital course. cc: MD Deion Genao MD Leroy F. Harris, MD Alexis R. Penot, MD
[2017-03-04] MEDS: AZACTAM 2 GM in NS 100 ML IV SCH ×4 (05:16→22:10)
[2017-03-04] MEDS: CLINDAMYCIN 600 MG/NS 600 MG/50 ML IVPB IV SCH ×4 (05:16→22:10)
[2017-03-04] MEDS: PRILOSEC PO SCH (05:59)
[2017-03-04] MEDS: SYNTHROID PO SCH (05:59)
[2017-03-04] MEDS: HUMULIN R SUBQ SCH ×4 (06:02→22:10)
[2017-03-04 06:30] LABS: AGAP 8; BUN 19 mg/dL (8-22); CALCIUM 8.2 mg/dL (8.8-10.2); CHLORIDE 100 mmol/L (98-107); COSMO 280; MAGNESIUM 2.1 mg/dL (1.5-2.7); POTASSIUM 3.4 mmol/L (3.5-5.1); SODIUM 138 mmol/L (136-145); TCO2 30 mmol/L (25-35)
[2017-03-04] MEDS: CENTRUM SILVER PO SCH (08:18)
[2017-03-04] MEDS: CULTURELLE PO SCH ×2 (08:18→20:39)
[2017-03-04] MEDS: ICAR-C PO SCH ×2 (08:18→20:39)
--- NOTE | 2017-03-04 08:24 | PROGRESS NOTE ---
DATE: 03/04/2017 PRESENT ILLNESS: The patient has multiple pelvic abscesses. She also has a possible bibasilar pneumonia and more recently she had developed vaginal candidiasis. MEDICATIONS: The patient is receiving clindamycin and aztreonam. This is the ninth day of treatment with the combined antibiotics. The patient also is receiving Lotrimin cream to the vaginal area. PHYSICAL EXAMINATION: Vital Signs: Temperature is 97.9 degrees, pulse is 80, respirations are 20, blood pressure is 165/74. General: This is an elderly, ill-appearing female who is in no acute distress at this time. Lungs: Clear to auscultation. Cardiovascular: Heart rate is regular. Abdomen: Soft and nontender. IV site is not erythematous or draining. Neurologic: The patient is somewhat lethargic, but she is fully arousable. She can move her extremities. LAB AND X-RAY: The only new lab for today is a creatinine which is 0.7. There is no new radiographic study either today. ASSESSMENT AND PLAN: Patient has pelvic abscesses, and possible bibasilar pneumonia. My plan is to continue with aztreonam and clindamycin. Because of the patient's vaginitis also, I plan to continue with topical Lotrimin cream. The patient's comorbidities include being elderly, diverticulitis and hepatitis A. cc: Ivan Warner MD
[2017-03-04] MEDS: MONISTAT-7 VAG CREAM VAG SCH ×2 (08:27→08:28)
[2017-03-04 09:28] LABS: BASO% 0.5 % (0.0-0.8); EOS# 0.27 X1000 (0.0-0.7); EOS% 1.6 % (0.0-10.0); HEMATOCRIT 26.9 % (37.0-47.0); HEMOGLOBIN 9.1 g/dL (12.0-16.0); IMM GRAN# 0.12 X1000 (0.0-0.04); IMM GRAN% 0.7 % (0.0-0.5); LYMPH% 6.5 % (20.5-51.1); MANUAL DIFF NEEDED? NO; MCH 24.3 PG (27-31); MCHC 33.8 g/dL (33-37); MCV 71.7 FL (81-99); MONO# 1.22 X1000 (0.11-0.59); MONO% 7.2 % (1.7-9.3); NEUT% 83.5 % (42.2-75.2); PLT 389 X1000 (130-400); RBC 3.75 XMIL (4.2-5.4)
--- NOTE | 2017-03-04 13:15 | PROGRESS NOTE ---
DATE: 03/04/2017 SUBJECTIVE: Patient resting in bed. She complains of abdominal distention. She complains of decreased p.o. intake. She had 2 bowel movements last night. They are described as soft, brown. No blood was noted. She has continued to have poor oral intake. She is currently on TPN. She denies any fevers, rigors, or chills. She complains of abdominal soreness same as before. She has been passing some flatulence. PHYSICAL EXAMINATION: Vital signs: Temperature of 97.9 degrees, pulse rate of 80, respiratory rate 20, blood pressure 160/74, saturating 96% on 3 nasal cannula. General Appearance: Thinly built, lying in bed, in no acute. HEENT: Mild pallor. No icterus. Neck: Supple. Abdomen: Protuberant. Mild distention noted. Bowel sounds are present. No guarding. No rebound. But tenderness in the periumbilical region and pelvic and suprapubic region noted. Extremities: No cyanosis, clubbing. Neurologic: She is alert, awake, oriented. LABS: Hemoglobin and hematocrit is 9.1, 26.9, white count of 16.93, platelet count of 389,000. Sodium 138, potassium 3.4, chloride 100, bicarb 30, anion gap of 8, BUN of 19, creatinine 0.7, glucose 140, calcium is 8.2, phosphorus 3.3, magnesium 2.1. Albumin of 1.7 which is improving. IMPRESSION/PLAN: 1. Pelvic abscesses and possible bibasilar pneumonia. Continuing on aztreonam and clindamycin by Dr. Warner. 2. Diverticulitis. She continues antibiotics above. 3. Severe protein calorie malnutrition. Continue TPN. 4. Anemia. Will continue watch. Keep her on Iron C b.i.d. and multivitamin once daily. 5. GI prophylaxis. PPIs. 6. Patient may need repeat CT scan imaging at some point. We will await the recommendations from the Surgical team and the Infectious Disease team regarding another CAT scan. 7. The above plan was discussed with the patient and the family. cc: MD Deion Genao MD Leroy F. Harris, MD Alexis R. Penot, MD MTDD
[2017-03-04] MEDS: ZOFRAN IV PRN (14:14)
--- NOTE | 2017-03-04 15:47 | Diag Imaging Result Doc PS360 ---
EXAM: ABDOMEN/PELVIS W/PO AND IV CON INDICATION: f/u on abscesses TECHNIQUE: Dose reduction protocol was used. COMPARISON: 02/25/2017 FINDINGS: Prominent effusions at the lung bases and bibasilar atelectasis is similar to the previous study. There is large volume ascites throughout the abdomen and pelvis that has worsened during the interval. There is a stable nodular cirrhotic liver. The gallbladder is partially contracted. The spleen remains unremarkable. The adrenal glands and pancreas are grossly stable and unremarkable. Several small low density cystic appearing lesions involving both kidneys are again noted and are stable. There is a Garcia catheter in the urinary bladder. The pelvis is partially obscured by beam hardening artifact related to right hip arthroplasty. There is anasarca that is similar to the previous study. The loculated fluid collections in the pelvis that are concerning for abscesses are grossly stable in size. There are multiple mildly distended loops of small bowel with air-fluid levels. Although nonspecific, this may represent ileus. IMPRESSION: 1.Approximately stable multiloculated pelvic abscesses. 2.Worsening ascites. 3.Mildly distended loops of small bowel with air-fluid levels that are nonspecific but could be due to ileus given the other findings. 4.Otherwise, the abdomen and pelvis are essentially stable as compared to the previous recent study. Electronically signed by Ever Deng 03/04/2017 3:44 PM
[2017-03-04] MEDS: LOVENOX SUBQ SCH (16:11)
[2017-03-04] MEDS: TPN ELECTROLYTES 20 ML, MAGNESIUM SULFATE 5 MEQ, POTASSIUM CHLORIDE 20 MEQ, SODIUM PHOS... IV SCH ×8 (17:36)
[2017-03-04] MEDS: LIPOSYN 20% 250 ML IV SCH (17:36)
--- NOTE | 2017-03-04 18:51 | PROGRESS NOTE ---
DATE: 03/04/2017 SUBJECTIVE: Patient is still having some abdominal discomfort. Not taking much in p.o. OBJECTIVE: Vital Signs: Blood pressure 122/73, heart rate 115, respiratory rate 20, temperature 98.7, 95% on room air. Cardiovascular: Regular rate and rhythm. Pulmonary: Bilateral breath sounds. Clear to auscultation. GI: Soft, nontender, nondistended. Bowel sounds are positive. LABORATORY DATA: White count 16 which is stable. Hemoglobin and hematocrit 9 and 26.3, platelets 389. Potassium 3.4, albumin is 1.7. PROBLEM LIST: 1. Diverticular abscesses. Clinically, she is stable on her current antibiotics which is clindamycin and aztreonam, that is day 9 of both. Plan now repeat CT and evaluate if she is amenable to percutaneous drainage at the discretion of our collaborators, Dr. Bradford especially. 2. Severe protein-calorie malnutrition. She is still on total parenteral nutrition. Albumin levels were still low. She really refuses to eat basically. 3. Volume overload. Appears to be stable. 4. Hypothyroidism. Appears to be stable. DISPOSITION: Still for rehab when she has stabilized. At this point, we are not at the point of ready for discharge. I think we will review CT tomorrow with radiologist and see if it is amenable to drainage. cc: Dave Hamlin MD
[2017-03-05] MEDS: CLINDAMYCIN 600 MG/NS 600 MG/50 ML IVPB IV SCH ×3 (05:28→22:27)
[2017-03-05] MEDS: AZACTAM 2 GM in NS 100 ML IV SCH ×3 (05:28→22:28)
[2017-03-05 05:56] LABS: HEMATOCRIT 25.6 % (37.0-47.0); HEMOGLOBIN 8.4 g/dL (12.0-16.0); MCH 24.7 PG (27-31); MCHC 32.8 g/dL (33-37); MCV 75.3 FL (81-99); MPV 9.7 FL (7.4-10.4); RBC 3.4 XMIL (4.2-5.4)
[2017-03-05 06:02] LABS: AGAP 6; BUN 21 mg/dL (8-22); CALCIUM 8.6 mg/dL (8.8-10.2); CHLORIDE 100 mmol/L (98-107); COSMO 275; MAGNESIUM 2.1 mg/dL (1.5-2.7); POTASSIUM 3.6 mmol/L (3.5-5.1); SODIUM 135 mmol/L (136-145); TCO2 29 mmol/L (25-35)
[2017-03-05] MEDS: PRILOSEC PO SCH (06:12)
[2017-03-05] MEDS: HUMULIN R SUBQ SCH ×2 (06:12→15:51)
[2017-03-05] MEDS: SYNTHROID PO SCH (06:12)
[2017-03-05] MEDS: ICAR-C PO SCH ×2 (08:47→22:27)
[2017-03-05] MEDS: CULTURELLE PO SCH ×2 (08:48→22:27)
[2017-03-05] MEDS: CENTRUM SILVER PO SCH (08:48)
[2017-03-05] MEDS: MONISTAT-7 VAG CREAM VAG SCH (08:48)
--- NOTE | 2017-03-05 15:50 | PROGRESS NOTE ---
DATE: 03/05/2017 PRESENT ILLNESS: The patient continues to have multiple pelvic abscesses on CAT scan. They have not changed however there is more ascites. There also could be a bibasilar pneumonia. The patient also had developed vaginal candidiasis undoubtedly due to the fact that she has had a lot of antibiotics. MEDICATIONS: This is day 7 of receiving both clindamycin and aztreonam. PHYSICAL EXAMINATION: Vital Signs: Temperature is 98.6 degrees, pulse 101, respirations 16, blood pressure 132/59. General: This is an ill-appearing, elderly female. She is in no acute distress. Lungs: Clear to auscultation. Cardiovascular: Heart rate is regular. Abdomen: Her abdomen is distended but it does not seem to be tender. There is no guarding. LAB AND X-RAY: CT shows stable pelvic abscesses but worse ascites. Creatinine 0.8. GFR is greater than 60. [place] [address], hemoglobin 8.4 and platelet count 347,000. Creatinine is 0.8. GFR is greater than 60. ASSESSMENT AND PLAN: The patient has abdominal abscesses. Our plan now is to continue antibiotics and Dr. Bradford from Surgery is following the patient. COMORBIDITIES: She is elderly. She has previously had diverticulitis and she does have hepatitis A as well. cc: Ivan Warner MD
[2017-03-05] MEDS: LOVENOX SUBQ SCH (15:53)
[2017-03-05] MEDS: TPN ELECTROLYTES 20 ML, MAGNESIUM SULFATE 5 MEQ, POTASSIUM CHLORIDE 20 MEQ, SODIUM PHOS... IV SCH ×8 (17:18)
[2017-03-05] MEDS: LIPOSYN 20% 250 ML IV SCH (17:18)
--- NOTE | 2017-03-05 18:20 | PROGRESS NOTE ---
DATE: 03/05/2017 SUBJECTIVE: Patient has no focal complaints. OBJECTIVE: Vital Signs: Blood pressure 140/63, heart rate 109, respiratory rate 22, temperature 98.4, 98% on 4 L. Cardiovascular: Regular rate and rhythm. Pulmonary: Bilateral breath sounds, clear to auscultation. GI: Soft, nontender, nondistended. Bowel sounds are positive. Abdomen: Definitely much more distended today. PROBLEM LIST: 1. Pelvic abscesses, likely related to diverticulitis. She is on broad-spectrum antibiotics, day 9; 10 of clindamycin and aztreonam. Repeat CT shows persistent abscesses have not really changed in size. We will discuss with radiology about possible drainage. Dr. Bradford is following. Obviously, she is a very high risk surgical candidate and will not likely do well and family is not interested in putting her through a very aggressive surgery; 1) she will be difficult during the pre and intraoperative times, and I think her postoperative recuperation will be difficult as well. Considering her following problem; 2) Which is severe protein calorie malnutrition. She is on total parenteral nutrition. We will continue to follow. Albumin level still critically low. 2. Volume overload. Looks a little worse. She has more ascites. We will get IV Lasix and follow. 3. Hypothyroidism. We will continue to follow. DISPOSITION: Clinically pending her status, she will likely need rehab, although I do not think she is ready for that at this point. cc: Dave Hamlin MD
[2017-03-06] MEDS: HUMULIN R SUBQ SCH ×5 (01:46→21:21)
[2017-03-06 05:29] LABS: HEMATOCRIT 27.5 % (37.0-47.0); HEMOGLOBIN 9.1 g/dL (12.0-16.0); MCH 24.7 PG (27-31); MCHC 33.1 g/dL (33-37); MCV 74.7 FL (81-99); MPV 9.7 FL (7.4-10.4); RBC 3.68 XMIL (4.2-5.4)
[2017-03-06 05:37] LABS: AGAP 9; BUN 24 mg/dL (8-22); CALCIUM 8.4 mg/dL (8.8-10.2); CHLORIDE 99 mmol/L (98-107); COSMO 279; MAGNESIUM 2.3 mg/dL (1.5-2.7); POTASSIUM 4.1 mmol/L (3.5-5.1); SODIUM 136 mmol/L (136-145); TCO2 28 mmol/L (25-35)
[2017-03-06] MEDS: CLINDAMYCIN 600 MG/NS 600 MG/50 ML IVPB IV SCH ×3 (05:55→21:19)
[2017-03-06] MEDS: PRILOSEC PO SCH (06:41)
[2017-03-06] MEDS: SYNTHROID PO SCH (06:41)
[2017-03-06] MEDS: AZACTAM 2 GM in NS 100 ML IV SCH ×3 (06:42→23:44)
[2017-03-06] MEDS: CULTURELLE PO SCH ×2 (10:36→21:19)
[2017-03-06] MEDS: CENTRUM SILVER PO SCH (10:36)
[2017-03-06] MEDS: ICAR-C PO SCH ×2 (10:37→21:19)
[2017-03-06] MEDS: MONISTAT-7 VAG CREAM VAG SCH (10:53)
[2017-03-06] MEDS: ULTRAM PO PRN ×2 (10:59→21:19)
[2017-03-06] MEDS ORDERED: ALBUMIN 25% IV ONE ×2 (11:34→23:45)
[2017-03-06] MEDS: LASIX IV SCH (12:08)
[2017-03-06] MEDS: TPN ELECTROLYTES 20 ML, MAGNESIUM SULFATE 5 MEQ, POTASSIUM CHLORIDE 20 MEQ, SODIUM PHOS... IV SCH ×8 (17:50)
[2017-03-06] MEDS: LIPOSYN 20% 250 ML IV SCH (17:50)
[2017-03-06] MEDS: LOVENOX SUBQ SCH (17:51)
--- NOTE | 2017-03-06 20:59 | PROGRESS NOTE ---
DATE: 03/06/2017 SUBJECTIVE: Patient has no focal complaints. OBJECTIVE: Vital signs: Blood pressure 157/73, heart rate 113, respiratory rate 24, temperature 98.1 degrees, 92% on 4 L. Cardiovascular: Regular rate and rhythm. Pulmonary: Bilateral breath sounds. Diminished at the bases. GI: Soft, nontender, nondistended. Bowel sounds are positive. LABORATORY DATA: White count 15, hemoglobin and hematocrit 9 and 27, platelets 391,000. BUN, creatinine of 24 and 0.8. IN'S AND OUT'S: She has had about reportedly 775 out in urine output which is not a lot. PROBLEM LIST: 1. Diverticular abscesses. She is on antibiotics aztreonam and clindamycin day 11. We are continuing supportive care. Repeat CT shows no change in abscess size or certainly no worsening. We will continue treatment and follow clinically. She is a high risk surgical candidate. We will review CT scans on Wednesday with radiologist to see if there is anything amenable for CT-guided drainage. 2. Severe protein-calorie malnutrition. She is on TPN, lipids but continues to have very low albumin. She is not taking much in by mouth but she is getting TPN. 3. Volume overload. Bilateral pleural effusions. We are diuresing. She has more ascites. I am not sure if she may require paracentesis. 4. Hypothyroidism stable. DISPOSITION: Discussed that she is not progressing as we would like. Family aware. There is not really any good clinical options. Surgery at this point if she were to make it through the procedure I think her postop course would be very flavia because of her poor nutritional status. Plan will be rehab when she gets out of the hospital, possibly home IV therapy but at this point she is still not stabilizing. cc: Dave Hamlin MD
[2017-03-07] MEDS: LASIX IV SCH ×2 (00:48→12:06)
[2017-03-07] MEDS: HUMULIN R SUBQ SCH ×4 (06:01→22:36)
[2017-03-07] MEDS: SYNTHROID PO SCH (06:09)
[2017-03-07] MEDS: PRILOSEC PO SCH (06:09)
[2017-03-07] MEDS: CLINDAMYCIN 600 MG/NS 600 MG/50 ML IVPB IV SCH ×3 (06:09→22:36)
[2017-03-07] MEDS: AZACTAM 2 GM in NS 100 ML IV SCH ×2 (08:59→15:58)
[2017-03-07] MEDS: MONISTAT-7 VAG CREAM VAG SCH (10:00)
[2017-03-07] MEDS: CENTRUM SILVER PO SCH (10:02)
[2017-03-07] MEDS: CULTURELLE PO SCH ×2 (10:02→22:36)
[2017-03-07] MEDS: ICAR-C PO SCH ×2 (10:02→22:36)
[2017-03-07 12:53] LABS: HEMATOCRIT 23.8 % (37.0-47.0); HEMOGLOBIN 7.8 g/dL (12.0-16.0); MCH 24.1 PG (27-31); MCHC 32.8 g/dL (33-37); MCV 73.7 FL (81-99); RBC 3.23 XMIL (4.2-5.4)
[2017-03-07] MEDS: LOVENOX SUBQ SCH (17:29)
[2017-03-07] MEDS ORDERED: NS 500 ML ONE (18:36)
[2017-03-07] MEDS: TPN ELECTROLYTES 20 ML, MAGNESIUM SULFATE 5 MEQ, POTASSIUM CHLORIDE 20 MEQ, SODIUM PHOS... IV SCH ×8 (18:45)
[2017-03-07] MEDS: LIPOSYN 20% 250 ML IV SCH (18:45)
--- NOTE | 2017-03-07 18:52 | PROGRESS NOTE ---
DATE: 03/07/2017 SUBJECTIVE: The patient does not feel well today. She is less attentive. OBJECTIVE: Vital Signs: Blood pressure 166/76, heart rate 108, respiratory rate 20, temperature 98.2, 94% on 4 L. Cardiovascular: Regular rate and rhythm. Pulmonary: Bilateral breath sounds. Clear to auscultation. Gastrointestinal: Soft, nontender, nondistended. Bowel sounds are positive. She definitely has significant abdominal distention. LABORATORY STUDIES: Today, white count is 13, hemoglobin and hematocrit 7.8 and 23.8, platelets 391,000. PROBLEM LIST: 1. Diverticular pelvic abscesses. She is on aztreonam and clindamycin, day 12. ID is following. Surgery is following. I believe GI is following. Repeat CT scan shows stability in the level of the abscesses. Reviewed with Radiology about CT-guided drainage. They do not feel that this is safe, given the position and size of the abscesses, and the patient is a high risk surgical candidate, so we are waiting for medical management. Hopefully, this will start turning the tide. Her white count coming down is promising. However, the patient herself looks clinically worse today. 2. Severe protein-calorie malnutrition. She has been on total parenteral nutrition and lipids, and still her albumin level continues to be very low. 3. Volume overload, likely secondary to hypoalbuminemia. She is on Lasix. She has ascites. May have to consider a paracentesis. 4. Hypothyroidism. We will continue to follow. 5. Anemia. We will treat with 1 unit of packed red blood cells today, and follow clinically. DISPOSITION: Pending clinical resolution. Family is aware that she is not improving, and that may become progressively worse, but for the time being, we are going to continue on the treatment plan. cc: Dave Hamlin MD
[2017-03-08] MEDS: LASIX IV SCH ×3 (01:04→23:23)
[2017-03-08] MEDS: AZACTAM 2 GM in NS 100 ML IV SCH ×4 (01:04→23:36)
[2017-03-08] MEDS: ULTRAM PO PRN ×2 (01:04→23:23)
[2017-03-08] MEDS: ZOFRAN IV PRN ×2 (01:04→06:15)
[2017-03-08 05:55] LABS: BASO% 0.8 % (0.0-0.8); EOS# 0.28 X1000 (0.0-0.7); EOS% 2.3 % (0.0-10.0); HEMATOCRIT 27.9 % (37.0-47.0); HEMOGLOBIN 9.4 g/dL (12.0-16.0); IMM GRAN# 0.05 X1000 (0.0-0.04); IMM GRAN% 0.4 % (0.0-0.5); LYMPH# 0.93 X1000 (1.2-3.4); LYMPH% 7.7 % (20.5-51.1); MANUAL DIFF NEEDED? NO; MCH 25.1 PG (27-31); MCHC 33.7 g/dL (33-37); MCV 74.4 FL (81-99); MONO# 1.04 X1000 (0.11-0.59); MONO% 8.6 % (1.7-9.3); MPV 9.9 FL (7.4-10.4); NEUT% 80.2 % (42.2-75.2); PLT 383 X1000 (130-400); RBC 3.75 XMIL (4.2-5.4)
[2017-03-08] MEDS: SYNTHROID PO SCH (06:15)
[2017-03-08] MEDS: CLINDAMYCIN 600 MG/NS 600 MG/50 ML IVPB IV SCH ×2 (06:15→17:55)
[2017-03-08] MEDS: PRILOSEC PO SCH (06:15)
[2017-03-08 06:30] LABS: AGAP 8; ALBUMIN 1.8 g/dL (3.5-5.0); ALKALINE PHOSPHATASE 151 U/L (32-104); BUN 25 mg/dL (8-22); CALCIUM 8.3 mg/dL (8.8-10.2); CHLORIDE 99 mmol/L (98-107); COSMO 283; GOT 70 U/L (10-30); GPT 40 U/L (10-36); MAGNESIUM 2.2 mg/dL (1.5-2.7); POTASSIUM 3.8 mmol/L (3.5-5.1); PREALBUMIN 9.3 mg/dL (20-40); SODIUM 138 mmol/L (136-145); TCO2 31 mmol/L (25-35); TOTAL BILIRUBIN 0.23 mg/dL (0.20-1.00); TOTAL PROTEIN 6.5 g/dL (6.3-8.3); TRIGLYCERIDES 81 mg/dL (35-135)
[2017-03-08] MEDS: HUMULIN R SUBQ SCH ×4 (07:42→21:00)
--- NOTE | 2017-03-08 07:53 | PROGRESS NOTE ---
DATE: 03/08/2017 PRESENT ILLNESS: The patient has multiple pelvic abscesses which on CT scan has not changed. She does have, however, more ascites and a possible basilar pneumonia. MEDICATIONS: The patient is receiving clindamycin and aztreonam now for 10 days. PHYSICAL EXAMINATION: Vital Signs: Temperature is 98.1 degrees, pulse 106, respirations 16. Blood pressure 123/68. General: This is an ill-appearing, elderly female. She is in no acute distress. Cardiovascular: Heart rate is regular. Abdomen: Soft and nontender. Abdomen: Slightly distended. It is tender but the patient does not guard. Extremities: Legs edematous, but not erythematous. LAB AND X-RAY: CBC today shows the white count is down to 12,150, hemoglobin 9.4, and platelet count 383,000. Creatinine is 0.7. GFR is greater than 60. ASSESSMENT AND PLAN: The patient has abdominal abscesses. My plan is to continue antibiotics. Unfortunately radiology does not feel that they would be able to drain these abscesses percutaneously and Dr. Bradford feels that the patient would be a very poor risk for surgery and it would be best to avoid surgery. COMORBIDITIES: She is elderly. She previously has had diverticulitis and recently had hepatitis A. cc: Ivan Warner MD
[2017-03-08] MEDS: MONISTAT-7 VAG CREAM VAG SCH (08:01)
[2017-03-08] MEDS: CULTURELLE PO SCH ×2 (08:01→23:23)
[2017-03-08] MEDS: ICAR-C PO SCH ×2 (08:01→23:23)
[2017-03-08] MEDS: CENTRUM SILVER PO SCH (08:01)
[2017-03-08] MEDS ORDERED: ALBUMIN 25% IV ONE (13:00)
[2017-03-08] MEDS ORDERED: NS 500 ML ONE (13:50)
[2017-03-08] MEDS: TPN ELECTROLYTES 20 ML, MAGNESIUM SULFATE 5 MEQ, POTASSIUM CHLORIDE 20 MEQ, SODIUM PHOS... IV SCH ×8 (16:27)
[2017-03-08] MEDS: LOVENOX SUBQ SCH (16:27)
--- NOTE | 2017-03-08 17:07 | PROGRESS NOTE ---
DATE: 03/08/2017 SUBJECTIVE: Overall doing okay. Her appetite is slowly improving. OBJECTIVE: Temperature no fevers overnight 98.2, pulse 102, blood pressure 131/65, oxygen saturation 97% on 3 L nasal cannula.Abdomen: Soft, less distended and nontender. LABS: White count down to 12, hematocrit 27, creatinine 0.7, glucose 154, bilirubin is normal, AST, ALT and alkaline phosphatase mildly elevated. Albumin is low at 1.8, prealbumin is 9.3. ASSESSMENT/PLAN: Is 87-year-old female with diverticular abscesses gradually clinically she is slowly improving. Her white count 12, her exam is improving, she has no fevers. I have had multiple discussions all family members and they all agreed that they do not want abdominal operation, will treat her maximally with IV antibiotics. If she were worsen another CT scan to evaluate for collection I would be amenable percutaneous drainage although there is not 1 currently. Otherwise will continue TPN and she is passing gas and having bowel function but just not much in the way of appetite. cc: Deion Bradford MD
--- NOTE | 2017-03-08 17:47 | PROGRESS NOTE ---
DATE: 03/08/2017 SUBJECTIVE: Patient currently resting in bed. She complains of mild abdominal discomfort, abdominal distention is persistent as before. White count is coming down. She denies any fevers, rigors or chills. She was able to eat better this morning. She had 1 bowel movement yesterday. She denies any nausea, vomiting, or vomiting blood or passing blood in the stools. OBJECTIVE: Vital Signs: Temperature 98.2, pulse rate of 102, respiratory rate 20, blood pressure 137/65. Saturating 97% on 4 L nasal cannula. General: Moderately built, lying in bed, in no acute distress. HEENT: Pale conjunctiva. No icterus. Neck is supple. Abdomen: Mild distention noted. Bowel sounds are present. No guarding. No rebound. Tenderness in the infraumbilical region and left lower quadrant. Bowel sounds are present. No guarding. Extremities: No cyanosis, clubbing. Neurologic: She is awake, alert. Answers questions. LABORATORY DATA: Hemoglobin and hematocrit is 9.4 and 27.9, white count of 12.1 , platelet count of 383,000. Sodium 130, potassium 3.8, chloride 99, bicarbonate 30, anion gap of 8, BUN of 25, creatinine 0.7, glucose of 154, calcium 8.3, phosphorus 4, magnesium 2.2. Total bilirubin is 0.23, AST 70, ALT 40, alkaline phosphatase total protein 6.5, albumin of 1.8. Bilirubin of 9.3. TORI is negative. Acute hepatitis panel is positive for HAV IgM which is likely a false positive. Stool lactoferrin is positive. IMPRESSION AND PLAN: 1. Pelvic abscesses, diverticulitis currently on antibiotics. She is being followed by Dr. Ivan Warner and Dr. Carlos Bradford. 2. Cirrhosis of unclear etiology. May be burned out HOYOS. Her TORI was negative. Hepatitis panel is negative for hepatitis B and C. Mild coagulopathy with INR of 1.23. We will watch her labs and albumin. 3. Malnutrition. She will continue on TPN as before. 4. Anemia. We will start on Iron C b.i.d. and multivitamins daily. The above plan was discussed with the patient and family. cc: MD Ivan Genao MD Alexis R. Penot, MD R. Tyler Harney, MD MTDD
[2017-03-08] MEDS: BENADRYL PO PRN (17:55)
--- NOTE | 2017-03-08 18:00 | PROGRESS NOTE ---
DATE: 03/08/2017 SUBJECTIVE: The patient is resting comfortably in bed. No acute events noted overnight. The patient is still not eating very much and barely drinking the Ensure. OBJECTIVE: Vital Signs: Temperature 98 degrees, blood pressure 138/65, heart rate 102, respirations 18, O2 saturations 97% on 4 L nasal cannula. General: This is a chronically ill- appearing, elderly female, lying in bed. Head: Normocephalic, atraumatic. Heart: S1, S2. Normal. Tachycardic. Lungs: Diminished breath sounds at the bases. No crackles. No rales. Abdomen: Positive bowel sounds. Distended. Nontender. Extremities: No edema. No cyanosis. No calf tenderness. Neurologic: The patient is alert and able to move all 4 extremities. LABORATORY: White blood cell count 12, hemoglobin 9.4, hematocrit 27, platelets 383,000. Sodium 138, potassium 3.8, chloride 99, CO2 31, BUN 25, creatinine 0.7, glucose 149. ASSESSMENT AND PLAN: 1. Multiple pelvic abscesses. Continue on IV antibiotic therapy as directed by Dr. Warner. 2. Suspected bibasilar pneumonia. Continue with IV antibiotic therapy and bronchodilator therapy. 3. Suspected liver cirrhosis. The patient does have ascites. The patient may require a paracentesis soon. I will defer to the finish production manager. 4. Anemia. The patient's hemoglobin and hematocrit is improved after receiving a blood transfusion. We will continue to monitor the patient's hemoglobin and hematocrit closely. 5. Severe protein calorie malnutrition. The patient is on TPN which we will continue. 6. Deep vein thrombosis prophylaxis. Continue on Lovenox. 7. The plan of care was discussed with the patient's family at the bedside at this morning. cc: Brsisa Dinero MD [facility]
[2017-03-08] MEDS: LIPOSYN 20% 250 ML IV SCH (18:08)
[2017-03-09] MEDS: CLINDAMYCIN 600 MG/NS 600 MG/50 ML IVPB IV SCH ×3 (00:47→16:48)
[2017-03-09 05:42] LABS: MANUAL DIFF NEEDED? NO
[2017-03-09 05:54] LABS: BASO% 0.6 % (0.0-0.8); EOS# 0.33 X1000 (0.0-0.7); EOS% 3.2 % (0.0-10.0); HEMATOCRIT 28.3 % (37.0-47.0); IMM GRAN# 0.03 X1000 (0.0-0.04); IMM GRAN% 0.3 % (0.0-0.5); LYMPH# 0.87 X1000 (1.2-3.4); LYMPH% 8.4 % (20.5-51.1); MCH 24.6 PG (27-31); MCHC 31.8 g/dL (33-37); MCV 77.3 FL (81-99); MONO# 0.77 X1000 (0.11-0.59); MONO% 7.4 % (1.7-9.3); NEUT% 80.1 % (42.2-75.2); PLT 348 X1000 (130-400); RBC 3.66 XMIL (4.2-5.4)
[2017-03-09 05:55] LABS: INR 1.13
[2017-03-09 06:19] LABS: AGAP 6; ALBUMIN 2.4 g/dL (3.5-5.0); ALKALINE PHOSPHATASE 149 U/L (32-104); BUN 26 mg/dL (8-22); CALCIUM 8.7 mg/dL (8.8-10.2); CHLORIDE 100 mmol/L (98-107); COSMO 286; GOT 76 U/L (10-30); GPT 42 U/L (10-36); POTASSIUM 4.1 mmol/L (3.5-5.1); SODIUM 140 mmol/L (136-145); TCO2 34 mmol/L (25-35); TOTAL BILIRUBIN 0.28 mg/dL (0.20-1.00); TOTAL PROTEIN 6.6 g/dL (6.3-8.3)
[2017-03-09] MEDS: SYNTHROID PO SCH (06:57)
[2017-03-09] MEDS: HUMULIN R SUBQ SCH ×3 (06:58→15:54)
[2017-03-09] MEDS: PRILOSEC PO SCH (06:58)
[2017-03-09] MEDS: CENTRUM SILVER PO SCH (08:05)
[2017-03-09] MEDS: AZACTAM 2 GM in NS 100 ML IV SCH ×3 (08:05→22:57)
[2017-03-09] MEDS: ICAR-C PO SCH ×2 (08:05→22:57)
[2017-03-09] MEDS: CULTURELLE PO SCH ×2 (08:05→22:57)
[2017-03-09] MEDS: MONISTAT-7 VAG CREAM VAG SCH (09:55)
[2017-03-09] MEDS: LASIX IV SCH ×2 (12:00→22:57)
[2017-03-09 14:33] LABS: MAGNESIUM 2.3 mg/dL (1.5-2.7); PREALBUMIN 10.3 mg/dL (20-40)
--- NOTE | 2017-03-09 15:08 | PROGRESS NOTE ---
DATE: 03/09/2017 PRESENT ILLNESS: The patient has multiple pelvic abscesses most likely secondary to her diverticulitis. MEDICATIONS: This is day 11 of treatment with a with a combination of clindamycin and aztreonam. PHYSICAL EXAMINATION: Vital Signs: Temperature is 99.1 degrees, pulse 89, respirations 20, blood pressure 121/50. Generally: This is an ill-appearing, elderly female. She is in no acute distress. Unfortunately she still does not have any appetite. Lungs: Clear to auscultation. Cardiovascular: Heart rate is regular. Abdomen: Soft. It does seem distended and it is minimally tender. Extremities: The patient's legs are edematous but not erythematous. LAB AND X-RAY: CBC today shows the white count has normalized at 10,410, hemoglobin 9, platelet count 348,000. Creatinine is 0.7. GFR is greater than 60. The AST is 76, the alkaline phosphatase is 149. ASSESSMENT AND PLAN: Patient has multiple pelvic abscesses. The plan is to continue antibiotics. At this time it does not appear that the abscesses can be drained percutaneously and it seems that the patient would be extremely poor risk for surgery. COMORBIDITIES: Include she is elderly, she has had diverticulitis and most recently hepatitis A. cc: Ivan Warner MD
[2017-03-09] MEDS: TPN ELECTROLYTES 20 ML, MAGNESIUM SULFATE 5 MEQ, POTASSIUM CHLORIDE 20 MEQ, SODIUM PHOS... IV SCH ×8 (16:27)
[2017-03-09] MEDS: LIPOSYN 20% 250 ML IV SCH ×2 (16:27→19:23)
[2017-03-09] MEDS: LOVENOX SUBQ SCH (16:48)
[2017-03-09] MEDS: ULTRAM PO PRN ×2 (16:51→22:57)
--- NOTE | 2017-03-09 16:59 | PROGRESS NOTE ---
DATE: 03/09/2017 SUBJECTIVE: The patient is resting comfortably in bed. She is more awake and alert today. OBJECTIVE: Vital Signs: Temperature 98.9 degrees, blood pressure 139/52, heart rate 102, respirations 18, O2 saturations 97% on 4 L nasal cannula. General: This is an elderly, chronically ill-appearing female, lying in bed, in no acute distress. Head: Normocephalic, atraumatic. Heart: S1, S2 normal, tachycardic. Lungs: Clear to auscultation bilaterally. Abdomen: Positive bowel sounds. Positive for ascites. Nontender, nondistended. Extremities: + 1 edema. No cyanosis. No calf tenderness. Neurological: Patient is alert and oriented x3. LABS: White blood cell count 10, hemoglobin 9, hematocrit 28, platelets 348,000, INR 1.1. Sodium 140, potassium 4.1, chloride 100, CO2 34, BUN 26, creatinine 0.7, glucose 139. AST 76, ALT 42, alkaline phosphatase 149. ASSESSMENT AND PLAN: 1. Multiple pelvic abscesses. Continue on IV antibiotic therapy as directed by Dr. Warner. 2. Bibasilar pneumonia. Continue on antibiotic therapy. 3. Liver cirrhosis. Aware. 4. Ascites. Unchanged. 5. Anemia of chronic disease. We will continue to monitor the patient's hemoglobin and hematocrit and transfuse p.r.n. 6. Severe protein calorie malnutrition. Continue on total parenteral nutrition. 7. Deep vein thrombosis prophylaxis. Continue on Lovenox. cc: Brissa Dinero MD
[2017-03-09] MEDS: BENADRYL PO PRN (22:57)
[2017-03-09] MEDS: ZOFRAN IV PRN (22:57)
[2017-03-10] MEDS: AZACTAM 2 GM in NS 100 ML IV SCH ×3 (01:25→15:22)
[2017-03-10] MEDS: HUMULIN R SUBQ SCH ×5 (01:26→20:49)
[2017-03-10] MEDS: CLINDAMYCIN 600 MG/NS 600 MG/50 ML IVPB IV SCH ×3 (01:35→17:27)
[2017-03-10 05:44] LABS: MANUAL DIFF NEEDED? NO
[2017-03-10 06:04] LABS: INR 1.15; PROTIME 12.2 Seconds (9.2-11.7)
[2017-03-10 07:35] LABS: BASO% 0.7 % (0.0-0.8); EOS# 0.39 X1000 (0.0-0.7); EOS% 3.5 % (0.0-10.0); HEMATOCRIT 29.9 % (37.0-47.0); HEMOGLOBIN 8.7 g/dL (12.0-16.0); IMM GRAN# 0.05 X1000 (0.0-0.04); IMM GRAN% 0.4 % (0.0-0.5); LYMPH# 0.91 X1000 (1.2-3.4); LYMPH% 8.1 % (20.5-51.1); MCH 25.7 PG (27-31); MCHC 29.1 g/dL (33-37); MCV 88.2 FL (81-99); MONO# 1.15 X1000 (0.11-0.59); MONO% 10.3 % (1.7-9.3); MPV 10.6 FL (7.4-10.4); PLT 351 X1000 (130-400); RBC 3.39 XMIL (4.2-5.4)
[2017-03-10] MEDS: SYNTHROID PO SCH (08:39)
[2017-03-10] MEDS: PRILOSEC PO SCH (08:39)
--- NOTE | 2017-03-10 08:45 | PROGRESS NOTE ---
DATE: 03/10/2017 PRESENT ILLNESS: The patient has multiple pelvic abscesses, most likely secondary to diverticulitis. MEDICATIONS: This is day 12 of treatment with the combination of clindamycin and aztreonam. PHYSICAL EXAMINATION: Vital Signs: Temperature is 97.9 degrees, pulse 99, respirations 18, blood pressure 134/60. General: This is a lethargic, elderly female. She is in no acute distress. She was up most of the night, and that is probably why she is lethargic now. Lungs: Clear to auscultation. Cardiovascular: Regular heart rate. Abdomen: Distended, soft, and nontender. IMAGING AND LABORATORY DATA: The patient's CBC shows a white count of 11,190, hemoglobin 8.7, and platelet count 351,000. There is no BMP today. There are no new cultures on the patient. There is no radiographic study that has been done today. ASSESSMENT AND PLAN: The patient has pelvic abscesses. The plan right now is to treat them medically with clindamycin and aztreonam. The patient's comorbidities include the following. She is elderly. She has had diverticulitis, which was probably the cause of her pelvic abscesses. The patient has cirrhosis of the liver, and recently she had hepatitis A. cc: Ivna Warner MD
[2017-03-10] MEDS: CULTURELLE PO SCH (09:12)
[2017-03-10] MEDS: ICAR-C PO SCH ×2 (09:13→20:45)
[2017-03-10] MEDS: CENTRUM SILVER PO SCH (09:13)
[2017-03-10 09:19] LABS: CALCIUM 8.6 mg/dL (8.8-10.2); MAGNESIUM 2.3 mg/dL (1.5-2.7); POTASSIUM 3.8 mmol/L (3.5-5.1)
[2017-03-10] MEDS ORDERED: DULCOLAX PO ONE (11:59)
[2017-03-10] MEDS: LASIX IV SCH (13:29)
[2017-03-10] MEDS: LACTULOSE PO SCH ×2 (13:30→20:45)
[2017-03-10] MEDS: LOVENOX SUBQ SCH (15:23)
[2017-03-10] MEDS: MONISTAT-7 VAG CREAM VAG SCH (15:24)
--- NOTE | 2017-03-10 15:25 | PROGRESS NOTE ---
DATE: 03/10/2017 SUBJECTIVE: Patient is currently resting in bed. She got Benadryl which made her a little sleepy. Her daughter is present at bedside. No documented fevers, rigors, or chills. No documented nausea or vomiting. The patient was able to eat 50% of the meal this morning. She had 1 soft, brown, liquid stool today. No blood was reported in the stools. OBJECTIVE: Vital signs: Temperature 98.3, pulse rate of 100, respiratory rate of 20, blood pressure 125/54, saturating 92% on 4 L nasal cannula. General Appearance: Moderately built, moderately nourished, lying in bed, currently sleeping. HEENT: Pale conjunctivae. No icterus. Neck: Supple. Abdomen: Protuberant, soft. Mild distention noted. Bowel sounds are present. No guarding. Extremities: No cyanosis, clubbing. Neurologic: She was sleeping at the moment. LABS: Hemoglobin and hematocrit are 8.7 and 29.9, white count 11.1, platelet count of 351,000, MCV of 88.2. PT of 12.2, INR 1.15. Sodium 139, potassium 3.8, chloride 100, bicarb 24, anion gap of 5, BUN of 31, creatinine 0.9, glucose of 135, calcium is 8.6, phosphorus 4.2 , magnesium 2.3. AST 76, ALT 42, alkaline phosphatase 149, total protein 6.6, albumin of 2.4, prealbumin 10.3. IMPRESSION AND PLAN: 1. Pelvic abscesses secondary to diverticulitis. Continue on antibiotic treatment with clindamycin and aztreonam per Dr. Warner. White count has improved. 2. Malnutrition. Patient is on TPN. She is also trying to improve her oral intake. Her albumin is improving. 3. Bibasilar pneumonia. Currently on antibiotics. 4. Liver cirrhosis of unclear etiology. Negative hepatitis panel. Negative TORI. Will continue to follow the liver enzymes and avoid hepatotoxic drugs. 5. Anemia of chronic disease. Continue to follow the labs and we will continue on Iron C b.i.d. and multivitamins once daily. 6. Gastrointestinal prophylaxis. Prilosec once daily. 7. She was initiated on lactulose 30 mL p.o. b.i.d. for constipation and also given 1 dose of Dulcolax today. 8. Ascites. Will keep her on a low-sodium diet. Na<2g in 24 hours. This could be secondary to a combination of a pelvic abscesses and liver cirrhosis. We will obtain ultrasound of the abdomen to evaluate for liver cirrhosis, portal hypertension, ascites. 9. Further recommendations pending hospital course. cc: MD Brissa Genao MD Kirk L. Jackson, MD Leroy F. Harris, MD R. Tyler Harney, MD MTDD
--- NOTE | 2017-03-10 16:49 | PROGRESS NOTE ---
DATE: 02/23/2017 SUBJECTIVE: Patient complaining of nausea and upset stomach. She was beginning to chew her sheets to get rid of the nausea. OBJECTIVE: Vital Signs: Temperature 97.6 degrees, blood pressure 140/53, heart rate 83, respirations 18, O2 saturation 94%. General: An elderly lady seen laying in bed, no acute distress. HEENT: No scleral icterus. Conjunctival pallor present. Neck: Supple. Trachea midline. Heart: Normal first and second heart sounds. Lungs: Clear. Abdomen: Soft, tender in the lower abdomen. Extremities: No edema or cyanosis. Neurological: Alert and oriented. LABORATORY DATA: White count 26, H and H 8.9 and 27, platelets 324. Creatinine 1.1. LFTs are normal. Albumin is quite low at 1.7. IMPRESSION AND PLAN: 1. Diverticular abscess with persistent leukocytosis. She is currently on intravenous antibiotics. Dr. Warner is also consulted to provide additional recommendations and Dr. Carlos Bradford is following. 2. Leukocytosis. Continue the antibiotics and follow the recommendation of Dr. Warner. 3. Hypertension. 4. Hypothyroidism. 5. Iron deficiency anemia. 6. Deep vein thrombosis prophylaxis. 7. Nutritional support with Clinimix and lipids. cc: Tamy Vergara MD
--- NOTE | 2017-03-10 17:48 | PROGRESS NOTE ---
DATE: 02/26/2017 SUBJECTIVE: Patient had a restless night. She was unable to sleep and feeling drowsy during the daytime. OBJECTIVE: Vital signs: Temp 98 degrees, blood pressure 140/70, heart rate 93, respiration 18, O2 saturation 98% on 2 L. General: Elderly lady in no acute specific distress. HEENT: Conjunctival pallor present. No scleral icterus. Heart: Normal first and second heart sounds. Lungs: Clear. Abdomen: Soft. Tender on deep palpation in both lower quadrants. Extremities: No cyanosis, clubbing. Neurological: Alert and oriented. LABS: White count is down to 19, hematocrit 27. Albumin is again down to 1.6. IMPRESSIONS AND PLAN: 1. Multiple small pelvic abscesses. Continue the antibiotics. Followed by Dr. Carlos Bradford and Dr. Warner. 2. Leukocytosis is improving. 3. Iron deficiency. On supplements. 4. Severe protein calorie malnutrition. Continue Clinimix. She is getting Ensure now. 5. Deep vein thrombosis prophylaxis. She is on Lovenox. So far there is no sign of any active bleeding. 6. Gastrointestinal prophylaxis to be continued. cc: Tamy Vergara MD
--- NOTE | 2017-03-10 17:49 | PROGRESS NOTE ---
DATE: 03/09/2017 SUBJECTIVE: Patient is more awake and alert. Her daughter is at bedside. She says that she is feeling better. OBJECTIVE: Vital signs: Temperature 98.9 degrees, blood pressure 130/52, heart rate 100, respirations 18, O2 saturation 97% on 4 L. General: Chronically-ill, malnourished lady, in no acute distress. HEENT: Conjunctival pallor present. Neck: Supple. Heart: Normal first and second heart sounds. Lungs: Clear. Abdomen: Bowel sounds are present. She is a little distended and positive for ascites. Extremities: Slight edema. Neurological: Alert and oriented. LABORATORY DATA: White count is down to 10, hemoglobin and hematocrit are stable at 9 and 28 after a unit of transfusion. Electrolytes are normal. IMPRESSIONS AND PLAN: 1. Multiple pelvic abscesses. Continue IV antibiotic therapy as directed by Dr. Warner. Dr. Carlos Bradford is following. Radiologists are following, as well as a GI. I think she may be turning the corner with antibiotics alone. 2. Atelectasis versus bibasilar pneumonia and mild pleural effusion. Probably related to volume overload. Patient is on antibiotics. 3. Ascites, unchanged. 4. Anemia. Continue hemoglobin and hematocrit. No signs of GI bleeding. 5. Continue gastrointestinal prophylaxis. 6. Severe protein calorie malnutrition. Continue parenteral nutrition. 7. Deep vein thrombosis prophylaxis. We are continuing the Lovenox because there are no signs of bleeding. Some of the decrease in hematocrit may be due to volume overload. We will follow. -1 cc: Tamy Vergara MD
--- NOTE | 2017-03-10 17:49 | PROGRESS NOTE ---
DATE: 03/07/2017 SUBJECTIVE: Again, patient feels weak. Did not sleep well last night. OBJECTIVE: Vital signs: Blood pressure 160/76, heart rate 100, respiratory rate 20, temp 98.2 degrees, 94% on 4 L. Heart: Normal first and second heart sounds. Lungs: Clear. Abdomen: Nondistended and nontender. Bowel sounds are present. The distention is a little bit worsening according to the patient but considering a scaphoid abdomen , I did not see any significant distention. Neurologic: No focal neurological deficit. LABORATORY DATA: White count is down to 13, hemoglobin and hematocrit is down to 7.8 and platelet count 391,000. IMPRESSIONS AND PLAN: 1. Pelvic abscess secondary to diverticulitis. The discussion has been made with the radiologist about CT-guided, who felt because of the location and size of the abscess and because of her poor medical condition and a surgical risk they do not want to enter into any complications. 2. Severe protein calorie malnutrition. Continue TPN and try to improve the albumin. 3. Volume overload. Has been treated with Lasix. She also has developed some ascites. 4. Hypothyroidism. 5. Anemia. Patient has shown no signs of GI bleed. However, the patient is getting 1 unit of packed red cells. May have to hold Lovenox if she shows any signs of GI bleed. We will continue to follow. Patient needs to continue GI prophylaxis. -9 cc: Tamy Vergara MD MTDD
--- NOTE | 2017-03-10 17:49 | PROGRESS NOTE ---
DATE: 03/06/2017 SUBJECTIVE: Patient has no focal complaints today. She is feeling better. OBJECTIVE: Vital signs: Blood pressure 150/73, heart rate 113, respiratory 24, temperature 98 degrees, O2 saturation 92% on 4 L. HEENT: Conjunctival pallor present. Neck: Supple. Heart: Normal first and second heart sounds. Lungs: Clear. Abdomen: Distention is better. Softer. Bowel sounds were present. The tenderness may be a little better as well. LABORATORY DATA: White count is 15, hemoglobin and hematocrit are stable. IMPRESSIONS AND PLAN: 1. Diverticular abscess, on antibiotic. There is still a debate going on whether or not to drain these on Wednesday with CT-guided aspiration. 2. Severe protein calorie malnutrition. On TPN and lipids. She is also taking a little bit of Ensure but not much because she says it is getting her bloated. 3. Volume overload, being corrected. 4. Hypothyroid, stable. 5. Iron-deficiency anemia. Stable on supplements. 6. Deep vein thrombosis prophylaxis. On Lovenox. 7. Gastrointestinal prophylaxis. Patient is very slowly progressing. Hopefully on Wednesday a decision can be made about CT-guided aspiration. -5 cc: Tamy Vergara MD
--- NOTE | 2017-03-10 17:49 | PROGRESS NOTE ---
DATE: 03/02/2017 SUBJECTIVE: The patient is not feeling well. She says she feels bloated. The abdomen feels distended and has some shortness of breath. OBJECTIVE: Vital signs: Heart rate in the 100s, respiratory rate 22, blood pressure 180/79, temperature of 98.9 degrees, O2 saturation 92% on 2 L. HEENT: Conjunctival pallor. Neck: Supple. Trachea midline. Heart: Tachycardic. Lungs: Decreased breath sounds in the bases. GI: Slightly distended abdomen but no rebound, guarding, or rigidity. Mild tenderness in both lower quadrants. LABORATORY DATA: Hemoglobin and hematocrit are stable, white count is 15,000. IMPRESSIONS AND PLAN: 1. Diverticular abscess. She is on clindamycin and aztreonam. 2. Severe protein calorie malnutrition. On TPN. 3. Anemia, stable. 4. Insomnia. Getting better. 5. Mild tachycardia and shortness of breath. Dr. Hamlin is looking at the volume status and may give her some diuretics. 6. She is on Lovenox. Will continue gastrointestinal prophylaxis. -3 cc: Tamy Vergara MD
--- NOTE | 2017-03-10 17:49 | PROGRESS NOTE ---
DATE: 03/05/2017 SUBJECTIVE: Patient is feeling a little better. No specific complaints. Her daughter is at bedside. She is encouraging her to drink some of the Ensure. OBJECTIVE: Vital Signs: Blood pressure 140/60, heart rate 100, respirations 22, temperature 98.4 degrees, 98% on 4 L. Heart: Slightly tachycardic but regular. Lungs: Bilateral breath sounds. GI: Soft, nontender. Bowel sounds present. There is still some distention and discomfort on deep palpation in the lower quadrants. IMPRESSIONS AND PLAN: 1. Multiple small pelvic abscesses, likely related to diverticulitis. On broad-spectrum antibiotics. She had a repeat CT which did not show any significant change. There is a discussion going on about CT-guided drainage. Dr. Carlos Bradford has been following. He is hesitant to do open drainage because of her severe hypoalbuminemia and protein calorie malnutrition. 2. Volume overload. Being treated with diuretics. 3. Hypothyroidism. 4. Deep vein thrombosis prophylaxis. On Lovenox. 5. Anemia, stable. 6. Gastrointestinal prophylaxis. We will continue to follow. She has not turned the corner but hopefully with continued antibiotics a decision will be made whether or not to do a CT-guided aspiration biopsy or surgical drainage. -5 cc: Tamy Vergara MD
[2017-03-10] MEDS: TPN ELECTROLYTES 20 ML, MAGNESIUM SULFATE 5 MEQ, POTASSIUM CHLORIDE 20 MEQ, SODIUM PHOS... IV SCH ×8 (18:20)
[2017-03-10] MEDS: LIPOSYN 20% 250 ML IV SCH (18:25)
--- NOTE | 2017-03-10 19:06 | PROGRESS NOTE ---
DATE: 03/10/2017 SUBJECTIVE: The patient is resting comfortably in bed. no acute events noted overnight. The patient reports that she is constipated. OBJECTIVE: Vital Signs: Temperature 98.5 degrees, blood pressure 132/62, heart rate 107, respirations 20 O2 saturations 95% on 4 L nasal cannula. General: This is an elderly chronically ill-appearing female, lying in bed, in no acute distress. Head: Normocephalic, atraumatic. Heart: S1, S2. Normal. Tachycardic. Lungs: Equal air entry bilaterally. No crackles. No rales. Abdomen: Positive bowel sounds. Soft, nontender, nondistended. Extremities: Plus 1 edema. No cyanosis. No calf tenderness. Neurologic: The patient is alert and oriented x3. LABS: White blood cell count 11, hemoglobin 8.7, hematocrit 29, platelets 351, 000. INR 1.15. Sodium 139, potassium 3.8, chloride 100, CO2 34, BUN 31, creatinine 0.9, glucose 135. ASSESSMENT AND PLAN: 1. Multiple pelvic abscesses. Continue with the current IV antibiotic regimen as directed by Dr. Warner. 2. Volume overload. Continue on IV Lasix plus albumin infusions. 3. Liver cirrhosis. Aware. Gastroenterology has ordered an abdominal ultrasound to further assess the degree of cirrhosis. 4. Bibasilar pneumonia. Continue on antibiotic therapy. 5. Ascites. We will continue to monitor. 6. Anemia of chronic disease. The patient's hemoglobin and hematocrit is slightly lower today. We will continue to monitor closely. We will transfuse p.r.n. 7. Severe protein calorie malnutrition. Continue on total parenteral nutrition. 8. Deep vein thrombosis prophylaxis. Continue on Lovenox. cc: Brissa Dinero MD [facility]
[2017-03-10] MEDS: ALBUMIN 25% IV SCH (20:43)
[2017-03-10] MEDS: ULTRAM PO PRN (20:45)
[2017-03-10] MEDS: ZOFRAN IV PRN (20:45)
[2017-03-10] MEDS: BENADRYL PO PRN (20:45)
[2017-03-11] MEDS: AZACTAM 2 GM in NS 100 ML IV SCH ×3 (00:48→16:51)
[2017-03-11] MEDS: LASIX IV SCH (00:48)
[2017-03-11] MEDS: CLINDAMYCIN 600 MG/NS 600 MG/50 ML IVPB IV SCH ×4 (02:23→18:02)
[2017-03-11] MEDS: CULTURELLE PO SCH ×4 (02:40→21:08)
[2017-03-11 05:53] LABS: INR 1.18; PROTIME 12.5 Seconds (9.2-11.7)
[2017-03-11 06:03] LABS: ALBUMIN 2.7 g/dL (3.5-5.0); DIRECT BILIRUBIN 0.2 mg/dL (0.00-0.20); TOTAL BILIRUBIN 0.25 mg/dL (0.20-1.00); TOTAL PROTEIN 6.1 g/dL (6.3-8.3)
[2017-03-11] MEDS: HUMULIN R SUBQ SCH ×4 (06:57→20:55)
[2017-03-11] MEDS: PRILOSEC PO SCH (06:57)
[2017-03-11] MEDS: SYNTHROID PO SCH (06:58)
--- NOTE | 2017-03-11 07:36 | Diag Imaging Result Doc PS360 ---
EXAM: CHEST-PORTABLE HISTORY: dyspnea TECHNIQUE: Portable AP COMPARISON: 03/03/2017 FINDINGS: Poor inspiratory effort. There are moderate-sized bilateral pleural effusions. No change in the right-sided PICC line. There are bilateral infiltrates and atelectasis. Heart is not enlarged. Overall findings appear slightly more pronounced than on the prior exam. IMPRESSION: Mild interval worsening. Electronically signed by Tj Ivy 03/11/2017 7:34 AM
[2017-03-11 07:53] LABS: CALCIUM 8.4 mg/dL (8.8-10.2); MAGNESIUM 2.2 mg/dL (1.5-2.7); POTASSIUM 3.8 mmol/L (3.5-5.1)
[2017-03-11] MEDS ORDERED: LASIX IV ONE ×2 (08:57→21:35)
[2017-03-11] MEDS: MONISTAT-7 VAG CREAM VAG SCH (09:09)
[2017-03-11] MEDS: ICAR-C PO SCH ×2 (09:12→21:08)
[2017-03-11] MEDS: CENTRUM SILVER PO SCH (09:12)
[2017-03-11] MEDS: LACTULOSE PO SCH ×2 (09:13→21:07)
[2017-03-11 09:17] LABS: ALLEN TEST YES; BE 10.1 mmoll (-3.0-3.0); BLOOD TYPE ARTERIAL; DRAW SITE L RADIAL; METHB 1.3 % (0.0-1.5); O2(CT) 11.5 mL/dL (15.0-23.0); PO2(98.6) 56 mmHg (60-100); SAMPLE BLOOD; SAO2 94.7 % (95.0-100.0); THB 8.9 g/dL (11.5-17.4); pH(98.6) 7.41 (7.35-7.45)
[2017-03-11 09:22] LABS: MODALITY VENTIMASK; PCO2(98.6) 57 mmHg (35-45)
[2017-03-11] MEDS: CALMOSEPTINE OINTMENT TOP PRN ×3 (10:04→19:13)
--- NOTE | 2017-03-11 12:07 | Diag Imaging Result Doc PS360 ---
EXAM: US ABDOMEN-COMPLETE INDICATION: Abdominal distension COMPARISON: None. FINDINGS: There is significant ascites. The gallbladder wall is mildly thickened measuring up to 4 mm. However, this is probably due to the surrounding ascites. No shadowing gallstones are identified. The common bile duct is normal in diameter. Sonographic Arnold's sign was reported to be negative. The liver is enlarged measuring up to 19.9 cm and it exhibits a very nodular contour consistent with cirrhosis. No discrete hepatic mass is identified. Portal venous flow is hepatopedal. The pancreas appears to be obscured. Most of the aorta and IVC are obscured. The visualized portions are unremarkable. The spleen is mildly prominent measuring up to 13.8 cm in the greatest dimension. There are a few tiny simple appearing renal cysts bilaterally. The kidneys are grossly unremarkable, otherwise. There is an incidental left pleural effusion. IMPRESSION: 1.Ascites. 2.Cirrhotic liver. 3.Mild splenomegaly. 4.Left pleural effusion. Electronically signed by Ever Deng 03/11/2017 12:05 PM
[2017-03-11] MEDS: ALBUMIN 25% IV SCH (12:16)
--- NOTE | 2017-03-11 13:44 | PROGRESS NOTE ---
DATE: 03/11/2017 SUBJECTIVE: Patient had hypoxemia this morning. She became tachycardic. She was then put on non- rebreather 100% and she was transferred to ICU bed 16. She has family there. I spoke to the family. No nausea, vomiting, reported before. She had 1 soft liquid brown stool today. No fevers reported per the notes. She had ultrasound done in the ICU which showed increasing ascites and cirrhotic liver, splenomegaly.Vital Signs: Temperature is 98.9 degrees, pulse rate of 119, respiratory rate of 15, blood pressure 134/69, saturating 90% on non-rebreather 100% FiO2. Body weight of 158 pounds 14 ounces. General Appearance: Moderately nourished, lying in bed, with a mask. HEENT: Mild pallor. No icterus. Face mask noted. Neck: Is supple. Abdomen: Is distended. Positive ascites. No guarding. No rebound. Mild discomfort in lower abdomen. Bowel sounds present. Extremities: No cyanosis, clubbing. Neurologic: She is currently not able to answer any questions with a face mask. LABS: Hemoglobin and hematocrit is 8.7 and 29.9, white count 1.1, platelet count of 351,000. INR of 1.1, and PT of 12.5. ABG showing pH of 7.4, pCO2 57, PO2 56. Lactate of 0.8, FiO2 40%. Sodium 142, potassium 3.8, chloride 100, bicarb 32, anion gap of 8, BUN of 31, creatinine 0.9, glucose of 145. Calcium is 8.4, AST 117, ALT 54, alkaline phosphatase is 160. Total protein 6.1, albumin of 2.7. IMPRESSION AND PLAN: 1. Pelvic abscesses and diverticulitis currently on antibiotics per Dr. Warner. Not a surgical candidate per Dr. Bradford. 2. Hypoxemia and respiratory failure new onset. Dr. Coleman has been consulted. We need to evaluate for pulmonary embolism versus atelectasis versus pneumonia. 3. Worsening ascites. We will schedule patient for ultrasound-guided paracentesis once stabilized. We will send the fluid for studies to evaluate for spontaneous bacterial peritonitis although she has pelvic abscess disease on antibiotics. The fluid cultures will help identify if there is any kind of bacterial seeding secondary to the abscesses. 4. Anemia. I will continue to watch. Keep her on Iron C b.i.d. and multivitamins once a day. 5. Constipation and ileus. She is on lactulose and Dulcolax. 6. Cirrhosis of unclear etiology. We will check antimitochondrial antibody. 7. Bibasilar pneumonia and being managed per the primary care team. 8. Protein caloric malnutrition. Continue TPN. 9. The patient's prognosis is guarded at this time. She had new onset hypoxemia so I discussed the above plan in detail with the patient's family and all questions answered. cc: MD Brissa Genao MD Mamoun I. Najjar, MD Leroy F. Harris, MD
--- NOTE | 2017-03-11 13:54 | CONSULTATION ---
DATE OF CONSULTATION: 03/11/2017 REFERRING PHYSICIAN: Brissa Dinero MD TYPE OF CONSULTATION: Pulmonary consultation. CHIEF COMPLAINT: Evaluation for shortness of breath, respiratory distress, pleural effusion in the settings of sepsis, diverticular abscess, and ascites. HISTORY OF PRESENTING ILLNESS: This is an 87-year-old female who was admitted in the hospital on 02/21/2017 for diarrhea. During her course, she was diagnosed with diverticulitis or diverticular abscess. GI and Surgery are seeing her, and ID is seeing her too. She is on antibiotics. During her course, she developed a pleural effusion, ascites, some oxygen desaturation, tolerating nasal cannula, today was escalated to a mask; however, her blood gases earlier were relatively satisfactory at nasal cannula. 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 PAST SURGICAL HISTORY: Goiter removal, partial thyroidectomy, skin cancer removal, right hip replacement, complete hysterectomy, and cataract surgery. SOCIAL HISTORY: Ex-smoker. Lives with her daughter. FAMILY HISTORY: Hypertension, coronary artery disease. ALLERGIES: Possible to penicillin and aspirin. MEDICATIONS: Her medications at home and in the hospital were reviewed. In the hospital they include the following: Aztreonam, clindamycin. Today she received albumin, and there is a daily dosing. I am going to stop that. Benadryl, Lovenox, insulin, lactulose, Synthroid, Centrum, Zyprexa, Prilosec, Lovenox for DVT prophylaxis. PHYSICAL EXAMINATION: General: She is awake, lethargic, in bed. Family at the bedside. Vital Signs: Noted. Head and Neck: Examined. Trachea midline. Chest: Reduced entry at the bases. Cardiac: S1 and S2. Abdomen: Nontender with diminished bowel sounds, distended slightly. Extremities: Lower limb examination, +1 pedal edema. Neurological: Lethargic, awake. LABORATORIES AND INVESTIGATIONS: CBC, CMP, ABG, chest x-ray, abdomen CT scan were all reviewed. Input of physicians, including Dr. Vergara, Dr. Bae, Dr. Dinero, and Dr. Warner from [facility] were also reviewed. ASSESSMENT AND PLAN: 1. An 87-year-old female with sepsis secondary to diverticulitis or diverticular abscess, and that is being handled by the medical team, Infectious Disease, Gastrointestinal. 2. Ascites, pleural effusion, and shortness of breath. The pleural effusion is likely secondary to the intraabdominal process. We will proceed with thoracentesis for therapeutic and diagnostic purposes. She is planned for paracentesis. Continue with current antibiotic regimen. Thank you for the courtesy of this consultation. cc: Ino Coleman MD
--- NOTE | 2017-03-11 14:35 | Diag Imaging Result Doc PS360 ---
EXAM: US CHEST W/O MEDIASTINUM(LTD) INDICATION: Pleural effusion, diagnostic and therapeutic TECHNIQUE: COMPARISON: None. FINDINGS: Note that this was originally ordered as a thoracentesis. However, the patient was moving excessively on the preprocedural scan. There were bilateral pleural effusions. However, it was felt there was not a large enough pocket of fluid on either side to safely perform this procedure with the patient moving excessively. As such, the thoracentesis was deferred. The amount of pleural fluid appears to be much more on a recent plain radiograph dated 03/11/2017, especially on the right. The small pockets of fluid seen on this ultrasound may be due to the way that the fluid with layering. If the patient is able to remain still during the procedure, this could be reattempted. There could be a better chance of success after a scheduled paracentesis tomorrow which should make the patient more comfortable. IMPRESSION: Bilateral effusions as described. Please see above discussion. Electronically signed by Ever Deng 03/11/2017 2:32 PM
[2017-03-11] MEDS: LOVENOX SUBQ SCH (16:01)
--- NOTE | 2017-03-11 16:40 | PROGRESS NOTE ---
DATE: 03/11/2017 PRESENT ILLNESS: The patient has multiple pelvic abscesses, most likely secondary to diverticulitis. In addition, she has cirrhosis of the liver with marked ascites. MEDICATIONS: This is day 13 of treatment with the combination of clindamycin and aztreonam. PHYSICAL EXAMINATION: Vital Signs: Temperature is 98.9 degrees, pulse 119, respirations 15, blood pressure 134/69. General: This is a very ill-appearing elderly female. She is in no acute distress. She was moved to ICU because she became hypoxemic. Lungs: Clear to auscultation. Cardiovascular: Heart rate is regular. Abdomen: Distended, but soft. LABORATORY AND X-RAY STUDIES: The patient's CBC shows a white count of 11,198, hemoglobin 8.7, and platelet count 351,000. Blood gases show a pH of 7.41, a PO2 of 56, a pCO2 of 57. Abdominal ultrasound shows cirrhosis of the liver, ascites and splenomegaly. ASSESSMENT AND PLAN: 1. The patient has pelvic abscesses. I plan to continue with her current antibiotics. 2. She has unfortunately severe comorbidities in that she is very elderly. She is somewhat malnourished now, she has diverticulitis and cirrhosis of the liver with recent hepatitis A on top of the cirrhosis. cc: Ivan Warner MD
[2017-03-11] MEDS: PROTONIX IV SCH (17:24)
[2017-03-11] MEDS: SODIUM CHLORIDE 0.9% INJ SCH (17:24)
--- NOTE | 2017-03-11 17:36 | PROGRESS NOTE ---
DATE: 03/11/2017 SUBJECTIVE: Transferred to the ICU for respiratory distress, felt to be volume overload. OBJECTIVE: Vital Signs: Temperature is 97.9, pulse 94, blood pressure 138/94, oxygen saturation is low 90s on 100% nonrebreather. She has had no fevers overnight. She does have some low-grade tachycardia. General: She is alert, conversant on nonrebreather. Abdomen: Distended, not really tympanic, and no peritonitis. Soft. DIAGNOSTIC DATA: White count has normalized; it was 10 on 03/09/2017 and 11 on 03/10/2017. ABG 7.41, 57, 56, 32. Creatinine 0.9. Glucose 145. AST and ALT are 117 and 54, alkaline phosphatase 160. She had an abdominal ultrasound that showed ascites, cirrhotic liver, splenomegaly, and a left pleural effusion. ASSESSMENT AND PLAN: This is an 87-year-old female with pelvic abscess, likely related to diverticulitis. She has numerous comorbidities including cirrhosis, malnutrition, heart failure, hypoalbuminemia. She has these abscesses, and clinically, she seems to be doing okay. She has no more fevers. Her white count is now normalized. I still feel as though her mortality with an operation would be near 100%, and I think treating her medically is the best course of action at this point. Her prealbumin does gradually seemed to be improving with total parenteral nutrition. It is up to 10.3, and in her albumin is up to 2.7. We will continue to follow along. Dr. Warner is managing her antibiotics and the hospitalists are managing her cardiopulmonary status, which is quite poor. cc: Deion Bradford MD
--- NOTE | 2017-03-11 17:42 | PROGRESS NOTE ---
DATE: 03/11/2017 SUBJECTIVE: The patient was noted to be in respiratory distress this morning. She was noted to be tachypneic and tachycardic and she was subsequently transferred to the ICU. OBJECTIVE: Vital Signs: Temperature 99.5 degrees, blood pressure 130/60, heart rate 108, respirations 23, O2 saturations 97% on non-rebreather. General: This is a chronically ill- appearing female lying in bed, in moderate distress. Head: Normocephalic atraumatic. Heart: S1, S2 normal. Tachycardic. Lungs: Coarse breath sounds with crackles and rhonchi. Diminished breath sounds at the bases. Abdomen: Distended. Mildly tender. No rebound tenderness. Extremities: 3+ edema. No cyanosis. No calf tenderness. Neurologic: The patient is lethargic but is able to move all 4 extremities. LABS: Sodium 142, potassium 3.8, chloride 100, CO2 34, BUN 31, creatinine 0.9, glucose 145. ABG pH of 7.41, pCO2 57, PO2 56, bicarb 32. AST 117, ALT 54, alkaline phosphatase 160, albumin 2.7. Chest x-ray shows moderate size bilateral pleural effusions as well as bilateral infiltrates. ASSESSMENT AND PLAN: 1. Acute hypoxic respiratory failure. Multifactorial. The patient has bilateral pleural effusions and pulmonary edema. The patient has received 80 mg of IV Lasix. The patient will be transferred to the ICU. Bronchodilator therapy will be started and Pulmonary was consulted. The patient may require thoracentesis to improve air exchange. 2. Multiple pelvic abscesses. Unchanged. Continue on IV antibiotic therapy as directed by Dr. Ivan Warner. 3. Volume overload. Continue on IV lasix. 4. Bilateral pleural effusions. Monitor closely. 5. Liver cirrhosis with ascites. The patient is scheduled to undergo a paracentesis tomorrow. GI is following. 6. Hypothyroidism. Continue on Synthroid. 7. Anemia of chronic disease. We will continue to monitor the patient's hemoglobin and hematocrit closely. 8. Severe protein calorie malnutrition. The patient's TPN is on hold at this time. 9. DVT prophylaxis. The lovenox is on hold. The plan of care was discussed with the patient's family. cc: Brissa Dinero MD [facility]
[2017-03-11] MEDS: ULTRAM PO PRN (19:34)
--- NOTE | 2017-03-11 20:58 | Diag Imaging Result Doc PS360 ---
CT THORAX W/O CONTRAST - 03/11/2017 INDICATION: Dyspnea/pulmonary edema TECHNIQUE: A CT dose reduction protocol was used. COMPARISON: Previous chest x-rays FINDINGS: There is a right-sided PICC line in good position. Lung volumes are critically low. There are small to moderate pleural effusions right greater than left. There is significant central collapse of the lungs, with complete collapse of the lower lobes bilaterally. There is mild cardiomegaly. Major airways are grossly patent. There is moderate to large ascites. The liver is severely atrophic and nodular compatible with advanced cirrhosis. IMPRESSION: 1. Critically low lung volumes. Complete collapse of the lower lobes and significant collapse of the central lung zones. Major airways are patent. 2. Small to moderate pleural effusions bilaterally right greater than left. 3. Moderate to large ascites. 4. Cirrhosis. Electronically signed by Fabian Cruz 03/11/2017 8:56 PM
[2017-03-11] MEDS ORDERED: ALBUMIN 25% IV ONE (21:36)
[2017-03-11] MEDS ORDERED: LASIX 100 MG in NS 90 ML IV SCH ×2 (21:45→22:03)
[2017-03-12] MEDS: AZACTAM 2 GM in NS 100 ML IV SCH ×3 (00:59→16:54)
[2017-03-12] MEDS: BENADRYL PO PRN (01:37)
[2017-03-12] MEDS ORDERED: ATIVAN IM ONE (01:53)
[2017-03-12] MEDS: CLINDAMYCIN 600 MG/NS 600 MG/50 ML IVPB IV SCH ×3 (02:09→18:23)
[2017-03-12] MEDS ORDERED: LASIX 100 MG in NS 90 ML IV SCH (04:18)
[2017-03-12 04:39] LABS: ALLEN TEST YES; BLOOD TYPE ARTERIAL; DRAW SITE R RADIAL; METHB 1.1 % (0.0-1.5); O2(CT) 11.5 mL/dL (15.0-23.0); PO2(98.6) 214 mmHg (60-100); SAMPLE BLOOD; SAO2 100.6 % (95.0-100.0); pH(98.6) 7.33 (7.35-7.45)
[2017-03-12 04:40] LABS: MODALITY BI PAP
[2017-03-12 04:41] LABS: PCO2(98.6) 73 mmHg (35-45)
[2017-03-12 04:53] LABS: MANUAL DIFF NEEDED? NO
[2017-03-12 05:06] LABS: BASO% 0.6 % (0.0-0.8); EOS# 0.13 X1000 (0.0-0.7); EOS% 1.1 % (0.0-10.0); HEMATOCRIT 25.1 % (37.0-47.0); HEMOGLOBIN 7.7 g/dL (12.0-16.0); IMM GRAN# 0.05 X1000 (0.0-0.04); IMM GRAN% 0.4 % (0.0-0.5); INR 1.27; LYMPH# 0.77 X1000 (1.2-3.4); LYMPH% 6.6 % (20.5-51.1); MCH 24.9 PG (27-31); MCHC 30.7 g/dL (33-37); MCV 81.2 FL (81-99); MONO# 0.87 X1000 (0.11-0.59); MONO% 7.5 % (1.7-9.3); MPV 10.1 FL (7.4-10.4); NEUT% 83.8 % (42.2-75.2); PLT 291 X1000 (130-400); PROTIME 13.5 Seconds (9.2-11.7); RBC 3.09 XMIL (4.2-5.4)
[2017-03-12 05:16] LABS: MAGNESIUM 2.1 mg/dL (1.5-2.7)
[2017-03-12 05:32] LABS: ALBUMIN 3.3 g/dL (3.5-5.0); CALCIUM 8.8 mg/dL (8.8-10.2); DIRECT BILIRUBIN 0.2 mg/dL (0.00-0.20); POTASSIUM 3.8 mmol/L (3.5-5.1); TOTAL BILIRUBIN 0.5 mg/dL (0.20-1.00); TOTAL PROTEIN 7.1 g/dL (6.3-8.3)
[2017-03-12] MEDS: SODIUM CHLORIDE 0.9% INJ PRN (06:23)
[2017-03-12] MEDS: SYNTHROID IV SCH (06:23)
[2017-03-12] MEDS: HUMULIN R SUBQ SCH ×4 (06:27→21:00)
--- NOTE | 2017-03-12 07:34 | Diag Imaging Result Doc PS360 ---
CHEST-1 VIEW - 03/12/2017 INDICATION: SOB TECHNIQUE: COMPARISON: 03/11/2017 FINDINGS: Stable right PICC line in good position. Stable cardiomegaly and severe pulmonary vascular congestion. Stable moderate right and small left pleural effusion. Stable moderate central infiltrates bilaterally compatible with pulmonary edema. IMPRESSION: No change from prior. Electronically signed by Fabian Cruz 03/12/2017 7:31 AM
[2017-03-12] MEDS: CULTURELLE PO SCH ×2 (09:36→21:49)
[2017-03-12] MEDS: LACTULOSE PO SCH ×2 (09:36→23:45)
[2017-03-12] MEDS: CENTRUM SILVER PO SCH (09:36)
[2017-03-12] MEDS: ICAR-C PO SCH ×2 (09:36→21:49)
--- NOTE | 2017-03-12 14:07 | PROGRESS NOTE ---
DATE: 03/12/2017 SUBJECTIVE: The patient is more awake and alert today. She is on BiPAP. She does follow commands and answer questions appropriately. Her abdomen remains distended. OBJECTIVE: Vital Signs: Temperature 98.1 degrees, blood pressure 150/70, heart rate 88, respirations 18, O2 saturation 91% on 4 L nasal cannula. General: This is a chronically ill- appearing, elderly female, lying in bed, in no acute distress. Head: Normocephalic, atraumatic. Heart: S1, S2. Normal. Regular rate and rhythm. Lungs: Equal air entry bilaterally. No crackles, no rales. Abdomen: Positive bowel sounds. Firm, distended, positive for ascites. Extremities: +1 edema. No cyanosis. No calf tenderness. Neuro: Patient is awake and alert. She is able to move all 4 extremities. LABS: White blood cell count 11.6, hemoglobin 7.7, hematocrit 25, platelets 291,000, INR 1.27. Sodium 143, potassium 3.8, chloride 100, CO2 33, BUN 34, creatinine 0.9, glucose 94, albumin 3.3, AST 53, ALT 35. ASSESSMENT AND PLAN: 1. Acute hypoxemic respiratory failure. The patient was on BiPAP all night and is now on nasal cannula. We will continue to diurese the patient. The patient is scheduled to undergo a paracentesis today. Continue with bronchodilator therapy plus antibiotic therapy. Pulmonary is following. 2. Ascites secondary to liver cirrhosis. The patient will be undergoing a therapeutic paracentesis today. 3. Multiple pelvic abscesses. Continue on IV antibiotic therapy as directed by Dr. Warner. 4. Hypothyroidism. Continue on Synthroid. 5. Bilateral pleural effusions. Stable. 6. Severe protein calorie malnutrition. The patient's total parenteral nutrition is on hold at this time. If the patient is able to swallow will restart a pureed diet with Ensure. 7. Deep vein thrombosis prophylaxis. The patient's Lovenox is on hold today due to the scheduled paracentesis. 8. The plan of care was discussed with the patient's family at the bedside. cc: Brissa Dinero MD
--- NOTE | 2017-03-12 15:24 | Diag Imaging Result Doc PS360 ---
EXAM: US PARACENTESIS HISTORY: therapeutic and diagnostic TECHNIQUE: Ultrasound-guided paracentesis COMMENT: The risks and benefits the procedure were discussed with the patient's daughter who consented to the examination. Following sterile preparation the skin laterally and administration 1% lidocaine to the skin and deeper soft tissues the large of pocket of ascites seen on the right side of the patient's abdomen was punctured with the paracentesis catheter and subsequently 4.3 L of dark sofya fluid was drained. These were sent to the laboratory in their entirety. IMPRESSION: Successful ultrasound-guided paracentesis. Electronically signed by Dave Proctor 03/12/2017 3:22 PM
[2017-03-12] MEDS: MONISTAT-7 VAG CREAM VAG SCH (16:44)
[2017-03-12] MEDS: SODIUM CHLORIDE 0.9% INJ SCH (16:54)
[2017-03-12] MEDS: PROTONIX IV SCH (16:54)
[2017-03-12] MEDS: LOVENOX SUBQ SCH (16:54)
--- NOTE | 2017-03-12 17:12 | PROGRESS NOTE ---
DATE: 03/12/2017 SUBJECTIVE: Patient currently resting in bed. She is feeling better. She just came back from paracentesis of 4.3 L of dark sofya fluid was removed. The fluid studies have been sent. Patient's breathing is improved. She is able to talk was able to answer some questions. She had 1 liquid brown stool today. She denies any nausea, vomiting or vomiting blood. She denies any fevers, rigors or chills. OBJECTIVE: Vital signs: Temperature 98.1 degrees, pulse rate of 80, respiratory rate 18, blood pressure 150/70, saturating 91% on 4 L nasal cannula. General: Moderately nourished, lying in bed, in no distress. HEENT: Mild pallor. No icterus. Neck: Supple. Abdomen : Soft. Bowel sounds present. No rebound. No guarding. Extremities: No cyanosis or clubbing. Mild lower extremity edema noted. Neurologic: She is alert, awake, oriented. LAB: Her hemoglobin and hematocrit is 7.7 and 25.1, white count of 11.6, platelet count of 291,000. MCV of 81.2. INR 1.27, PT of 13.5. ABG showing pH of 7.3, pCO2 of 73 , PO2 214, bicarb of 33.5, and this was on BiPAP this morning. Sodium 140, potassium 3.8, chloride 100, bicarb 30, anion gap of 10, BUN of 34, creatinine 1, glucose of 94, calcium 8.8, phosphorus 4.4, magnesium 2.1. Total bilirubin is 0.5, direct 0.2. AST 53, ALT 35, alkaline phosphatase 134, total protein 7, albumin of 3.3. The fluid studies are currently pending. IMPRESSION AND PLAN: 1. Pelvic abscesses and diverticulitis. Continuing antibiotics per Dr. Warner. 2. Acute hypoxemic respiratory failure is improving. She does have atelectasis in the lungs. She is being followed by Dr. Coleman. Her breathing is improved today. She is on 4 L nasal cannula. 3. Liver cirrhosis complicated with ascites. We will follow up on the fluid studies and we keep her on a low-salt diet less than 2 g per 24 hours and she is already pending antibiotics for now for diverticulitis and pelvic abscesses. 4. We will check antimitochondrial antibody. 5. Bilateral pleural effusions. Being followed by Dr. Coleman. 6. Protein calorie malnutrition. She currently on pureed diet. We will encourage oral intake. 7. TPN may have to be restarted if cleared by the critical care team as she did appear to be volume overloaded and now is improving. 8. The patient has anemia and we will start on Iron C b.i.d. and multivitamins once daily. 9. Above plan of care discussed with the patient and family at bedside. All questions answered. Dr. Dhillon will be production manufacturing worker over the weekend. I will return on Wednesday. cc: MD Brissa Genao MD Kirk L. Jackson, MD Mamoun I. Najjar, MD Leroy F. Harris, MD MTDD
--- NOTE | 2017-03-12 18:20 | PROGRESS NOTE ---
DATE: 03/12/2017 PRESENT ILLNESS: The patient has multiple pelvic abscesses most likely secondary to diverticulitis. She also has cirrhosis of the liver with marked ascites. MEDICATIONS: This is the 14th day of treatment with a combination of clindamycin and aztreonam. PHYSICAL EXAMINATION: Vital Signs: Temperature is 98.4 degrees, pulse 87, respirations 15, blood pressure 158/64. General: This is an ill-appearing, elderly female. She is in no acute distress. She actually feels much better since she had aspiration of ascites which removed liters of fluid from her. Abdomen: Soft and nontender. Cardiovascular: Heart rate is regular. Lungs: Clear to auscultation. LAB AND X-RAY: The patient's CBC today shows a white count of 11,600, hemoglobin 7.7 and platelet count 291,000. The blood gases show a pH of 7.33, a PO2 of 214 and a pCO2 of 73. Creatinine 0.9. GFR is 59. All the studies cell on the ascites that was removed from the abdomen are pending. There is no new x-ray today either. ASSESSMENT AND PLAN: The patient has pelvic abscesses. I plan to continue her current antibiotics pending the culture results from the ascites which was drawn off the patient's abdomen. COMORBIDITIES: Include that she is elderly, she has diverticulitis which caused her to develop her pelvic abscesses and she has cirrhosis of the liver which is far advanced. The patient also developed hepatitis A. cc: Ivan Warner MD
[2017-03-12 18:22] LABS: TOTAL PROT BODY FLUID 4.4 g/dL
[2017-03-12 18:43] LABS: SPECIMEN PERITONEAL FLUID
[2017-03-12 18:45] LABS: DIFF NEEDED? YES; WBC BF 423 /cumm
[2017-03-12 18:50] LABS: MONOS 54 %; POLYS 46 %
[2017-03-12] MEDS: LIPOSYN 20% 250 ML IV SCH (20:18)
[2017-03-12] MEDS: TPN ELECTROLYTES 20 ML, MAGNESIUM SULFATE 5 MEQ, POTASSIUM CHLORIDE 20 MEQ, SODIUM PHOS... IV SCH ×8 (20:18)
[2017-03-12] MEDS: ULTRAM PO PRN (21:49)
[2017-03-12] MEDS: LABETALOL IV PRN (23:57)
[2017-03-13] MEDS: AZACTAM 2 GM in NS 100 ML IV SCH ×3 (00:03→18:08)
[2017-03-13] MEDS: HUMULIN R SUBQ SCH ×6 (00:12→20:22)
[2017-03-13] MEDS: CLINDAMYCIN 600 MG/NS 600 MG/50 ML IVPB IV SCH ×3 (01:04→18:08)
[2017-03-13 04:57] LABS: ALLEN TEST YES; BE 10.5 mmoll (-3.0-3.0); BLOOD TYPE ARTERIAL; DRAW SITE R RADIAL; METHB 0.8 % (0.0-1.5); MODALITY CANNULA; O2(CT) 11.5 mL/dL (15.0-23.0); PCO2(98.6) 50 mmHg (35-45); PO2(98.6) 64 mmHg (60-100); SAMPLE BLOOD; SAO2 97.3 % (95.0-100.0); THB 8.7 g/dL (11.5-17.4); pH(98.6) 7.46 (7.35-7.45)
[2017-03-13 05:29] LABS: MANUAL DIFF NEEDED? NO
[2017-03-13 05:34] LABS: BASO% 0.5 % (0.0-0.8); EOS# 0.21 X1000 (0.0-0.7); HEMATOCRIT 26.5 % (37.0-47.0); HEMOGLOBIN 8.4 g/dL (12.0-16.0); IMM GRAN# 0.02 X1000 (0.0-0.04); IMM GRAN% 0.2 % (0.0-0.5); LYMPH# 0.84 X1000 (1.2-3.4); MCH 24.9 PG (27-31); MCHC 31.7 g/dL (33-37); MCV 78.4 FL (81-99); MONO# 0.85 X1000 (0.11-0.59); MONO% 8.1 % (1.7-9.3); MPV 10.2 FL (7.4-10.4); NEUT% 81.2 % (42.2-75.2); PLT 350 X1000 (130-400); RBC 3.38 XMIL (4.2-5.4)
[2017-03-13 05:39] LABS: INR 1.27; PROTIME 13.5 Seconds (9.2-11.7)
[2017-03-13] MEDS: SODIUM CHLORIDE 0.9% INJ PRN (06:03)
[2017-03-13] MEDS: SYNTHROID IV SCH (06:03)
[2017-03-13 06:05] LABS: MAGNESIUM 2.1 mg/dL (1.5-2.7)
[2017-03-13] MEDS: LABETALOL IV PRN (06:05)
[2017-03-13 06:07] LABS: PREALBUMIN 8.2 mg/dL (20-40)
[2017-03-13 06:29] LABS: AGAP 6; ALBUMIN 2.3 g/dL (3.5-5.0); ALKALINE PHOSPHATASE 118 U/L (32-104); BUN 39 mg/dL (8-22); CALCIUM 8.5 mg/dL (8.8-10.2); CHLORIDE 102 mmol/L (98-107); COSMO 294; DIRECT BILIRUBIN < 0.20 mg/dL (0.00-0.20); GOT 38 U/L (10-30); GPT 27 U/L (10-36); POTASSIUM 3.3 mmol/L (3.5-5.1); SODIUM 140 mmol/L (136-145); TCO2 32 mmol/L (25-35); TOTAL BILIRUBIN 0.28 mg/dL (0.20-1.00); TOTAL PROTEIN 6.4 g/dL (6.3-8.3)
--- NOTE | 2017-03-13 07:07 | Diag Imaging Result Doc PS360 ---
EXAM: CHEST-1 VIEW HISTORY: SOB TECHNIQUE: AP portable at 0500 COMMENT: There are bilateral pleural effusions more so on the right than the left. There is interstitial and alveolar opacity bilaterally consistent with pulmonary edema. Overall there has been no significant change since 03/12/2017. IMPRESSION: Pulmonary edema and pleural effusions. Electronically signed by Dave Proctor 03/13/2017 7:05 AM
[2017-03-13] MEDS: POTASSIUM CHLORIDE 20 MEQ/SWI 20 MEQ/100 ML IVPB IV SCH ×2 (10:34→11:45)
[2017-03-13] MEDS: TOPROL XL PO SCH (10:34)
[2017-03-13] MEDS: ICAR-C PO SCH ×2 (10:34→20:22)
[2017-03-13] MEDS: LASIX IV SCH ×2 (10:35→20:22)
[2017-03-13] MEDS: CULTURELLE PO SCH ×2 (10:37→20:22)
[2017-03-13] MEDS: MONISTAT-7 VAG CREAM VAG SCH (10:37)
[2017-03-13] MEDS: CENTRUM SILVER PO SCH (10:38)
[2017-03-13] MEDS: ULTRAM PO PRN (15:24)
[2017-03-13] MEDS: TPN ELECTROLYTES 20 ML, MAGNESIUM SULFATE 5 MEQ, POTASSIUM CHLORIDE 20 MEQ, SODIUM PHOS... IV SCH ×8 (18:05)
[2017-03-13] MEDS: LOVENOX SUBQ SCH (18:08)
[2017-03-13] MEDS: PROTONIX IV SCH (18:09)
--- NOTE | 2017-03-13 18:19 | PROGRESS NOTE ---
DATE: 03/13/2017 SUBJECTIVE: The patient is awake and alert. She is resting comfortably. She has no complaints. OBJECTIVE: Vital Signs: Temperature 97.4 degrees, blood pressure 182/72, heart rate 71, respiration 17, O2 saturations 95% on 4 L nasal cannula. General: This is a chronically ill appearing, elderly female, lying in bed, in no acute distress. Head: Normocephalic, atraumatic. Heart: S1, S2. Normal. Regular rate and rhythm. Lungs: He air entry bilaterally. No crackles no rales. Abdomen: Positive bowel sounds. Soft, nontender, nondistended. Extremities: Trace pedal edema. No cyanosis. No calf tenderness. Neurologic: The patient is alert and oriented. LABS: White blood cell count 10, hemoglobin 8.4, hematocrit 26, platelets 350, 000. Sodium 140, potassium 3.3, chloride 102, CO2 32, BUN 39, creatinine 0.8, glucose 195. ProBNP 866. Alkaline phosphatase 118. ASSESSMENT AND PLAN: 1. Pulmonary edema with bilateral pleural effusions. Will restart the patient' s IV Lasix and monitor the patient's urine output and volume status closely. 2. Multiple pelvic abscesses. Continue on the current IV antibiotic regimen as directed by Dr. Ivan Warner. 3. Ascites status post paracentesis. The patient had an ultrasound-guided paracentesis on March 12, at which time, 4.3 L of peritoneal fluid was removed. The patient is more comfortable today. 4. Hypothyroidism. Continue on Synthroid. 5. Severe protein calorie malnutrition. The patient is on TPN. 6. Hypertension. Will add hydralazine. 7. Liver cirrhosis. Aware 8. Deep vein thrombosis prophylaxis. Will continue on Lovenox. 9. The plan of care was discussed with the patient's family at the bedside. cc: MD MESSI Leos
--- NOTE | 2017-03-13 18:24 | PROGRESS NOTE ---
DATE: 03/13/2017 PRIMARY CARE PROVIDER: Dr. Brissa Dinero M.D. PRIMARY ASSISTANT PROFESSOR OF CHEMISTRY: Dr. Keyur Trinidad M.D. ASSISTANT PROFESSOR OF CHEMISTRY: Dr. James Bae M.D. HISTORY OF PRESENT ILLNESS: Overnight the patient states that she feels much better. She underwent an abdominal paracentesis with interval improvement in her abdominal distention and pain. She remains on antibiotic therapy per Dr. Warner for treatment of pelvic abscesses and diverticulitis. She has cirrhosis complicated by ascites and is currently on a low-salt diet. Overall she denies complaints. She remains on ferrous sulfate, vitamin C and multivitamins for management of her iron deficiency anemia. OBJECTIVE DATA: Vital signs: Reveals a blood pressure of 171/65, pulse 72, respirations 17, temperature of 97.4 degrees. HEENT: Negative for jaundice. Pulmonary: Lungs are clear to auscultation anteriorly. Cardiovascular: Reveals regular rate and rhythm with no murmurs, gallops, or rubs. Abdominal Exam: Reveals normoactive bowel sounds. The abdomen is soft with mild distention and a fluid wave consistent with ascites. Extremities: Her extremities bilaterally are negative for cyanosis, clubbing or edema. OBJECTIVE DATA: Reveals a hemoglobin of 8.4 with hematocrit of 26.5 and a white count 10.55. She has 350,000 platelets. Her PT is 13.5 with an INR of 1.27. On blood gas her pH is 7.46, pCO2 50, PO2 64 on 36% oxygenation on 4 L per nasal cannula. Sodium is 140, potassium 3.3, chloride 102, CO2 32, BUN 39, creatinine 0.8 with a glucose of 195. Calcium is 8.5, magnesium 2.5, phosphorus is 2.5, magnesium 2.1, total bilirubin 0.28, direct bilirubin less than 0.20, AST 38, ALT 27, alkaline phosphatase 118, BNP 866, total protein 6.4, albumin of 2.3. Her prealbumin is 8.0. RECOMMENDATION: 1. Continue antibiotics as per Dr. Warner for her active pelvic infection and diverticulitis. 2. Continue a low-sodium diet for management of her liver disease and ascites. 3. Continue puree diet for management of protein calorie malnutrition. 4. Continue multivitamin with iron and vitamin C for management of her anemia. cc: Keyur Trinidad MD [facility]
[2017-03-13] MEDS: LIPOSYN 20% 250 ML IV SCH (20:22)
[2017-03-13] MEDS: APRESOLINE PO SCH (20:22)
[2017-03-13] MEDS: ZOFRAN IV PRN (20:50)
[2017-03-14] MEDS: HUMULIN R SUBQ SCH ×6 (00:34→20:15)
[2017-03-14] MEDS: AZACTAM 2 GM in NS 100 ML IV SCH ×4 (00:34→16:43)
[2017-03-14] MEDS: CLINDAMYCIN 600 MG/NS 600 MG/50 ML IVPB IV SCH ×3 (00:59→17:12)
[2017-03-14] MEDS: APRESOLINE PO SCH ×3 (04:03→20:14)
[2017-03-14 05:02] LABS: ALLEN TEST YES; BE 12.2 mmoll (-3.0-3.0); BLOOD TYPE ARTERIAL; DRAW SITE R RADIAL; METHB 0.8 % (0.0-1.5); MODALITY CANNULA; O2(CT) 12.9 mL/dL (15.0-23.0); PO2(98.6) 63 mmHg (60-100); SAMPLE BLOOD; SAO2 95.1 % (95.0-100.0); THB 9.9 g/dL (11.5-17.4)
[2017-03-14 05:03] LABS: PCO2(98.6) 63 mmHg (35-45)
[2017-03-14 05:25] LABS: MANUAL DIFF NEEDED? NO
[2017-03-14 05:33] LABS: BASO% 0.4 % (0.0-0.8); EOS# 0.34 X1000 (0.0-0.7); EOS% 2.9 % (0.0-10.0); HEMATOCRIT 28.8 % (37.0-47.0); HEMOGLOBIN 9.3 g/dL (12.0-16.0); IMM GRAN% 0.9 % (0.0-0.5); LYMPH% 7.8 % (20.5-51.1); MCH 25.2 PG (27-31); MCHC 32.3 g/dL (33-37); MONO# 0.93 X1000 (0.11-0.59); MPV 10.3 FL (7.4-10.4); PLT 359 X1000 (130-400); RBC 3.69 XMIL (4.2-5.4)
[2017-03-14 05:43] LABS: INR 1.13
[2017-03-14 05:47] LABS: MAGNESIUM 2.1 mg/dL (1.5-2.7); PREALBUMIN 9.9 mg/dL (20-40)
[2017-03-14 05:59] LABS: AGAP 11; BUN 34 mg/dL (8-22); CHLORIDE 100 mmol/L (98-107); COSMO 298; POTASSIUM 3.7 mmol/L (3.5-5.1); SODIUM 145 mmol/L (136-145); TCO2 34 mmol/L (25-35)
[2017-03-14 06:04] LABS: ALBUMIN 2.4 g/dL (3.5-5.0); ALKALINE PHOSPHATASE 124 U/L (32-104); GOT 44 U/L (10-30); GPT 29 U/L (10-36); TOTAL BILIRUBIN 0.18 mg/dL (0.20-1.00); TOTAL PROTEIN 6.1 g/dL (6.3-8.3)
[2017-03-14] MEDS: SYNTHROID IV SCH (06:30)
[2017-03-14] MEDS: SODIUM CHLORIDE 0.9% INJ PRN (06:30)
[2017-03-14 06:41] LABS: DIRECT BILIRUBIN < 0.10 mg/dL (0.00-0.20)
--- NOTE | 2017-03-14 07:12 | Diag Imaging Result Doc PS360 ---
EXAM: CHEST-1 VIEW HISTORY: SOB TECHNIQUE: AP portable at 0500 COMMENT: There are large bilateral pleural effusions. This has worsened since the previous study of 03/13/2017. There is apparent underlying pulmonary edema and/or pneumonia. IMPRESSION: Pulmonary edema with worsening pleural effusions. Electronically signed by Dave Proctor 03/14/2017 7:09 AM
[2017-03-14] MEDS: LASIX IV SCH ×2 (08:52→20:14)
[2017-03-14] MEDS: TOPROL XL PO SCH (08:53)
[2017-03-14] MEDS: ICAR-C PO SCH ×2 (08:53→20:14)
[2017-03-14] MEDS: CENTRUM SILVER PO SCH (08:53)
[2017-03-14] MEDS: MONISTAT-7 VAG CREAM VAG SCH (08:53)
[2017-03-14] MEDS: CULTURELLE PO SCH ×2 (08:53→20:15)
--- NOTE | 2017-03-14 15:36 | PROGRESS NOTE ---
DATE: 03/14/2017 SUBJECTIVE: The patient is resting comfortably in bed. She does have periods of confusion. OBJECTIVE: Vital Signs: Temperature 97.6 degrees, blood pressure 131/59, heart rate 81, respirations 20, O2 saturations 93% on 4 L nasal cannula. General: This is an elderly female, lying in bed, in no acute distress. Head: Normocephalic, atraumatic. Heart : S1, S2. Normal. Regular rate and rhythm. Lungs: Equal air entry bilaterally. Diminished breath sounds at the bases. Abdomen: Positive bowel sounds. Soft, nontender, nondistended. Extremities: +1 edema. No cyanosis. No calf tenderness. Neurologic: The patient is awake and alert, but does get confused at times. LABORATORY: White blood cell count 11, hemoglobin 9.3, hematocrit 28, platelets 359,000. INR 1.1. Sodium 145, potassium 3.7, chloride 100, CO2 34. BUN 34. Creatinine 0.7. Glucose 132. AST 44. ALT 29. Alkaline phosphatase 121. ASSESSMENT AND PLAN: 1. Pulmonary edema with bilateral pleural effusions. We will increase the Lasix dosage to 60 mg IV q.12 hours. Will continue to monitor the patient's volume status closely. 2. Ascites status post paracentesis. We will continue to monitor. 3. Multiple pelvic abscesses. Continue on IV antibiotic therapy. 4. Hypothyroidism. Continue on Synthroid. 5. Severe protein calorie malnutrition. The patient remains on TPN. 6. Hypertension. Improved. Continue on hydralazine. 7. Liver cirrhosis. Aware. 8. Leukocytosis. Continue on IV antibiotic therapy. 9. GI prophylaxis. Continue on IV protonix. 10. Deep vein thrombosis prophylaxis. Continue on Lovenox. The plan of care was discussed with the patient and her family. cc: Brissa Dinero MD [facility]
[2017-03-14] MEDS: PROTONIX IV SCH (15:59)
[2017-03-14] MEDS: TPN ELECTROLYTES 20 ML, MAGNESIUM SULFATE 5 MEQ, POTASSIUM CHLORIDE 20 MEQ, SODIUM PHOS... IV SCH ×16 (16:31→19:09)
[2017-03-14] MEDS: LOVENOX SUBQ SCH (16:40)
--- NOTE | 2017-03-14 19:30 | PROGRESS NOTE ---
DATE: 03/14/2017 SUBJECTIVE: The patient is resting comfortably in bed. According to the nursing staff, she has done well today. Upon questioning, the patient states that she is sleeping and does not feel like talking right now. She denies complaints. Therefore, I will defer to Dr. Bae who returns in the morning to assume care. cc: MD James Rivers MD Katherine Takundwa, MD
[2017-03-14] MEDS: LIPOSYN 20% 250 ML IV SCH (19:47)
[2017-03-14] MEDS: ULTRAM PO PRN (19:47)
[2017-03-15] MEDS: CLINDAMYCIN 600 MG/NS 600 MG/50 ML IVPB IV SCH ×3 (01:21→17:25)
[2017-03-15] MEDS: AZACTAM 2 GM in NS 100 ML IV SCH ×3 (01:21→17:25)
[2017-03-15] MEDS: HUMULIN R SUBQ SCH ×6 (01:21→20:01)
[2017-03-15 04:26] LABS: ALLEN TEST YES; BE 12.6 mmoll (-3.0-3.0); BLOOD TYPE ARTERIAL; DRAW SITE R RADIAL; METHB 1.3 % (0.0-1.5); O2(CT) 13.9 mL/dL (15.0-23.0); PO2(98.6) 66 mmHg (60-100); SAMPLE BLOOD; SAO2 97.1 % (95.0-100.0); THB 10.5 g/dL (11.5-17.4); pH(98.6) 7.44 (7.35-7.45)
[2017-03-15 04:27] LABS: MODALITY CANNULA
[2017-03-15 04:28] LABS: PCO2(98.6) 57 mmHg (35-45)
[2017-03-15] MEDS: APRESOLINE PO SCH ×3 (05:32→20:00)
[2017-03-15 05:36] LABS: MANUAL DIFF NEEDED? NO
[2017-03-15 05:43] LABS: BASO% 0.6 % (0.0-0.8); EOS# 0.48 X1000 (0.0-0.7); EOS% 4.5 % (0.0-10.0); HEMATOCRIT 28.1 % (37.0-47.0); HEMOGLOBIN 8.7 g/dL (12.0-16.0); IMM GRAN# 0.08 X1000 (0.0-0.04); IMM GRAN% 0.8 % (0.0-0.5); LYMPH# 0.91 X1000 (1.2-3.4); LYMPH% 8.6 % (20.5-51.1); MCH 24.6 PG (27-31); MCV 79.4 FL (81-99); MONO# 1.09 X1000 (0.11-0.59); MONO% 10.3 % (1.7-9.3); MPV 10.8 FL (7.4-10.4); NEUT% 75.2 % (42.2-75.2); PLT 348 X1000 (130-400); RBC 3.54 XMIL (4.2-5.4)
[2017-03-15 06:04] LABS: AGAP 5; BUN 43 mg/dL (8-22); CALCIUM 8.3 mg/dL (8.8-10.2); CHLORIDE 101 mmol/L (98-107); COSMO 294; POTASSIUM 3.9 mmol/L (3.5-5.1); SODIUM 141 mmol/L (136-145); TCO2 35 mmol/L (25-35)
[2017-03-15 06:06] LABS: MAGNESIUM 2.1 mg/dL (1.5-2.7)
[2017-03-15] MEDS: SYNTHROID PO SCH (06:21)
--- NOTE | 2017-03-15 07:20 | Diag Imaging Result Doc PS360 ---
EXAM: CHEST-1 VIEW HISTORY: SOB TECHNIQUE: AP portable at 0500 COMMENT: There are bilateral pleural effusions. The right effusion is larger than the left. There is diffuse pulmonary edema. This has not changed appreciably considering differences in technique compared to 03/14/2017. IMPRESSION: Pulmonary edema and pleural effusions. Electronically signed by Dave Proctor 03/15/2017 7:18 AM
[2017-03-15] MEDS: CENTRUM SILVER PO SCH (09:15)
[2017-03-15] MEDS: CULTURELLE PO SCH ×2 (09:15→20:00)
[2017-03-15] MEDS: TOPROL XL PO SCH (09:15)
[2017-03-15] MEDS: LASIX IV SCH ×2 (09:15→20:00)
[2017-03-15] MEDS: MONISTAT-7 VAG CREAM VAG SCH (09:15)
[2017-03-15] MEDS: ICAR-C PO SCH ×2 (09:15→20:00)
--- NOTE | 2017-03-15 11:38 | PROGRESS NOTE ---
DATE: 03/15/2017 SUBJECTIVE: Patient is currently resting in bed. She is feeling better. She denies any fevers or chills. She does complain of abdominal distention and some early satiety and decreased p.o. intake and nausea. She had moved her bowels. She had 2 liquid brown bowel movements today. Her fluid accumulation in the abdomen is coming back. Over the weekend, her ascitic fluid studies were back and the fluid culture is negative both for aerobic and anaerobic. The peritoneal fluid did have a high amount of leukocytes and half of them were polymorphonuclear white cells. The total albumin in the ascitic fluid was 1.8 and SAAG is less than 1.1. As the albumin in the blood at that time was 2.7, this suggests that this ascites could be secondary to a combination of liver cirrhosis and pelvic abscesses. PHYSICAL EXAMINATION: Vital Signs: Temperature of 99.5 degrees, pulse rate of 87, respiratory rate 18, blood pressure 132/65, saturating 100% on 5 L nasal cannula. Body weight of 165 pounds 8 ounces. General Appearance: Thinly built, lying in bed, in no acute distress. HEENT: Pale conjunctivae. No icterus. Nasal cannula in place. Neck: Supple. Abdomen: Distention noted. Bowel sounds are heard. No guarding. Mild discomfort at the periumbilical and infraumbilical region. Bowel sounds are present. Extremities: No cyanosis and clubbing. Neurologic: She is awake, alert, and oriented. LABS: Hemoglobin and hematocrit are 8.7 and 28.1, white count of 10.5, platelet count of 348,000, MCV of 879.4. Her ABG showed pH of 7.44, pCO2 757, PO2 66, lactate 0.6. This is on 36% FiO2. Sodium 141, potassium 3.9, chloride 101, bicarb 30, anion gap 5, BUN of 43, creatinine 0.8, glucose of 137, calcium is 8.3, phosphorus 3.8, magnesium 2.1. AST 44, ALT 29, alkaline phosphatase is 124, total protein 6.1, albumin of 2.4, prealbumin 9.9. IMPRESSION AND PLAN: 1. Pelvic abscesses, diverticulitis contributing to ascites. Continue with antibiotics per the primary care team and Dr. Warner. 2. Cirrhosis of the liver. Unclear etiology. We will follow 1 antimitochondrial body. Cirrhosis is causing her ascites as well in the setting of intraabdominal infection. We will keep her on balanced volume status and keep her on low-sodium diet, less than 2 g per 24 hours. 3. Protein calorie malnutrition. Continue total parenteral nutrition. 4. Anemia. We will give her iron C twice a day, multivitamin once daily. 5. Gastrointestinal prophylaxis, intravenous proton pump inhibitors. 6. Pulmonary edema with bilateral pleural effusions. She is on Lasix 60 mg intravenous every 12 hours. This will be monitored by Dr. Coleman and primary team. 7. I discussed the plan with the patient and the nurse, and all questions answered. Further recommendations pending hospital course. cc: MD Ivan Genao MD Mamoun I. Najjar, MD R. Tyler Harney, MD Kirk L. Jackson, MD Alexis R. Penot, MD
--- NOTE | 2017-03-15 13:24 | PROGRESS NOTE ---
DATE: 03/15/2017 SUBJECTIVE: The patient does not feel well but her breathing is improved. OBJECTIVE: Vital signs: Blood pressure 132/65, heart rate of 87, respiratory rate 23, temperature 99.5 degrees, 98% on 5 L. Cardiovascular: Regular rate and rhythm. Pulmonary: Bilateral breath sounds. Diminished at the bases with rales bilaterally. GI: Soft, nontender, nondistended. Bowel sounds are positive. LABORATORY DATA: White count 10, hemoglobin and hematocrit 8 and 28, platelets 348,000. PH 7.44, pCO2 57, PaO2 66. Basic looked okay except for BUN is 43. Micro is overall negative. PROBLEM LIST: 1. Pelvic abscesses related to diverticulitis. She is on IV antibiotic therapy. She has been on aztreonam since the , that is 17 days, clindamycin since the , 20 days I think. ID is following. Surgery is following. GI is following. 2. 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 Stable. She is status post paracentesis. That was negative. It looks like it was about 1.5. 3. Severe protein-calorie malnutrition. She is on TPN. 4. Anemia. Appears to be stable. 5. Pulmonary edema, bilateral pleural effusions. She is on Lasix. Attempted thoracentesis last week but she was not really stable for that and I am a little concerned because right now she will not sit up long enough for that to be helpful. So I think right now we are just going to watch it and continue with diuresis. 6. Disposition. Still a little difficult situation. She is overall improved but I feel she is back to the level she was before she declined with the respiratory issues. But again, clinically her white count has come down and we are attempting to feed her, although she is not eating very much. We will continue to monitor that. I think I am going to try to add some Periactin just for appetite stimulation and follow closely. cc: Dave Hamlin MD
[2017-03-15] MEDS: LOVENOX SUBQ SCH (13:41)
[2017-03-15] MEDS: PERIACTIN PO SCH (16:45)
[2017-03-15] MEDS: SODIUM CHLORIDE 0.9% INJ SCH (16:45)
[2017-03-15] MEDS: PROTONIX IV SCH (16:45)
[2017-03-15] MEDS: ZOFRAN IV PRN (16:51)
[2017-03-15] MEDS: TPN ELECTROLYTES 20 ML, MAGNESIUM SULFATE 5 MEQ, POTASSIUM CHLORIDE 20 MEQ, SODIUM PHOS... IV SCH ×16 (17:24→19:22)
--- NOTE | 2017-03-15 17:30 | PROGRESS NOTE ---
DATE: 03/15/2017 PRESENT ILLNESS: The patient has multiple pelvic abscess, most likely secondary to diverticulitis. She also has a cirrhosis of the liver and unfortunately the ascites that was drawn off last time has all reaccumulated. MEDICATIONS: The patient has been on clindamycin and aztreonam both now for 20 days. PHYSICAL EXAMINATION: Vital Signs: Temperature is 99.3 degrees, pulse 81, respirations 19, blood pressure 125/56. General: This is an ill-appearing elderly female who looks malnourished. Lungs: Clear to auscultation. Cardiovascular: Heart rate is regular. Abdomen: As mentioned above appears to be filling up again with ascites. It is protuberant, soft, and not tender. Lungs: Clear to auscultation. Cardiovascular: Heart rate is regular. LAB AND X-RAY: CBC today shows a white count of 10,570, hemoglobin 8.7, and platelet count 348,000. Blood gases show a pH of 7.44, pO2 of 66, a pCO2 of 57, creatinine 0.8. GFR is greater than 60. The ascitic fluid drawn off had white cell count of 423 and amylase of 19 and a negative culture. Chest x-ray shows pulmonary edema. ASSESSMENT AND PLAN: Patient has pelvic abscesses. I plan to continue the current antibiotics. Unfortunately, the patient is very malnourished and has severe liver disease. Her comorbidities are that she is elderly, she has had diverticulitis, she has had pelvic abscesses and cirrhosis of the liver with ascites and malnutrition. The patient also had hepatitis A. cc: Ivan Warner MD
[2017-03-15] MEDS: LIPOSYN 20% 250 ML IV SCH (20:01)
[2017-03-16] MEDS: AZACTAM 2 GM in NS 100 ML IV SCH ×3 (01:22→17:01)
[2017-03-16] MEDS: HUMULIN R SUBQ SCH ×6 (01:27→21:28)
[2017-03-16] MEDS: CLINDAMYCIN 600 MG/NS 600 MG/50 ML IVPB IV SCH ×3 (01:27→17:01)
[2017-03-16 04:43] LABS: ALLEN TEST YES; BE 13.3 mmoll (-3.0-3.0); BLOOD TYPE ARTERIAL; DRAW SITE R RADIAL; METHB 1.4 % (0.0-1.5); O2(CT) 11.3 mL/dL (15.0-23.0); PO2(98.6) 57 mmHg (60-100); SAMPLE BLOOD; SAO2 94.5 % (95.0-100.0); THB 8.8 g/dL (11.5-17.4); pH(98.6) 7.47 (7.35-7.45)
[2017-03-16 04:45] LABS: MODALITY BI PAP; PCO2(98.6) 53 mmHg (35-45)
[2017-03-16] MEDS: PERIACTIN PO SCH ×3 (06:23→17:02)
[2017-03-16] MEDS: SYNTHROID PO SCH (06:23)
[2017-03-16] MEDS: APRESOLINE PO SCH ×3 (06:23→20:21)
[2017-03-16 06:34] LABS: MAGNESIUM 2.3 mg/dL (1.5-2.7)
[2017-03-16 06:38] LABS: AGAP 7; BUN 47 mg/dL (8-22); CALCIUM 8.1 mg/dL (8.8-10.2); CHLORIDE 99 mmol/L (98-107); COSMO 293; POTASSIUM 3.9 mmol/L (3.5-5.1); SODIUM 140 mmol/L (136-145); TCO2 34 mmol/L (25-35)
--- NOTE | 2017-03-16 07:33 | Diag Imaging Result Doc PS360 ---
CHEST-1 VIEW - 03/16/2017 INDICATION: SOB TECHNIQUE: COMPARISON: 03/15/2017 FINDINGS: Stable right PICC line. There is slight worsening in the moderate to large bilateral pleural effusions, right greater than left. Heart size remains normal. IMPRESSION: Worsening pleural effusions. Electronically signed by Fabian Cruz 03/16/2017 7:31 AM
[2017-03-16] MEDS: MONISTAT-7 VAG CREAM VAG SCH (09:00)
[2017-03-16] MEDS: CULTURELLE PO SCH ×2 (09:23→20:21)
[2017-03-16] MEDS: ICAR-C PO SCH ×2 (09:23→20:21)
[2017-03-16] MEDS: CENTRUM SILVER PO SCH (09:23)
[2017-03-16] MEDS: TOPROL XL PO SCH (09:23)
[2017-03-16] MEDS: LASIX IV SCH ×2 (09:24→20:21)
[2017-03-16] MEDS ORDERED: NS NEB INH SCH (10:00)
[2017-03-16] MEDS: ULTRAM PO PRN (10:22)
--- NOTE | 2017-03-16 11:12 | PROGRESS NOTE ---
DATE: 03/16/2017 HISTORY OF PRESENT ILLNESS: Ms. Pineda is an 87-year-old, female. She is in no acute distress. Upon initial presentation, she was taking applesauce with crushed medications. No signs of coughing or aspiration. She complains of all of her bones aching and wishes to be more ambulatory. Apparently, physical therapy worked with her this morning and she had some desaturations with activity. Patient was instructed on increasing her nourishment for her body in order to improve. She states that she does feel slightly short of breath with activity but otherwise no other complaints. She states that she does still have diarrhea. OBJECTIVE: Vital Signs: Temperature 98.5 degrees, heart rate 98, respiratory rate 23, blood pressure 116/57, O2 saturation 94% on 5 L nasal cannula. General: Ms. Pineda is an 87-year-old, , elderly female, very ill-appearing. Is able to answer simple questions and follow simple commands. Cardiovascular: S1, S2. Regular rate and rhythm. No rubs, gallops, murmurs. Pulmonary: Clear to auscultate anteriorly and posteriorly in the upper lobes. Bilateral lower lobes very diminished. Currently on 5 L nasal cannula. No accessory muscle use. GI: Abdomen is round, semifirm. Positive bowel sounds x4. Nontender. Extremities: There are +2 dorsalis and radial pulses. No peripheral edema noted. Neurologic: Oriented to name. Follows simple commands. Moves all extremities equally. Laboratory Data: CBC not obtained today. ABGs: PH 7.47, pCO2 of 53, PO2 57, bicarb 35, base excess positive 13, saturation 91%. Hemoglobin of 8.8. Lactate of 0.8. This was obtained on BiPAP 35%, 07/06. BMP: Sodium 140, potassium 3.9, BUN 47, creatinine 0.8, glucose 123, calcium 8.1, phosphorus 3.8, magnesium 2.3. ProBNP is 428. Imaging: Chest x-ray today reveals stable right PICC line, moderate to large bilateral pleural effusions with the right being greater than the left. Heart size is normal. ASSESSMENT AND PLAN: 1. Pelvic abscesses related to diverticulitis. Continue with intravenous antibiotic therapy, aztreonam since the , clindamycin since the . Dr. Warner with infectious disease and Dr. Bae with gastroenterology are following, along with surgery following. 2. 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 Now with ascites. She is status post paracentesis. Abdomen is currently round, semifirm but nontender. 3. Severe protein calorie malnutrition. Continue with total parenteral nutrition and lipids. Her prealbumin most recently on the was 9.9. She is on a pureed diet along with Ensure every meal. Daughter at the bedside states that she is not taking in very much with her meals. Patient was instructed to increase the frequency of meal intake to every 2 hours with a total of 6 meals per day. 4. Pulmonary edema that is resolved but now with continued bilateral pleural effusions, right greater than the left. This does not seem to be improving. We will continue the Lasix. May have to reconsider thoracentesis as the effusions are moderate to large, especially on the right, and now that she is having somewhat more of desaturations with activity. 5. Hypercarbic, hypoxemic respiratory insufficiency. Continue with oxygen therapy during the day and BiPAP at night and BiPAP as needed. We will add Xopenex and Atrovent along with budesonide respiratory treatments. Follow ABGs and chest x-rays. 6. Hyperglycemia. We will check hemoglobin A1c. Continue on sliding scale insulin and pattern blood glucoses. 7. Iron deficiency anemia. We will repeat CBC in the morning. Continue with iron supplementation. 8. Diarrhea. So far, stool studies have shown no pathogens, although it is positive for blood. We will add liquid Carafate to the medication regimen. Metamucil has been added to her medication regimen. 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 Patient complains of her bones aching and wishes to be able to move around more, although her desaturations are holding her back. We will continue with physical therapy. 10. Tobacco abuse. Apparently, she has used smokeless tobacco for several years. Cessation was discussed. She has very poor dentition. 11. Deep venous thrombosis prophylaxis, Lovenox. 12. Gastrointestinal prophylaxis, Protonix. Dictated by RD Worthy for Dave Hamlin MD cc: RD Worthy MD pt was seen face to face and examined, pt is still dyspneic due to persistent volume overload issues, pneumonia and pleural effusions, we may have to consider thorancentesis when more stable, otherwise agree with plan, discussed with family in the room as well SISSY SWENSON
[2017-03-16] MEDS: ATROVENT NEB INH SCH ×4 (12:01→23:04)
[2017-03-16] MEDS: XOPENEX NEB INH SCH ×4 (12:02→23:04)
[2017-03-16] MEDS: CARAFATE LIQUID PO SCH ×2 (13:17→20:21)
[2017-03-16] MEDS: LOVENOX SUBQ SCH (13:17)
[2017-03-16] MEDS: PROTONIX IV SCH (17:01)
[2017-03-16] MEDS: SODIUM CHLORIDE 0.9% INJ SCH (17:01)
[2017-03-16] MEDS: TPN ELECTROLYTES 20 ML, MAGNESIUM SULFATE 5 MEQ, POTASSIUM CHLORIDE 20 MEQ, SODIUM PHOS... IV SCH ×8 (17:41)
[2017-03-16] MEDS ORDERED: LASIX IV ONE (18:15)
[2017-03-16] MEDS: MUCOMYST 20% INH SCH (19:18)
[2017-03-16] MEDS: PULMICORT INH SCH (19:19)
[2017-03-16] MEDS: LIPOSYN 20% 250 ML IV SCH (20:21)
[2017-03-17] MEDS: CLINDAMYCIN 600 MG/NS 600 MG/50 ML IVPB IV SCH ×3 (01:34→17:29)
[2017-03-17] MEDS: AZACTAM 2 GM in NS 100 ML IV SCH ×3 (01:34→16:17)
[2017-03-17] MEDS: HUMULIN R SUBQ SCH ×6 (01:44→21:20)
[2017-03-17] MEDS: CARAFATE LIQUID PO SCH ×4 (01:45→20:31)
[2017-03-17] MEDS: ATROVENT NEB INH SCH ×6 (03:16→23:02)
[2017-03-17] MEDS: XOPENEX NEB INH SCH ×6 (03:16→23:02)
[2017-03-17 04:39] LABS: ALLEN TEST YES; BE 9.2 mmoll (-3.0-3.0); BLOOD TYPE ARTERIAL; DRAW SITE R RADIAL; O2(CT) 17.4 mL/dL (15.0-23.0); PO2(98.6) 119 mmHg (60-100); SAMPLE BLOOD; SAO2 99.3 % (95.0-100.0); SRATE 16 BPM; THB 12.7 g/dL (11.5-17.4); pH(98.6) 7.39 (7.35-7.45)
[2017-03-17 04:40] LABS: MODALITY BI PAP; PCO2(98.6) 60 mmHg (35-45)
[2017-03-17] MEDS: APRESOLINE PO SCH ×3 (05:32→20:31)
[2017-03-17 05:34] LABS: MANUAL DIFF NEEDED? NO
[2017-03-17] MEDS: ULTRAM PO PRN ×2 (05:34→16:29)
[2017-03-17 05:38] LABS: BASO% 0.6 % (0.0-0.8); EOS# 0.33 X1000 (0.0-0.7); EOS% 3.2 % (0.0-10.0); HEMATOCRIT 25.7 % (37.0-47.0); HEMOGLOBIN 8.3 g/dL (12.0-16.0); IMM GRAN# 0.03 X1000 (0.0-0.04); IMM GRAN% 0.3 % (0.0-0.5); LYMPH# 1.04 X1000 (1.2-3.4); LYMPH% 10.1 % (20.5-51.1); MCH 25.5 PG (27-31); MCHC 32.3 g/dL (33-37); MCV 78.8 FL (81-99); MONO# 0.98 X1000 (0.11-0.59); MONO% 9.5 % (1.7-9.3); MPV 10.5 FL (7.4-10.4); NEUT% 76.3 % (42.2-75.2); PLT 324 X1000 (130-400); RBC 3.26 XMIL (4.2-5.4)
[2017-03-17 05:58] LABS: MAGNESIUM 2.3 mg/dL (1.5-2.7)
[2017-03-17] MEDS: PERIACTIN PO SCH ×3 (06:15→16:17)
[2017-03-17] MEDS: SYNTHROID PO SCH (06:15)
[2017-03-17 07:12] LABS: CALCIUM 7.7 mg/dL (8.8-10.2); POTASSIUM 3.7 mmol/L (3.5-5.1)
--- NOTE | 2017-03-17 07:26 | Diag Imaging Result Doc PS360 ---
EXAM: CHEST-1 VIEW INDICATION: SOB TECHNIQUE: One view COMPARISON: 03/16/2017 FINDINGS: A right PICC line is in stable position. Inspiration is suboptimal similar to the previous study. Bilateral pleural effusions are essentially stable given differences in positioning. The chest is essentially stable, otherwise. IMPRESSION: Stable chest. Electronically signed by Ever Deng 03/17/2017 7:24 AM
[2017-03-17] MEDS: PULMICORT INH SCH ×2 (08:03→19:05)
[2017-03-17] MEDS: MUCOMYST 20% INH SCH ×2 (08:04→19:05)
[2017-03-17] MEDS: TOPROL XL PO SCH (08:19)
[2017-03-17] MEDS: LASIX IV SCH ×2 (08:19→20:31)
[2017-03-17] MEDS: CULTURELLE PO SCH ×2 (08:19→20:31)
[2017-03-17] MEDS: CENTRUM SILVER PO SCH (08:19)
[2017-03-17] MEDS: ICAR-C PO SCH ×2 (08:19→20:31)
[2017-03-17] MEDS: METAMUCIL POWDER PACKET PO SCH (08:20)
[2017-03-17 10:16] LABS: INR 1.19; PROTIME 12.6 Seconds (9.2-11.7)
[2017-03-17] MEDS: MONISTAT-7 VAG CREAM VAG SCH (10:21)
--- NOTE | 2017-03-17 13:33 | Diag Imaging Result Doc PS360 ---
EXAM: CHEST-2 VIEWS INDICATION: POST THORA INSP. EXPIR TECHNIQUE: 2 views (inspiratory/expiratory) COMPARISON: 03/17/2017 FINDINGS: There is no evidence of pneumothorax status post right thoracentesis. Despite aspirating 1500 mL of fluid from the right pleural space, there is still a significant amount of pleural fluid remains on the right. The left pleural effusion is approximately stable. Pulmonary venous congestion and interstitial edema is unchanged. Cardiac silhouette is stable. IMPRESSION: No evidence of pneumothorax status post right thoracentesis. Electronically signed by Ever Deng 03/17/2017 1:31 PM
--- NOTE | 2017-03-17 13:43 | Diag Imaging Result Doc PS360 ---
EXAM: THORACENTESIS W/IMAGE GUIDANCE INDICATION: Enlarging effusion TECHNIQUE: COMPARISON: None. FINDINGS: Risks, benefits, and alternatives were discussed with the patient and the patient's daughter and informed consent was obtained. The patient was prepped and draped in sterile fashion and local anesthesia was achieved with 1% lidocaine solution. Using ultrasound guidance, a large bore catheter was inserted into the right pleural space and 1500 mL of clear straw-colored serous fluid was aspirated. There were no known complications. A postprocedural chest radiograph showed no pneumothorax. IMPRESSION: Technically successful ultrasound-guided right thoracentesis. Electronically signed by Ever Deng 03/17/2017 1:41 PM
[2017-03-17] MEDS: LOVENOX SUBQ SCH (14:34)
[2017-03-17 14:41] LABS: TOTAL PROT BODY FLUID 3.4 g/dL
[2017-03-17 15:25] LABS: DIFF NEEDED? YES; MONOS 52 %; POLYS 48 %; SPECIMEN PLEURAL FLUID; WBC BF 399 /cumm
--- NOTE | 2017-03-17 15:32 | PROGRESS NOTE ---
DATE: 03/17/2017 SUBJECTIVE: Patient is just back from thoracentesis. Patient reports no pain in the site of the aspiration or shortness of breath. She denies any fever or chills. OBJECTIVE: Vital Signs: Temperature 97.8 degrees, heart rate 92, respiratory rate 15, blood pressure 123/55, O2 saturation 96% on 6 L nasal cannula. General Examination: This is a chronically ill-looking, very malnourished, 87-year-old female lying in bed, in no acute distress. HEENT: Head is normocephalic and atraumatic. Anicteric sclerae. Pale conjunctivae. Mucous membranes moist. Neck: Supple. No JVD noted. No carotid bruits. No lymphadenopathy. No thyromegaly. Cardiovascular: S1, S2 heard. No murmurs, gallops, or rubs. Respiratory: Clear bilaterally to auscultation. There is a little bit of reduced breath sounds in the right base. Patient is not using any accessory muscles or having work of breathing. Currently on 6 L nasal cannula. GI: Abdomen is soft, a little bit distended, but nontender to palpation. Bowel sounds present. No organomegaly. Extremities: No clubbing, cyanosis, or edema. Peripheral pulses present in both legs. Neurological: Patient alert and oriented x3. Moves 4 extremities. Cranial nerves 2-12 grossly normal. LABORATORY DATA: White cell count 10.34, hemoglobin 8.3, hematocrit 25.2, platelets 324, with ABG shows pH 7.39, pCO2 of 60, PO2 119. BMP is okay, with glucose 139 and calcium 7.7. ASSESSMENT AND PLAN: 1. Pelvic abscess related to diverticulitis. Patient currently on IV antibiotics, in this case, aztreonam since 02/26, so today is day #19, and clindamycin 02/23 which will be [address] Timmy from Infectious Disease is following this patient as well as Dr. Bae from Gastroenterology. 2. Cirrhosis, likely non alcoholic steatohepatitis, now with definitely less ascites, and she recently had a paracentesis. The patient's abdomen is a little bit distended but definitely no ascites noted. 3. Severe protein calorie malnutrition. Patient currently is on total parenteral nutrition and lipid. Prealbumin is low. The patient has been advised to increase the frequency of meals to every 2 hours. 4. Pulmonary edema with right pleural effusion. Patient just came from Radiology Department. She underwent right pleural effusion tap. They removed so far 1500 mL of pleural fluid. Now the patient is reporting doing fine and she did tolerate the procedure well. At this point, we will continue with the same management. 5. Hypercarbic hypoxemic respiratory failure. By now, the patient is requiring 6 L of oxygen by nasal cannula and BiPAP as needed. We will continue with Xopenex and Atrovent, and also budesonide. 6. Hyperglycemia. We have checked hemoglobin A1c and it is 5.0. That ruled out any diabetes. We will continue with sliding scale insulin. 7. Iron-deficiency anemia. The hemoglobin so far is in the range of 8.3-8.4. We will continue monitoring the numbers closely. 8. Diarrhea. So far stool studies did not show any pathogen involved. 9. Disuse myopathy. Physical Therapy has been consulted. We will see what they have to say. 10. Tobacco abuse. Aware. 11. Deep vein thrombosis prophylaxis with Lovenox. GI prophylaxis with Protonix. 12. Disposition. Patient is stable with oxygenation requiring 5 L of oxygen by nasal cannula but we are not doing any pressors or any other critical assistance for this patient, so will transfer this patient to [facility]. cc: Brody Mustafa MD
--- NOTE | 2017-03-17 15:49 | PROGRESS NOTE ---
DATE: 03/16/2017 SUBJECTIVE: 87-year-old lady is transferred to the ICU because of the pneumonia and she seems okay and not any acute distress but she does complain of some shortness of breath. OBJECTIVE: Vital Signs: Temperature 98.5 degrees, heart rate 98, respirations 22, blood pressure 116/57, O2 saturation 94% on 2 L. General: 87-year-old, frail lady but answering questions. HEENT: No scleral icterus. Conjunctival pallor present. Neck: Supple. Trachea midline. Heart: Normal first and second heart sounds. Lungs: Decreased breath sounds at both bases. Abdomen: No masses, nontender. Bowel sounds are present. Extremities: No peripheral edema. Neurological: Oriented in time and moves all extremities. LABORATORY DATA: ABG shows hypoxemia saturation 91%. H and H 8.8 and 27. BUN is slightly high at 47. Chest x-ray shows increasing pleural effusion bilateral but more on the right side. IMPRESSION: 1. Pelvic abscess related to diverticulitis. Continue intravenous antibiotic therapy. She is on clindamycin and aztreonam. 2. Nonalcoholic steatohepatitis and a history of hepatitis A, status post paracentesis. There is no infection in the fluid. 3. Severe protein calorie malnutrition. Continue TPN. 4. Bilateral pleural effusions. She is scheduled for ultrasound-guided thoracentesis tomorrow. 5. Hypoxemic respiratory insufficiency and she is on BiPAP and the patient will have some thoracenteses that should help. 6. Hyperlipidemia. 7. Iron-deficiency anemia. 8. Diarrhea and some dehydration. Her stool has been negative for C. diff. Still will watch carefully. 9. Myelopathy. 10. History of tobacco use. 11. Deep vein thrombosis prophylaxis. 12. GI prophylaxis on Protonix. It appears that the original problem does not seem to be significantly worse. We will watch the diarrhea carefully for development of C. difficile. Particularly she is on clindamycin however pulmonary state hopefully will improve with thoracentesis and keeping her fluid volume corrected appropriately. We will continue to follow. cc: MD MESSI Acevedo
[2017-03-17] MEDS: PROTONIX IV SCH (16:16)
[2017-03-17] MEDS: SODIUM CHLORIDE 0.9% INJ SCH (16:17)
--- NOTE | 2017-03-17 16:19 | PROGRESS NOTE ---
DATE: 03/17/2017 SUBJECTIVE: Patient is currently resting in bed. She is going down for chest X ray post thoracocentesis by the radiologist. The abdominal distention is getting slightly worse. She is eating poorly. She is having soft brown stool. She denies any nausea, vomiting, vomiting blood, or passing blood in the stools. She denies any fevers, rigors, or chills. OBJECTIVE: Vital signs: Temperature 97.8, pulse rate of 90, respiratory rate of 15, blood pressure 123/65, saturating 92% on 6 L nasal cannula. General Appearance: Thinly built, lying in bed, in no acute distress. HEENT: Mild pallor. No icterus. Nasal cannula in place. Neck: Supple. Abdomen: Distention noted. Bowel sounds are present. No guarding. Discomfort in the infraumbilical region. Extremities: Mild lower extremity edema noted. Neurologic: She is alert, awake, answering simple questions. LABS: Hemoglobin and hematocrit are 8.3 and 25.7, white count of 10.3, platelet count of 324,000, MCV of 78.8. INR 1.19, PT of 12.6, PTT of 31. PH of 7.39, pCO2 60, PO2 119, bicarb 32.1, lactate of 0.8. This ABG was done today on BiPAP of FiO2 of 60%. Sodium 140, potassium 3.7, chloride 99, bicarb 30, anion gap of 9, BUN 33, creatinine 1, glucose of 139, calcium is 7.7 , phosphorus 4.7, magnesium 2.3. She is status post thoracocentesis. They drained about 1500 mL of clear straw- colored serous fluid. The fluid studies are currently pending. Chest x-ray: No evidence of any pneumothorax. Status post right thoracocentesis. IMPRESSION AND PLAN: 1. Pelvic abscesses related diverticulitis complicated with ascites. Currently continue antibiotics per Dr. Warner. 2. Cirrhosis, unclear etiology. Will continue to watch her labs. 3. Ascites is reaccumulating and curbing her appetite and causing her decreased p.o. intake. We will plan for ascitic tap tomorrow. 4. Pleural effusion status post drainage about 1.5 L today by the radiologist. Will follow up on the fluid studies. 5. Hypercarbic hypoxemic respiratory insufficiency. Having her on BiPAP as needed. Being monitored by Dr. Coleman. 6. Anemia. Continue to follow. Continue the iron. 7. Diarrhea. Stool studies from a weeks ago were negative, other than positive Hemoccult. 8. Malnutrition she is on TPN and pureed diet with Ensure Clear supplementation. 9. Gastrointestinal prophylaxis with PPIs and deep vein thrombosis prophylaxis with Lovenox. 10. Prognosis is guarded. The patient is slowly going downhill with multisystem involvement with minimal improvement in her overall condition. Will continue with ongoing aggressive Treatment regimen. Further recommendations to follow pending the hospital course. 11. 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 In that regard we will consult the gynecology team and reconsult Dr. Bradford. She is a poor surgical candidate for any kind of intervention. Discussed with the patient's daughter and all questions were answered. cc: MD Dave Genao MD Leroy F. Harris, MD Mamoun I. Najjar, MD Dr. Harney John A. Shannon, MD MTDD
[2017-03-17] MEDS: TPN ELECTROLYTES 20 ML, MAGNESIUM SULFATE 5 MEQ, POTASSIUM CHLORIDE 20 MEQ, SODIUM PHOS... IV SCH ×8 (17:29)
--- NOTE | 2017-03-17 18:07 | PROGRESS NOTE ---
DATE: 03/17/2017 PRESENT ILLNESS: The patient is being treated for pelvic abscesses most likely secondary to diverticulitis. Patient has cirrhosis of the liver with ascites. She also has pleural effusions. MEDICATIONS: The patient has been on clindamycin and aztreonam for 3 weeks. PHYSICAL EXAMINATION: Vital Signs: Temperature is 98.8 degrees, pulse 104, respirations 24, blood pressure 134/51. General: This is an ill-appearing elderly female who is malnourished. Lungs had diminished breath sounds in the bases. Cardiovascular: Heart rate is regular. Abdomen: Slightly swollen with ascites. Neurologic: Patient is alert. She can move her extremities. LAB AND X-RAY: Chest x-ray shows right greater than left pleural effusion. Pleural fluid white blood cell count was 399. CBC shows a white count of 10,340, hemoglobin 8.3 and platelet count 324,000. Blood gases show a pH of 7.39, a PO2 of 119, pCO2 of 60, creatinine is 1.0, GFR is 52. ASSESSMENT AND PLAN: The patient has pelvic abscesses. My plan is to continue the patient's antibiotics and obtain a CAT scan tomorrow to see how the abscesses look. COMORBIDITIES: Include cirrhosis of the liver, malnutrition, hepatitis A, diverticulitis. cc: Ivan Warner MD MTDD
[2017-03-17] MEDS: LIPOSYN 20% 250 ML IV SCH (20:31)
--- NOTE | 2017-03-17 22:22 | CONSULTATION ---
DATE OF CONSULTATION: 03/17/2017 CONSULTING PHYSICIAN: Ever Baugh MD, [employer]. SUMMARY: Tarsha Pineda is an 87-year-old who is in the hospital with multiple problems, including pelvic abscesses felt to be from diverticulitis. She is having some stool-stained vaginal discharge. Her past history is significant for hysterectomy and she thinks her ovaries were removed at the same time. Radiological studies did not show any evidence of a gynecologic malignancy. Concern is for rectovaginal fistula. I did a pelvic examination which does show some stool-stained discharge. There is no evidence of any vaginal malignancies. I cannot palpate or visualize the fistula, so if there is one, it is probably very small. Unfortunately I have nothing to offer this patient for her possible fistula. We would need to refer her to [facility] for repair, but prior to referral she would need a diverting colostomy for at least 6 months and if there was not spontaneous closure of the fistula, then at that point, surgical intervention might be possible. Thank you for the consult, but unfortunately, I have nothing to offer in the care of this patient. cc: Ever Baugh MD
[2017-03-18] MEDS: HUMULIN R SUBQ SCH ×6 (00:50→23:31)
[2017-03-18] MEDS: AZACTAM 2 GM in NS 100 ML IV SCH ×3 (01:36→16:57)
[2017-03-18] MEDS: CLINDAMYCIN 600 MG/NS 600 MG/50 ML IVPB IV SCH ×3 (01:36→16:59)
[2017-03-18] MEDS: CARAFATE LIQUID PO SCH ×4 (01:39→20:48)
[2017-03-18] MEDS: XOPENEX NEB INH SCH ×6 (03:05→23:12)
[2017-03-18] MEDS: ATROVENT NEB INH SCH ×6 (03:05→23:12)
[2017-03-18] MEDS: APRESOLINE PO SCH ×3 (04:34→20:47)
[2017-03-18 04:54] LABS: ALLEN TEST YES; BE 10.6 mmoll (-3.0-3.0); BLOOD TYPE ARTERIAL; DRAW SITE R RADIAL; METHB 1.7 % (0.0-1.5); O2(CT) 12.1 mL/dL (15.0-23.0); PCO2(98.6) 29 mmHg (35-45); PO2(98.6) 197 mmHg (60-100); SAMPLE BLOOD; SAO2 99.5 % (95.0-100.0); SRATE 16 BPM; THB 8.6 g/dL (11.5-17.4)
[2017-03-18 04:55] LABS: MODALITY BI PAP; pH(98.6) 7.65 (7.35-7.45)
[2017-03-18 05:04] LABS: BASO% 0.8 % (0.0-0.8); EOS# 0.36 X1000 (0.0-0.7); EOS% 4.8 % (0.0-10.0); HEMATOCRIT 24.3 % (37.0-47.0); HEMOGLOBIN 7.6 g/dL (12.0-16.0); IMM GRAN# 0.05 X1000 (0.0-0.04); IMM GRAN% 0.7 % (0.0-0.5); LYMPH# 0.78 X1000 (1.2-3.4); LYMPH% 10.3 % (20.5-51.1); MANUAL DIFF NEEDED? YES; MCH 24.9 PG (27-31); MCHC 31.3 g/dL (33-37); MCV 79.7 FL (81-99); MONO# 0.63 X1000 (0.11-0.59); MONO% 8.3 % (1.7-9.3); MPV 10.6 FL (7.4-10.4); NEUT% 75.1 % (42.2-75.2); PLT 270 X1000 (130-400); RBC 3.05 XMIL (4.2-5.4)
[2017-03-18 05:16] LABS: POTASSIUM 3.2 mmol/L (3.5-5.1)
[2017-03-18 05:21] LABS: MAGNESIUM 2.2 mg/dL (1.5-2.7)
[2017-03-18 05:27] LABS: BANDS 2 % (0-1); EOS 2 % (1-10); LYMPHS 11 % (21-51); MONO 4 % (1-9); NRBC 1 % (0-0)
[2017-03-18 05:28] LABS: LARGE PLATELETS 1+
[2017-03-18 05:38] LABS: PREALBUMIN 9.2 mg/dL (20-40)
[2017-03-18] MEDS: SYNTHROID PO SCH (06:23)
[2017-03-18] MEDS: PERIACTIN PO SCH ×3 (06:23→17:03)
--- NOTE | 2017-03-18 07:21 | Diag Imaging Result Doc PS360 ---
EXAM: CHEST-1 VIEW HISTORY: SOB TECHNIQUE: Portable COMPARISON: 03/17/2017 FINDINGS: No change in the right-sided PICC line. There are diffuse bilateral infiltrates. Bilateral pleural effusions remain, moderate-sized on the right and small on the left. Heart is not enlarged. There is basilar atelectasis. IMPRESSION: No interval improvement in the pleural effusions and infiltrates. Pulmonary edema may in fact be slightly more pronounced on the current study.. Electronically signed by Tj Ivy 03/18/2017 7:19 AM
[2017-03-18] MEDS: MUCOMYST 20% INH SCH ×2 (07:47→19:33)
[2017-03-18] MEDS: PULMICORT INH SCH ×2 (07:48→19:33)
--- NOTE | 2017-03-18 08:58 | Diag Imaging Result Doc PS360 ---
EXAM: CT ABD/PELVIS W/PO AND IV CON HISTORY: pelvic abscesses TECHNIQUE: CT abdomen and pelvis with oral and intravenous contrast. Dose reduction protocol. COMPARISON: 03/04/2017 FINDINGS: There are small bilateral pleural effusions. These were present on the prior exam. There is bibasilar atelectasis and infiltrates with air bronchograms in the lower lobes. No interval improvement. Findings may be slightly more pronounced. There is a moderate amount of ascites similar to the prior exam. The liver is nodular. The spleen is not enlarged. Normal pancreas and adrenal glands. The gallbladder is distended. No adjacent inflammation or calcified stones. There is cortical thinning to the kidneys as well as scarring with scattered renal cysts. No hydronephrosis. No aortic aneurysm. Moderate atherosclerosis. The bowel loops are not dilated. There are scattered diverticula primarily in the distal descending and sigmoid colon. There are several small fluid collections within the pelvis. Several in the right pelvis are no longer present. Each of the fluid collections has decreased in size with the exception of one on the left which is similar in size to the prior exam measuring approximately 2.6 x 4.8 cm. A Garcia catheter has the urinary bladder decompressed. IMPRESSION: 1.Interval improvement in the multiple pelvic fluid collections/abscesses 2.Interval worsening in the bilateral lower lobe infiltrates and atelectasis with small pleural effusions. The pleural effusions are stable. 3.Stable ascites 4.Diverticulosis 5.Scarring to the kidneys with small cysts 6.Bowel loops are less distended on the current study than on the prior exam. Electronically signed by jT Ivy 03/18/2017 8:55 AM
[2017-03-18] MEDS: CULTURELLE PO SCH ×2 (09:06→20:47)
[2017-03-18] MEDS: METAMUCIL POWDER PACKET PO SCH (09:06)
[2017-03-18] MEDS: ICAR-C PO SCH ×2 (09:06→20:47)
[2017-03-18] MEDS: LASIX IV SCH ×2 (09:06→20:47)
[2017-03-18] MEDS: TOPROL XL PO SCH (09:06)
[2017-03-18] MEDS: CENTRUM SILVER PO SCH (09:06)
[2017-03-18] MEDS: MONISTAT-7 VAG CREAM VAG SCH (09:07)
--- NOTE | 2017-03-18 12:22 | PROGRESS NOTE ---
DATE: 03/18/2017 SUBJECTIVE: Patient reports breathing fine. She denies any fever or chills. She reports more abdominal distention. OBJECTIVE: VITAL SIGNS: Temperature 98.3, heart rate 94, respiratory rate 20, blood pressure 146/69, O2 saturation 95% on 6L nasal cannula. GENERAL: This is a chronically ill-looking, very malnourished, frail, 87-year-old female lying in bed in no acute distress. HEENT: Head is normocephalic and atraumatic. Anicteric sclerae. Pale conjunctivae. Mucous membranes moist. NECK: Supple. No JVD noted. No carotid bruit. No lymphadenopathy. No thyromegaly. CARDIOVASCULAR: S1 and S2 heard. No murmurs, gallops, or rubs. Regular rate and rhythm. RESPIRATORY: There are decreased breath sounds in the right base. Patient is not using any accessory muscles or having work of breathing. ABDOMEN: Soft. Definitely more distended when compared with yesterday. Nontender to palpation. Bowel sounds present but distant. No organomegaly. EXTREMITIES: No clubbing, cyanosis, or edema. Peripheral pulses are present in both legs. NEUROLOGICAL: Patient is alert and oriented x3. Moves all 4 extremities. Cranial nerves 2-12 are grossly normal. LABORATORY DATA: White cell count is 7.55, hemoglobin 7.6, hematocrit 24.3, and platelets 270,000 ABG shows pH 7.65, pCO2 of 29. BMP is remarkable for potassium of 3.2. ASSESSMENT AND PLAN: 1. Pelvic abscess related to diverticulosis and suspicion for possible vaginal fistula. Patient has been evaluated yesterday by Dr. Baugh from [facility] [employer] [facility]. Pelvic examination did show some stool-stained discharge, but no evidence of any vaginal malignancy. His recommendation is to have a diverting colostomy for at least 6 months and, if we still think that this patient might need surgery, she needs to be referred to [facility]. Also, this fistula can close spontaneously. At this point, [facility] [facility] [facility] is not able to provide any other options for this patient. The patient is being followed for this condition by Infectious Disease, Dr. Warner. She is on clindamycin and aztreonam for 3 weeks each. We are going to continue with the same management. 2. Recurrent pulmonary edema with right pleural effusion. Patient went to have a thoracentesis yesterday, where they removed 1.5 L of pleural fluid, but, unfortunately, x-ray is still showing some fluid there. Considering her liver cirrhosis with very low albumin, I suspect this condition is going to keep on going on. Pulmonary is following this patient. 3. Severe protein calorie malnutrition. The patient is on TPN. Prealbumin that was checked a few days ago was 9. Patient advised to increase the frequency of meals to every 2 hours. 4. 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 The patient has more ascites, so, according to Gastroenterology, she will need to have paracentesis done. 5. Hypercarbic hypoxemic respiratory failure. By now, the patient is requiring 5-6L of oxygen by nasal cannula. She was not on BiPAP during the last 24 hours. Will continue with Xopenex, Atrovent, and budesonide inhaler. 6. Iron deficiency anemia. The hemoglobin today has dropped from 8.3 to 7.6. Considering her age and comorbidities, I think this patient will need to be transfused 2 units of blood. 7. Disuse myopathy. Physical Therapy has been consulted and are working with this patient. 8. Tobacco abuse. Aware. DISPOSITION: The patient is going to be transferred to the 4th Floor, surgical floor. cc: Brody Mustafa MD
[2017-03-18] MEDS: LOVENOX SUBQ SCH (13:39)
--- NOTE | 2017-03-18 15:01 | PROGRESS NOTE ---
DATE: 03/18/2017 SUBJECTIVE: She is currently resting in bed. According to the patient, she is feeling a little better, but she continues to have poor oral intake, poor appetite. Her abdominal distention is present, is stabilized before. She denies any nausea, vomiting, vomiting blood , denies any blood in the stools. 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 She was seen by Dr. Baugh yesterday and, we really appreciate his consultation. There was no evidence of any kind of vaginal malignancy. This is likely secondary to complication from chronic diverticulitis and abscess formation. According to the note from Dr. Baugh, she would need a diverting colostomy, but the patient has been a poor candidate for any kind of surgical intervention for some time and is being followed by Dr. Carlos Bradford. No fevers reported over the last 24 hours. OBJECTIVE: Vital Signs: Temperature 98.3 degrees, pulse of 94, respiratory 18, blood pressure 142/69, saturating 90% on 6 L nasal cannula. General Appearance: Thinly built, lying in bed, in no acute distress. HEENT: Pale conjunctivae. No icterus. Nasal cannula in place. Saturating 90% 6 liters of oxygen. Neck is supple. Abdomen: There is distention noted. Bowel sounds are very mild. Mild discomfort in the lower abdomen. Bowel sounds are present. Extremities: No cyanosis, clubbing, and she has a urinary catheter. Neurologic: She was awake and alert. Answers questions. Extremities: No cyanosis, clubbing. Lack of muscle mass of the lower extremities. LABORATORY DATA: Her hemoglobin and hematocrit is 7.6, 24.3, white count of 7.5 , platelet count of 270,000. MCV of 79.7, INR 1.19. PT from 12.6. ABGs: pH of 7.65, pCO2 of 29, PO2 of 197, FiO2 50% on BiPAP this morning. Sodium is 138, potassium 3.2 chloride 98, bicarb 32, anion gap of 8. BUN of 50, creatinine 1. Calcium is 8. Magnesium is 2.2, phosphorus 3.8, AST 50. Prealbumin of 9.2. Her pleural fluid showed leukocyte count of 399 with 48% polymorphic neutrophils. LDH is 70. Amylase 16. AFB smear is no AFB seen. Fungal smear: No fungus seen. Abdominal and pelvic CT scan done this morning which showed 1. Interval improvement in the multiple pelvic fluid collection abscesses. 2. Interval worsening of the bilateral lower lobe infiltrates and atelectasis with small pleural effusions. 3. Stable ascites. 4. Diverticulosis. 5. Bowel loops are less distended when compared to previous CT scan. IMPRESSION AND PLAN: 1. Pelvic abscesses secondary to diverticulitis complicated with rectovaginal fistula and ascites. We will continue with antibiotics per the primary team and Dr. Warner. The CT scan looks better as compared about decreasing size of these abscesses. She has stable ascites per the CT scan. 2. Pneumonia with pleural effusion and lung atelectasis, currently on antibiotics. We will evaluate Dr. Warner and Dr. Coleman's views after they review the pleural fluid studies. 3. Cirrhosis of unclear etiology. Continue to watch her labs. 4. Lung atelectasis. We will start her incentive spirometry at bedside. 5. Ascites. If ascites gets worse, then we may need to redo the paracentesis. 6. Anemia, continue to follow and continue the iron. 7. Hypercarbic hypoxic respiratory insufficiency being followed Dr. Coleman. 8. Malnutrition. Total Parenteral Nutrition and Ensure Clear, She still has poor appetite. 9. Deconditioning. She is currently working with physical therapist. I discussed the plan of care with the patient and family. cc: MD Ivan Matta MD John A. Shannon, MD Cesar Garcia-Rodriguez, MD Alexis R. Penot, MD Manish Arora, MD MTDD
[2017-03-18] MEDS: PROTONIX IV SCH (16:58)
[2017-03-18] MEDS: SODIUM CHLORIDE 0.9% INJ SCH (16:58)
[2017-03-18] MEDS ORDERED: TPN ELECTROLYTES 20 ML, MAGNESIUM SULFATE 5 MEQ, POTASSIUM CHLORIDE 20 MEQ, SODIUM PHOS... IV SCH ×8 (18:30)
[2017-03-18] MEDS: LIPOSYN 20% 250 ML IV SCH (20:47)
[2017-03-18] MEDS: ULTRAM PO PRN (23:15)
[2017-03-19] MEDS: CARAFATE LIQUID PO SCH ×4 (01:55→21:31)
[2017-03-19] MEDS: AZACTAM 2 GM in NS 100 ML IV SCH ×3 (01:56→17:03)
[2017-03-19] MEDS: CLINDAMYCIN 600 MG/NS 600 MG/50 ML IVPB IV SCH ×3 (03:26→19:49)
[2017-03-19] MEDS: HUMULIN R SUBQ SCH ×6 (03:28→21:29)
[2017-03-19] MEDS: ATROVENT NEB INH SCH ×6 (03:59→23:35)
[2017-03-19] MEDS: XOPENEX NEB INH SCH ×6 (03:59→23:35)
[2017-03-19 04:01] LABS: ALLEN TEST YES; BE 12.1 mmoll (-3.0-3.0); BLOOD TYPE ARTERIAL; DRAW SITE R RADIAL; METHB 0.6 % (0.0-1.5); O2(CT) 10.8 mL/dL (15.0-23.0); PCO2(98.6) 43 mmHg (35-45); PO2(98.6) 67 mmHg (60-100); SAMPLE BLOOD; SAO2 97.7 % (95.0-100.0); pH(98.6) 7.53 (7.35-7.45)
[2017-03-19 04:02] LABS: MODALITY CANNULA
[2017-03-19] MEDS: APRESOLINE PO SCH ×3 (05:45→21:31)
[2017-03-19] MEDS: PERIACTIN PO SCH ×4 (05:45→17:02)
[2017-03-19] MEDS: SYNTHROID PO SCH ×2 (05:45→06:11)
[2017-03-19 06:07] LABS: BASO% 1.1 % (0.0-0.8); EOS# 0.31 X1000 (0.0-0.7); EOS% 4.1 % (0.0-10.0); HEMOGLOBIN 7.7 g/dL (12.0-16.0); IMM GRAN# 0.04 X1000 (0.0-0.04); IMM GRAN% 0.5 % (0.0-0.5); LYMPH# 1.05 X1000 (1.2-3.4); MANUAL DIFF NEEDED? NO; MCH 25.2 PG (27-31); MCHC 32.1 g/dL (33-37); MCV 78.4 FL (81-99); MONO# 0.77 X1000 (0.11-0.59); MONO% 10.3 % (1.7-9.3); MPV 10.9 FL (7.4-10.4); PLT 312 X1000 (130-400); RBC 3.06 XMIL (4.2-5.4)
[2017-03-19 06:10] LABS: AGAP 7; BUN 45 mg/dL (8-22); CALCIUM 8.1 mg/dL (8.8-10.2); CHLORIDE 97 mmol/L (98-107); COSMO 283; GOT 80 U/L (10-30); MAGNESIUM 2.3 mg/dL (1.5-2.7); PREALBUMIN 11.3 mg/dL (20-40); SODIUM 136 mmol/L (136-145); TCO2 32 mmol/L (25-35); TRIGLYCERIDES 66 mg/dL (35-135)
--- NOTE | 2017-03-19 06:29 | Diag Imaging Result Doc PS360 ---
EXAM: CHEST-1 VIEW HISTORY: SOB TECHNIQUE: Portable AP COMPARISON: 03/18/2017 FINDINGS: No change in the right-sided PICC line. There is a small to moderate-sized right-sided pleural effusion. The left pleural effusion appears smaller. Dense bilateral infiltrates remain. No definite improvement. Heart is not enlarged. IMPRESSION: The left pleural effusion appears smaller than on the prior exam, but there has been no interval improvement in the dense bilateral infiltrates or in the right-sided pleural effusion. Electronically signed by Tj Ivy 03/19/2017 6:26 AM
[2017-03-19] MEDS: MUCOMYST 20% INH SCH ×2 (07:36→19:55)
[2017-03-19] MEDS: PULMICORT INH SCH ×2 (07:37→19:55)
[2017-03-19] MEDS: CENTRUM SILVER PO SCH (09:00)
[2017-03-19] MEDS: ICAR-C PO SCH ×2 (09:00→21:31)
[2017-03-19] MEDS: LASIX IV SCH ×2 (09:00→21:30)
[2017-03-19] MEDS: TOPROL XL PO SCH (09:00)
[2017-03-19] MEDS: METAMUCIL POWDER PACKET PO SCH (09:00)
[2017-03-19] MEDS: CULTURELLE PO SCH ×2 (09:01→21:31)
[2017-03-19] MEDS: LIPOSYN 20% 250 ML IV SCH (11:47)
[2017-03-19] MEDS: TPN ELECTROLYTES 20 ML, MAGNESIUM SULFATE 5 MEQ, POTASSIUM CHLORIDE 20 MEQ, SODIUM PHOS... IV SCH ×8 (11:47)
[2017-03-19] MEDS: LOVENOX SUBQ SCH (15:09)
[2017-03-19] MEDS: MONISTAT-7 VAG CREAM VAG SCH (15:09)
--- NOTE | 2017-03-19 16:24 | PROGRESS NOTE ---
DATE: 03/19/2017 PRESENT ILLNESS: The patient is being treated for pelvic abscesses most likely secondary to diverticulitis. On the latest CAT scan the abscesses are getting smaller. Unfortunately the patient's fluid buildup in her abdomen is recurring and also in the pleural spaces there is accumulating fluid and associated with this is basilar atelectasis and/or pneumonia. MEDICATIONS: The patient is been on clindamycin and aztreonam now for 23 days. PHYSICAL EXAMINATION: Vital Signs: Temperature is 98.2 degrees, pulse 88, respirations 19, blood pressure 126/47. General: This is an ill-appearing malnourished elderly female. She is in no acute distress. Lungs: Diminished breath sounds at the bases. Cardiovascular: Heart rate was regular. Abdomen: Filling up again with ascites. It is more swollen but it is not tender. Neurologic: Today the patient was confused. She can move her extremities. LAB AND X-RAY: The patient's CBC today shows a white count of 7490, hemoglobin 7.7 and platelet count 312,000. Patient's blood gases show a pH of 7.53, PO2 of 67, pCO2 of 43. Creatinine 0.8. GFR is greater than 60. Chest x-ray shows bilateral infiltrates and pleural effusions. The peritoneal and pleural fluid cultures are negative. CT scan of the abdomen and pelvis showed that the abscesses were better as mentioned above, they are getting smaller but there was worse bibasilar infiltrate and atelectasis. ASSESSMENT AND PLAN: The patient has pelvic abscesses and bibasilar infiltrates and/or atelectasis. In any event, I plan to continue the patient on current antibiotics of clindamycin, aztreonam till the abscess is clear on CT scan. COMORBIDITIES: Include cirrhosis of the liver, malnutrition, hepatitis A and diverticulitis. cc: Ivan Warner MD
[2017-03-19] MEDS: PROTONIX IV SCH (17:02)
[2017-03-19] MEDS: SODIUM CHLORIDE 0.9% INJ SCH (17:03)
--- NOTE | 2017-03-19 19:00 | PROGRESS NOTE ---
DATE: 03/19/2017 SUBJECTIVE: The patient is feeling fine. Denies any fever or chills. Mild abdominal distention reported but no abdominal pain. OBJECTIVE: Vital Signs: Temperature 99.0 degrees, heart rate 95, respiratory rate 20, blood pressure 128/46, and O2 saturation 95% on nasal cannula at 5 L/minute. General Examination: This is a chronically ill-appearing, very malnourished and frail, 87-year-old female lying in bed, in no acute distress. HEENT: Head is normocephalic, atraumatic. Anicteric sclerae. Pale conjunctivae. Mucous membranes moist. Neck: Supple. No JVD noted. No carotid bruits. No lymphadenopathy. No thyromegaly. Cardiovascular: S1, S2 heard. No murmurs, gallops, or rubs. Regular rate and rhythm. Respiratory Examination: Decreased breath sounds globally but most noticeable in the right base. The patient is not using any accessory muscles or having work of breathing. Abdomen: Soft. Abdominal distention same compared with yesterday. Nontender to palpation. Bowel sounds present. No organomegaly. Extremities: No clubbing, cyanosis, or edema. Peripheral pulses present in both legs. Neurological Examination: Patient alert and oriented x3. Moves 4 extremities. LABORATORY DATA: White cell count 7.49, hemoglobin 7.7, hematocrit 24.0, platelets 312,000. ABG shows a pH 7.53, pCO2 43, normal BMP, prealbumin 11.3. ASSESSMENT AND PLAN: 1. Pelvic abscess related to diverting colostomy with vaginal fistula. The plan for this patient is to continue with antibiotics. Patient has been evaluated by [facility] [employer], Dr. Baugh. They do not plan to do any surgical procedure for her. As per Dr. Warner from Infectious Disease, apparently this patient will need to be on at least 6 or 7 weeks of antibiotics. Currently she is on clindamycin and aztreonam. We are going to continue same management. 2. Recurrent pulmonary edema with right pleural effusion. She had a paracenteses 2 days ago. The x-ray showed that the left pleural effusion appears to be smaller but the bilateral infiltrates are still there. 3. Severe protein calorie malnutrition. Patient is on TPN. Patient's albumin was 9 recently. We will continue with the same management. 4. 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 Patient has the same abdominal distention as yesterday. Today Dr. Bae in his note does not mention possible paracentesis in the near future. We will continue following his recommendations. 5. Acute hypoxic respiratory failure. The patient is requiring still high amounts of oxygen, in this case 5 L of oxygen by nasal cannula. The patient has not been on BiPAP for the last 48 hours. We will continue with nebulizations p.r.n. for shortness of breath. 6. Iron deficiency anemia. Hemoglobin is 7.8 today. blood transfusion. 7. Disuse myopathy. Physical Therapy working with the patient. Patient able to sit in the chair for 2 hours. I have encouraged her to continue doing what she is doing. cc: Brody Mustafa MD MTDD
[2017-03-20] MEDS: AZACTAM 2 GM in NS 100 ML IV SCH ×3 (01:13→18:31)
[2017-03-20] MEDS: HUMULIN R SUBQ SCH ×6 (01:20→22:59)
[2017-03-20] MEDS: CLINDAMYCIN 600 MG/NS 600 MG/50 ML IVPB IV SCH ×3 (02:21→17:04)
[2017-03-20] MEDS: CARAFATE LIQUID PO SCH ×4 (02:22→22:59)
[2017-03-20] MEDS: ATROVENT NEB INH SCH ×6 (03:35→23:01)
[2017-03-20] MEDS: XOPENEX NEB INH SCH ×6 (03:35→23:01)
[2017-03-20 04:45] LABS: ALLEN TEST YES; BE 11.5 mmoll (-3.0-3.0); BLOOD TYPE ARTERIAL; DRAW SITE R RADIAL; METHB 1.3 % (0.0-1.5); O2(CT) 10.8 mL/dL (15.0-23.0); PCO2(98.6) 41 mmHg (35-45); PO2(98.6) 62 mmHg (60-100); SAMPLE BLOOD; SAO2 95.7 % (95.0-100.0); THB 8.2 g/dL (11.5-17.4); pH(98.6) 7.54 (7.35-7.45)
[2017-03-20 04:46] LABS: MODALITY CANNULA
[2017-03-20] MEDS: APRESOLINE PO SCH ×3 (06:07→20:20)
[2017-03-20] MEDS: PERIACTIN PO SCH ×3 (06:07→17:03)
[2017-03-20] MEDS: SYNTHROID PO SCH (06:07)
[2017-03-20 06:30] LABS: BASO% 0.8 % (0.0-0.8); EOS# 0.28 X1000 (0.0-0.7); EOS% 3.7 % (0.0-10.0); HEMATOCRIT 25.4 % (37.0-47.0); HEMOGLOBIN 8.1 g/dL (12.0-16.0); IMM GRAN# 0.05 X1000 (0.0-0.04); IMM GRAN% 0.7 % (0.0-0.5); LYMPH# 0.83 X1000 (1.2-3.4); LYMPH% 10.8 % (20.5-51.1); MANUAL DIFF NEEDED? YES; MCHC 31.9 g/dL (33-37); MCV 78.4 FL (81-99); MONO# 0.89 X1000 (0.11-0.59); MONO% 11.6 % (1.7-9.3); MPV 10.5 FL (7.4-10.4); NEUT% 72.4 % (42.2-75.2); PLT 317 X1000 (130-400); RBC 3.24 XMIL (4.2-5.4)
[2017-03-20 06:54] LABS: MAGNESIUM 2.3 mg/dL (1.5-2.7)
[2017-03-20 07:03] LABS: CALCIUM 7.9 mg/dL (8.8-10.2); POTASSIUM 3.2 mmol/L (3.5-5.1)
--- NOTE | 2017-03-20 07:10 | PROGRESS NOTE ---
DATE: 03/20/2017 SUBJECTIVE: The patient is doing about the same. She denies any kind of major issues. OBJECTIVE: Vital Signs: Patient is currently afebrile. Her vital signs are stable. General: No acute distress. Cardiovascular: Regular rate and rhythm. Lungs grossly clear. Abdomen Soft, nontender at this time. She is mildly distended which appears to be essentially the same from previous days. LABORATORY: White blood cell count 7, hematocrit 25, platelet count 317,000. Remainder of labs reviewed. ASSESSMENT AND PLAN: An 87-year-old female with multiple medical comorbidities, cirrhosis, now with colovaginal fistula. 1. Multiple medical comorbidities currently being managed by the hospitalist service. 2. Cirrhosis currently being managed by the hospitalist service. This makes the patient a poor operative candidate. 3. Colovaginal fistula. At this time, would recommend to continue nonoperative care. Her risks for procedure likely elevated given her cirrhosis. We will discuss with Dr. Bradford again at a later date but, for right now, we will follow her. cc: Phillip Haas MD [facility]
[2017-03-20 07:16] LABS: BANDS 6 % (0-1); HYPOCHROM 1+; LYMPHS 14 % (21-51); MONO 8 % (1-9)
[2017-03-20] MEDS: PULMICORT INH SCH ×2 (08:06→19:10)
[2017-03-20] MEDS: MUCOMYST 20% INH SCH ×2 (08:07→19:10)
--- NOTE | 2017-03-20 08:10 | Diag Imaging Result Doc PS360 ---
EXAM: CHEST-1 VIEW INDICATION: SOB TECHNIQUE: One view COMPARISON: 03/19/2017 FINDINGS: Right PICC line is in stable position. Small to moderate-sized right pleural effusion is stable. Bilateral infiltrates, worse on the right, are essentially stable and probably represent edema. No new consolidation is identified. Cardiac silhouette is stable. IMPRESSION: Stable chest. Electronically signed by Ever Deng 03/20/2017 8:08 AM
[2017-03-20] MEDS: TOPROL XL PO SCH (09:42)
[2017-03-20] MEDS: METAMUCIL POWDER PACKET PO SCH (09:42)
[2017-03-20] MEDS: CENTRUM SILVER PO SCH (09:43)
[2017-03-20] MEDS: ICAR-C PO SCH ×2 (09:44→20:20)
[2017-03-20] MEDS: LASIX IV SCH ×2 (09:44→20:18)
[2017-03-20] MEDS: CULTURELLE PO SCH ×2 (09:45→20:20)
[2017-03-20] MEDS: MONISTAT-7 VAG CREAM VAG SCH (09:46)
[2017-03-20] MEDS: LIPOSYN 20% 250 ML IV SCH (11:28)
[2017-03-20] MEDS: TPN ELECTROLYTES 20 ML, MAGNESIUM SULFATE 5 MEQ, POTASSIUM CHLORIDE 20 MEQ, SODIUM PHOS... IV SCH ×8 (11:28)
[2017-03-20] MEDS: ULTRAM PO PRN (11:28)
[2017-03-20] MEDS ORDERED: POTASSIUM CHLORIDE 60 MEQ in NS 500 ML IV ONE (13:00)
[2017-03-20] MEDS: LOVENOX SUBQ SCH (14:22)
--- NOTE | 2017-03-20 14:38 | PROGRESS NOTE ---
DATE: 03/20/2017 SUBJECTIVE: Patient reports feeling fine. The patient still reports having some abdominal pain and abdominal distention. She reports that tramadol that she is getting is not controlling the pain. OBJECTIVE: Vital Signs: Temperature 97.3 degrees, heart rate 86, respiratory rate 18, blood pressure 140/62. O2 saturation 96% on Venturi mask. General: This is a chronically ill- appearing, very malnourished and frail 87-year-old female lying in bed in no acute distress. HEENT: Head is normocephalic and atraumatic. Anicteric sclerae and pale conjunctivae. Mucous membranes moist. Neck supple. No JVD noted. No carotid bruits. No lymphadenopathy. No thyromegaly. Cardiovascular: S1, S2 heard. No murmurs, gallops, or rubs. Regular rate and rhythm. Respiratory: Decreased breath sounds globally with coarse breath sounds most noticeable in the right base. Patient is not using any accessory muscles or having work of breathing. Abdomen is soft. There abdominal distention that is the same when compared with yesterday. Nontender to palpation. Bowel sounds present. No organomegaly. Extremities: No clubbing, cyanosis, or edema. Peripheral pulses present in both legs. Neurologic: Patient alert and oriented x3. Moves 4 extremities. LABORATORY DATA: White cell count 7.65, hemoglobin 8.1, hematocrit 25.4, platelets 317,000. ABG shows pH of 7.54 with pCO2 of 41 and BMP remarkable for potassium that is 3.2. ASSESSMENT AND PLAN: 1. Pelvic abscess related to diverticulitis with vaginal fistula. Plan from General Surgery is to continue with IV antibiotics. The patient has been on 3 weeks of aztreonam and clindamycin. From a surgical standpoint, no surgical approach recommended and, also from [facility], Dr. Baugh, he also does not recommend any surgery because of the high morbidity on this patient. Dr. Warner is also following this patient and my understanding is that this patient may need like 6-7 weeks of antibiotics. As we mentioned before, patient is on clindamycin and aspirin. We will continue with the same management. 2. Recurrent pulmonary edema with pleural effusion. Patient had a thoracentesis 3 days ago but the is showing some pleural effusion. It is smaller when compared with previous days. 3. Severe protein calorie malnutrition. Patient is on total parenteral nutrition and we will continue with the same management. 4. 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 The patient has the same abdominal distention as yesterday. GI is following this patient. We will see if this patient needs paracentesis. 5. Acute hypoxic respiratory failure. Oxygen needs were getting higher last night. Now, she is requiring to be on a Venturi mask. We will continue with the same management. 6. Iron-deficiency anemia. Hemoglobin is 7.8 today. If the hemoglobin continues to drop, we will consider blood transfusion. 7. Diffuse myopathy. The patient is very weak and physical therapy is working with her. We had a long conversation with the family and because of the length of hospitalization in her case, 27 days, they are thinking about withdrawal of care some time because patient is feeling tired and, unfortunately, because of these many comorbidities she is not improving as we were expecting. The daughter, who is at bedside, is supposed to talk with the rest of her family who is coming to see her, and they will let me know if they finally decide for withdrawal of care or not. In the meantime, we will continue with the same management and as per specific requests from the patient's family will change the status from DNR LEVEL 2 to DNR LEVEL 1 because the patient specifically stated she does not want to be resuscitated. She does not want to have any measures that will prolong life. cc: Brody Mustafa MD
[2017-03-20] MEDS: PROTONIX IV SCH (17:04)
[2017-03-20] MEDS: SODIUM CHLORIDE 0.9% INJ SCH (17:04)
--- NOTE | 2017-03-20 18:11 | PROGRESS NOTE ---
DATE: 03/20/2017 SUBJECTIVE: Patient resting in bed. She complains of shortness of breath, abdominal distention, abdominal pain, she has worsening ascites. She denies any fevers rigors or chills. She has been on Ventimask with shortness of breath. She denies any vomiting or passing blood in the stools. OBJECTIVE: Vital signs: Temperature of 97.2 degrees, pulse of 91, respiratory 18, blood pressure 136/50, saturating 95% on Ventimask in liters. General appearance: Thinly built lying in bed and with a mask noted. HEENT: No icterus, mass noted. Neck: Is supple. Abdomen: Has distention noted, positive ascites, bowel sounds and no guarding, rebound, discomfort at the periumbilical region. Extremities: No cyanosis, clubbing. Neuro: She is alert, awake, oriented. LABS: Her hemoglobin and hematocrit is 8.1, 25, white count of 7.65, platelet count of 317,000, MCV of 78.4. Sodium 138, potassium 3.2, chloride 99, bicarb 32, anion gap 7, BUN of 42, creatinine 0.9, glucose of 141, calcium 7.9, phosphorus 3.9, magnesium 2.3, pre- albumin 11.3. IMPRESSION AND PLAN: 1. Shortness of breath, abdominal distention and worsening ascites. Will schedule for ultrasound-guided paracentesis tomorrow with the radiologist. We will road monkey some 25 g of albumin tomorrow along with paracentesis. 2. Liver, pelvic abscesses secondary to diverticulitis and rectovaginal fistula. General surgery is following. She continues on IV antibiotics. She is a poor surgical candidate for any kind of intervention. Recommended per the gynecology team and surgical team. 3. Recurrent pulmonary edema, pleural effusions. She is being followed Dr. Coleman. For protein- calorie malnutrition she is on TPN and oral nutrition. 4. Cirrhosis unclear etiology, may be contributing to ascites on top of pelvic abscesses which may be contributing as well. 5. Anemia. Will continue follow, transfuse as needed. 6. Gastrointestinal prophylaxis PPIs. Continue low sodium diet less than 2g in 24 hours. 7. Continue encourage the patient to take Ensure 3-4 cans per day. 8. Further recommendation pending hospital stay. cc: James MD Dr. Jared Bae Dr.
[2017-03-20] MEDS: MORPHINE IV PRN (20:19)
[2017-03-21] MEDS: AZACTAM 2 GM in NS 100 ML IV SCH ×3 (00:52→17:48)
[2017-03-21] MEDS: HUMULIN R SUBQ SCH ×6 (01:44→20:24)
[2017-03-21] MEDS: CLINDAMYCIN 600 MG/NS 600 MG/50 ML IVPB IV SCH ×3 (02:08→19:04)
[2017-03-21] MEDS: CARAFATE LIQUID PO SCH ×4 (02:10→20:45)
[2017-03-21] MEDS: MORPHINE IV PRN ×2 (02:13→18:15)
[2017-03-21] MEDS: ATROVENT NEB INH SCH ×6 (03:05→23:10)
[2017-03-21] MEDS: XOPENEX NEB INH SCH ×6 (03:05→23:10)
[2017-03-21] MEDS: APRESOLINE PO SCH ×3 (04:08→20:45)
[2017-03-21] MEDS: PERIACTIN PO SCH ×3 (06:15→17:47)
[2017-03-21] MEDS: SYNTHROID PO SCH (06:15)
[2017-03-21 06:34] LABS: BASO% 1.1 % (0.0-0.8); EOS# 0.49 X1000 (0.0-0.7); EOS% 6.6 % (0.0-10.0); HEMATOCRIT 26.5 % (37.0-47.0); IMM GRAN# 0.04 X1000 (0.0-0.04); IMM GRAN% 0.5 % (0.0-0.5); LYMPH# 1.02 X1000 (1.2-3.4); LYMPH% 13.6 % (20.5-51.1); MANUAL DIFF NEEDED? NO; MCH 26.1 PG (27-31); MCHC 30.2 g/dL (33-37); MCV 86.6 FL (81-99); MONO# 0.79 X1000 (0.11-0.59); MONO% 10.6 % (1.7-9.3); MPV 10.5 FL (7.4-10.4); NEUT% 67.6 % (42.2-75.2); PLT 296 X1000 (130-400); RBC 3.06 XMIL (4.2-5.4)
[2017-03-21 06:36] LABS: INR 1.15; PROTIME 12.2 Seconds (9.2-11.7); PTT 30.8 Seconds (22.0-36.0)
[2017-03-21] MEDS ORDERED: ALBUMIN 25% IV ONE (08:00)
--- NOTE | 2017-03-21 08:19 | Diag Imaging Result Doc PS360 ---
EXAM: CHEST-1 VIEW INDICATION: SOB TECHNIQUE: One view COMPARISON: 03/20/2017 FINDINGS: Right PICC line is stable. There has been interval worsening of the right lung infiltrate and increase in the right pleural effusion. Milder infiltrate and smaller effusion on the left is also slightly worse. Otherwise, no new consolidations are appreciated. Cardiac silhouette is stable. IMPRESSION: Interval worsening. Electronically signed by Ever Deng 03/21/2017 8:17 AM
[2017-03-21 08:32] LABS: MAGNESIUM 2.2 mg/dL (1.5-2.7)
[2017-03-21 08:34] LABS: AGAP 9; BUN 40 mg/dL (8-22); CALCIUM 8.4 mg/dL (8.8-10.2); CHLORIDE 101 mmol/L (98-107); COSMO 294; POTASSIUM 4.3 mmol/L (3.5-5.1); SODIUM 142 mmol/L (136-145); TCO2 32 mmol/L (25-35)
[2017-03-21] MEDS: MUCOMYST 20% INH SCH ×2 (08:37→19:00)
[2017-03-21] MEDS: PULMICORT INH SCH ×2 (08:37→19:00)
[2017-03-21] MEDS: CULTURELLE PO SCH ×3 (09:01→20:45)
[2017-03-21] MEDS: CENTRUM SILVER PO SCH ×2 (09:01→12:39)
[2017-03-21] MEDS: LASIX IV SCH ×3 (09:02→20:46)
[2017-03-21] MEDS: ICAR-C PO SCH ×3 (09:02→20:45)
[2017-03-21] MEDS: TOPROL XL PO SCH ×2 (09:03→12:39)
[2017-03-21] MEDS: METAMUCIL POWDER PACKET PO SCH ×2 (09:03→12:39)
[2017-03-21] MEDS: MONISTAT-7 VAG CREAM VAG SCH (09:03)
[2017-03-21] MEDS: LIPOSYN 20% 250 ML IV SCH (12:37)
[2017-03-21] MEDS: TPN ELECTROLYTES 20 ML, MAGNESIUM SULFATE 5 MEQ, POTASSIUM CHLORIDE 20 MEQ, SODIUM PHOS... IV SCH ×8 (12:38)
[2017-03-21] MEDS ORDERED: D10W 1,000 ML IV SCH (14:20)
--- NOTE | 2017-03-21 15:26 | PROGRESS NOTE ---
DATE: 03/21/2017 SUBJECTIVE: Patient reports feeling fine. No abdominal pain. There is still abdominal distention that is getting slowing be worse. She reports good relief after she started receiving morphine. OBJECTIVE: Vital Signs: Temperature 99.1 degrees, heart rate 91, respiratory rate 20, blood pressure 151/64, O2 saturation 94% on Venturi mask 15 L/minute. General: This is a chronically ill appearing, very malnourished and frail, 87-year-old female lying in bed, in no acute distress. HEENT: Head is normocephalic, atraumatic. Neck: Supple. No JVD noted. No carotid bruits. Cardiovascular: S1, S2 heard. No murmurs, gallops, or rubs. Regular rate and rhythm. Respiratory: Decreased breath sounds globally with coarse breath sounds in the right base. The patient is not using any accessory muscles or having work of breathing. Abdomen: Soft, nontender to palpation. Bowel sounds present. No organomegaly. Extremities: No clubbing, cyanosis, or edema. Peripheral pulses present in both legs. Neurological: Patient is alert and oriented x3. Moves 4 extremities. LABORATORY DATA: Reviewed. ASSESSMENT AND PLAN: 1. Pelvic abscess related to diverticulitis with vaginal fistula. The plan per general surgery is to continue with IV antibiotics, in this case clindamycin and aztreonam, actually for more than 3 weeks. Surgical option to fix this problem is unfortunately not an option for this patient. At this point, we will continue with the same antibiotic management. We will follow recommendation from Dr. Warner, infectious disease, who is following this patient as well. 2. Recurrent pulmonary edema and pleural effusion. The x-ray is still showing pleural effusion, although the last 1 that this patient had removal like 1.5 L of pleural fluid. At this point, we will continue watching this patient closely. 3. Severe protein calorie malnutrition. Patient is severely malnourished. Patient is on total parenteral nutrition. We will continue with the same management. 4. 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 The patient is stable. GI is planning to possibly do a paracenteses if abdominal pain continues to get worse. 5. Acute hypoxemic respiratory failure. Oxygen needs are getting higher and now requiring Ventimask at 15 L/minute. 6. Iron-deficiency anemia. Hemoglobin is stable. We will continue with the same management. 7. Disuse myopathy. Patient is very weak and physical therapy is working with her. 8. Overall this patient is not having any progress but is not getting worse. At this time I to plan is to continue with the same management. Apparently yesterday they were about to decide for withdrawal of care of this patient by now we just changed the status to DNR level 1 and will continue with the same management until family says they want to have withdrawal of care. Will continue following this patient closely. cc: Brody Mustafa MD
[2017-03-21] MEDS: LOVENOX SUBQ SCH (15:50)
[2017-03-21] MEDS: PROTONIX IV SCH (17:47)
[2017-03-21] MEDS: SODIUM CHLORIDE 0.9% INJ SCH (17:48)
--- NOTE | 2017-03-21 18:56 | PROGRESS NOTE ---
DATE: 03/21/2017 SUBJECTIVE: The patient currently resting in bed. Her family is at bedside. Her 2 daughters are present at bedside. No fever reported. No nausea or vomiting reported. The patient has poor oral intake and poor appetite. She had 1 bowel movement today. She has been rescheduled for paracentesis tomorrow per the radiologist. OBJECTIVE: Vital signs: Temperature 98.8 degrees, pulse rate of 85, respiratory rate 20, blood pressure 132/58, saturating 91% on mask 15 L. General appearance: Thinly built, lying in bed, in no acute. HEENT: Mild pallor. No icterus. Face mask in place. Neck: Supple. Abdomen: Distended. Positive ascites. Mild discomfort in the pelvic region. No rebound. Bowel sounds are present. Extremities: No cyanosis, clubbing. Neurologic: She is awake , alert. Answers questions. LABS: Hemoglobin and hematocrit are 8 and 26.5, white count 7.4, platelet count of 296,000. INR 1.15, PT of 12.2, PTT of 30.8. Sodium 142, potassium 4.3, chloride 101, bicarb 32, anion gap 9, BUN of 40, creatinine 0.8, glucose of 125, calcium is 8.4, phosphorus 4.1, magnesium 2.2. C. difficile toxin and antigen yesterday were negative. IMPRESSION AND PLAN: 1. Ascites causing abdominal distention and may be causing her respiratory distress. She does have pleural effusion which could be secondary to cirrhosis or ongoing infectious process. She is scheduled for paracentesis tomorrow per the radiologist. 2. We will keep her on low-sodium diet. 3. 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 She is currently on antibiotics. Followed by the primary team. 4. Recurrent pulmonary edema and pleural effusions. She has had 1 time thoracocentesis done a few days ago. She is being followed the primary care team and Dr. Coleman. 5. Severe protein calorie malnutrition. She is on TPN. 6. Cirrhosis of unclear etiology. We will keep a watch on her enzymes and liver function. 7. Acute hypoxic respiratory failure requiring increasing oxygen. I hope it will improve after paracentesis. 8. Anemia, currently stable. We will continue to watch and transfuse as needed. 9. The above plan was discussed with the patient and family and all questions were answered. cc: MD Brody Genao MD Dr. Harris Mamoun I. Najjar, MD MTDD
[2017-03-21] MEDS: ULTRAM PO PRN (20:45)
[2017-03-22] MEDS: XOPENEX NEB INH SCH ×6 (03:00→23:06)
[2017-03-22] MEDS: ATROVENT NEB INH SCH ×6 (03:00→23:06)
[2017-03-22] MEDS: CARAFATE LIQUID PO SCH ×4 (03:20→20:59)
[2017-03-22] MEDS: HUMULIN R SUBQ SCH ×6 (03:20→23:30)
[2017-03-22] MEDS: AZACTAM 2 GM in NS 100 ML IV SCH ×3 (03:41→19:52)
[2017-03-22] MEDS: CLINDAMYCIN 600 MG/NS 600 MG/50 ML IVPB IV SCH ×3 (04:25→21:29)
[2017-03-22] MEDS: PERIACTIN PO SCH ×3 (06:20→19:52)
[2017-03-22] MEDS: APRESOLINE PO SCH ×3 (06:21→20:58)
[2017-03-22] MEDS: SYNTHROID PO SCH (06:21)
[2017-03-22 06:37] LABS: CALCIUM 8.1 mg/dL (8.8-10.2); POTASSIUM 3.8 mmol/L (3.5-5.1)
[2017-03-22 06:43] LABS: MAGNESIUM 2.3 mg/dL (1.5-2.7)
[2017-03-22 07:16] LABS: BASO% 0.9 % (0.0-0.8); EOS# 0.48 X1000 (0.0-0.7); EOS% 6.4 % (0.0-10.0); HEMATOCRIT 25.2 % (37.0-47.0); HEMOGLOBIN 7.9 g/dL (12.0-16.0); IMM GRAN# 0.05 X1000 (0.0-0.04); IMM GRAN% 0.7 % (0.0-0.5); LYMPH# 0.92 X1000 (1.2-3.4); LYMPH% 12.3 % (20.5-51.1); MANUAL DIFF NEEDED? YES; MCH 25.2 PG (27-31); MCHC 31.3 g/dL (33-37); MCV 80.5 FL (81-99); MONO# 0.64 X1000 (0.11-0.59); MONO% 8.6 % (1.7-9.3); MPV 10.7 FL (7.4-10.4); NEUT% 71.1 % (42.2-75.2); PLT 289 X1000 (130-400); RBC 3.13 XMIL (4.2-5.4)
--- NOTE | 2017-03-22 07:37 | Diag Imaging Result Doc PS360 ---
CHEST-1 VIEW - 03/22/2017 INDICATION: SOB TECHNIQUE: COMPARISON: 03/21/2017 FINDINGS: Stable right PICC line. There is improvement in the bilateral pleural effusions which still are moderate to large. Heart size remains grossly normal. Pulmonary vascularity remains somewhat distended. IMPRESSION: Improvement in the pleural effusions, otherwise no change from prior. Electronically signed by Fabian Cruz 03/22/2017 7:35 AM
[2017-03-22 07:50] LABS: BANDS 3 % (0-1); LYMPHS 17 % (21-51)
[2017-03-22] MEDS: PULMICORT INH SCH ×2 (08:28→19:00)
[2017-03-22] MEDS: MUCOMYST 20% INH SCH ×2 (08:28→19:00)
--- NOTE | 2017-03-22 08:52 | PROGRESS NOTE ---
DATE: 03/22/2017 PRESENT ILLNESS: I am treating the patient for pelvic abscesses. On CT scan, they are getting smaller. The patient has a major problem with cirrhosis of the liver and fluid buildup causing ascites and pleural effusions. The patient also has pulmonary venous congestion. MEDICATIONS: This is the 26th day of treatment with a combination of clindamycin and aztreonam. PHYSICAL EXAMINATION: Vital Signs: Temperature is 98.9 degrees, pulse 83, respirations 18, blood pressure 125/53. General: This is a chronically ill-appearing, elderly female. She is lethargic. Lungs: There were diminished breath sounds in the bases. Cardiovascular: Heart rate is regular. Abdomen: Soft. It is becoming more protuberant due to buildup of ascites. LAB AND X-RAY: Chest x-ray shows improvement in the bilateral pulmonary effusions. Patient's CBC shows a white count of 7460, hemoglobin 7.9, and platelet count 289,000. Creatinine 0.9. GFR is 59. Stool for Clostridium difficile toxin and antigen was negative. ASSESSMENT AND PLAN: The patient has pelvic abscesses. She is on aztreonam and clindamycin. I plan to continue the antibiotics until the abscesses have resolved. COMORBIDITIES: Cirrhosis of the liver, malnutrition, hepatitis A, and diverticulitis. cc: Ivan Warner MD
--- NOTE | 2017-03-22 09:52 | Diag Imaging Result Doc PS360 ---
US PARACENTESIS - 03/22/2017 INDICATION: ascites COMPARISON: None FINDINGS: The risks and benefits of the procedure were discussed with the patient. All questions were answered. Written and verbal consent was obtained. Ultrasound scanning demonstrated ascites. Overlying skin was prepped and draped in sterile fashion. Anesthesia was achieved with injection of 10 cc 1% lidocaine. The paracentesis catheter was advanced until the return of ascites fluid. 4.1 L was aspirated. The catheter was withdrawn intact. The patient reported no symptoms from the procedure. IMPRESSION: Successful and uncomplicated ultrasound-guided paracentesis. Electronically signed by Fabian Cruz 03/22/2017 9:50 AM
[2017-03-22] MEDS: LIPOSYN 20% 250 ML IV SCH (10:09)
[2017-03-22 10:51] LABS: TOTAL PROT BODY FLUID 3.5 g/dL
[2017-03-22] MEDS: ICAR-C PO SCH ×2 (11:43→20:59)
[2017-03-22] MEDS: METAMUCIL POWDER PACKET PO SCH (11:43)
[2017-03-22] MEDS: LASIX IV SCH ×2 (11:43→20:59)
[2017-03-22] MEDS: CENTRUM SILVER PO SCH (11:44)
[2017-03-22] MEDS: CULTURELLE PO SCH ×2 (11:45→20:59)
[2017-03-22] MEDS: TOPROL XL PO SCH (11:45)
[2017-03-22] MEDS: ULTRAM PO PRN (11:45)
[2017-03-22 11:48] LABS: ALLEN TEST YES; BE 9.8 mmoll (-3.0-3.0); BLOOD TYPE ARTERIAL; DRAW SITE R RADIAL; METHB 1.4 % (0.0-1.5); O2(CT) 10.7 mL/dL (15.0-23.0); PCO2(98.6) 46 mmHg (35-45); PO2(98.6) 52 mmHg (60-100); SAMPLE BLOOD; SAO2 93.9 % (95.0-100.0); THB 8.4 g/dL (11.5-17.4); pH(98.6) 7.48 (7.35-7.45)
[2017-03-22 11:49] LABS: MODALITY CANNULA
[2017-03-22 11:58] LABS: DIFF NEEDED? YES; MONOS 82 %; POLYS 18 %; WBC BF 272 /cumm
[2017-03-22 12:18] LABS: PREALBUMIN 10.1 mg/dL (20-40)
[2017-03-22] MEDS: MONISTAT-7 VAG CREAM VAG SCH (12:37)
--- NOTE | 2017-03-22 15:26 | PROGRESS NOTE ---
DATE: 03/22/2017 SUBJECTIVE: The patient just came back from paracentesis today. She had 4.1 L taken out. She feels better. Abdominal distention is better. Her breathing is better. She is now weaned down to 5 L nasal cannula. She denies any fevers, rigors, or chills. She is getting tired and she wants to go home. Family at bedside. No fever reported. No vomiting reported. No blood in the stools reported. OBJECTIVE: Vital signs: Vital signs are 98.9 degrees, pulse of 80, respirations 22, blood pressure 125/56, currently on 4 L nasal cannula. General Appearance: Thinly- built, lying in bed, in no distress. HEENT: Pale conjunctivae. No icterus. Neck: Supple. Abdomen: Soft, nontender, nondistended. Bowel sounds noted. Extremities: No cyanosis or clubbing. Neurologic: She is awake and alert. Answers simple questions. LABORATORIES: Hemoglobin and hematocrit are 7.9 and 25.2, white count 7.4, platelet count of 289, MCV 80.5. Sodium 141, potassium 3.8, chloride 102, bicarb 32, anion gap of 7, BUN of 37, creatinine 0.9, glucose of 137, calcium is 8.1, phosphorus 4, magnesium 2.3, AST 43, Peritoneal fluid has 272 white cells. Out of it, 18% on polymorphonuclear cells , total protein 3.5, albumin of 1.3. Peritoneal fluid cultures currently pending. IMPRESSION AND PLAN: 1. Pelvic abscesses, secondary to diverticulitis and complicated with rectovaginal fistula. We will continue on antibiotics, as per Dr. Warner. 2. Cirrhosis-unclear etiology - We will avoid any hepatotoxic drugs. Follow up liver enzymes. 3. Chronic malnutrition. She continues total parenteral nutrition. She was to start orally, since her abdominal distention is better and, hopefully, we can wean her down on the total parenteral nutrition. 4. We will follow up on the fluid cultures. 5. GI prophylaxis with proton pump inhibitor. 6. Anemia, stable. Continue Iron and MVI QD. 7. Pulmonary edema and pleural effusions. I hope she feels better after the paracentesis. We will restart the incentive spirometry at bedside. The above plans discussed with the patient and family, and all questions were answered. cc: Dr. Randy Bae MD [facility]
[2017-03-22] MEDS: TPN ELECTROLYTES 20 ML, MAGNESIUM SULFATE 5 MEQ, M.V.I.-12 10 ML, MTE CONCENTRATE 1 ML,... IV SCH ×7 (15:48)
[2017-03-22] MEDS: LOVENOX SUBQ SCH (15:49)
--- NOTE | 2017-03-22 16:04 | PROGRESS NOTE ---
DATE: 03/22/2017 SUBJECTIVE: The patient reports feeling fine. There is definitely less abdominal pain. Also, she reports feeling very hungry. OBJECTIVE: Vital Signs: Temperature 98.9 degrees, heart rate 83, respiratory rate 22, blood pressure 125/53, O2 saturation 95% on 4 L nasal cannula. General Examination: This is a chronically ill-looking, very malnourished and frail, 87-year-old female, lying in bed, in no acute distress. HEENT: Head is normocephalic, atraumatic. Anicteric sclerae and pale conjunctivae. Mucosa moist. Neck: Supple. No JVD noted. No carotid bruits. No lymphadenopathy. No thyromegaly. Cardiovascular: S1, S2 heard. No murmurs, gallops, or rubs. Regular rate and rhythm. Respiratory: Decreased breath sounds globally, with coarse breath sounds. Slightly decreased breath sounds in the right base. The patient is not using any accessory muscles or having work of breathing. Abdomen: Soft, nontender to palpation. Definitely less distended. No organomegaly. Extremities: No clubbing, cyanosis, or edema. Peripheral pulses present in both legs. Neurological: The patient alert and oriented x2. Moves 4 extremities. LABORATORY DATA: White cell count 7.46, with hemoglobin 7.9, hematocrit 25.2, platelets 289,000. The ABG shows pH 7.48, with pCO2 of 46. BMP unremarkable. ASSESSMENT AND PLAN: 1. Pelvic abscess related to diverticulitis with vaginal fistula. this patient came to the hospital for this condition. Evaluated by General Surgery and Obstetrics/Gynecology. She is not, of course, a candidate for any type of surgery, considering her many medical conditions. At this point ,recommendations from Infectious Disease is to continue with antibiotics for at least 6 weeks. The patient has been on antibiotics for 3 weeks already. She is on clindamycin and aztreonam. White cell count is normal. She is not spiking any fever. We will continue with the same management. 2. Recurrent pulmonary edema and pleural effusion. During her stay at hospital here, she had a thoracentesis that removed like 1.5 L of pleural fluid 1 week ago. Since then, she was feeling fine. The last x-ray from today shows minimal bilateral pleural effusion. At this point, we will continue with the same management. 3. 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 Ascites has been getting worse in the last few days, so Gastroenterology decided to do paracentesis. They removed 4.2 L of ascitic fluid. Since then, the patient is definitely feeling much better. Her oxygen needs have improved a lot. We will continue following recommendations from Gastroenterology. 4. Severe protein calorie malnutrition. The patient is on total parenteral nutrition so, now that she is feeling better, the plan with Gastroenterology is to start a puree diet and see how this patient tolerates it. In case she does, we can stop total parenteral nutrition and we can, most likely, send this patient to a usp or rehabilitation facility. 5. Acute hypoxemic respiratory failure. Oxygen needs are actually, after paracentesis, getting better. Now requiring 4 L of oxygen by nasal cannula. We will continue with the same management. 6. Iron-deficiency anemia. Hemoglobin is stable, so we are going to continue with checking CBC. If hemoglobin drops to 7 or below, we will transfuse as needed. 7. Disuse myopathy. The patient is very weak, of course, because of many medical comorbidities, and also the day of the length of hospitalization. Physical Therapy is working with her. I do not think she is a good candidate for rehabilitation. In any case, we will continue with physical therapy. 8. Overall, the patient is not making any progress, but she is not getting worse. At this time, the paracentesis has helped her a lot by decreasing her oxygen needs, and she is breathing okay. If we are able to start diet and discontinue total parenteral nutrition, she can be sent to any facility with antibiotics IV. We will continue watching this patient closely. cc: Brody Mustafa MD
[2017-03-22] MEDS: PROTONIX IV SCH (19:52)
[2017-03-23] MEDS: AZACTAM 2 GM in NS 100 ML IV SCH ×3 (00:58→17:30)
[2017-03-23] MEDS: HUMULIN R SUBQ SCH ×6 (00:59→20:50)
[2017-03-23] MEDS: CARAFATE LIQUID PO SCH ×5 (00:59→20:44)
[2017-03-23] MEDS: XOPENEX NEB INH SCH ×6 (03:50→23:17)
[2017-03-23] MEDS: ATROVENT NEB INH SCH ×6 (03:50→23:17)
[2017-03-23] MEDS: CLINDAMYCIN 600 MG/NS 600 MG/50 ML IVPB IV SCH ×3 (05:13→20:53)
[2017-03-23] MEDS: PERIACTIN PO SCH ×4 (05:13→17:30)
[2017-03-23] MEDS: APRESOLINE PO SCH ×3 (05:13→20:44)
[2017-03-23] MEDS: SYNTHROID PO SCH ×2 (05:41→06:08)
[2017-03-23 06:53] LABS: AGAP 6; BUN 36 mg/dL (8-22); CHLORIDE 103 mmol/L (98-107); COSMO 294; POTASSIUM 3.5 mmol/L (3.5-5.1); SODIUM 142 mmol/L (136-145); TCO2 33 mmol/L (25-35)
[2017-03-23 06:59] LABS: MAGNESIUM 2.1 mg/dL (1.5-2.7)
[2017-03-23] MEDS: MORPHINE IV PRN ×2 (07:02→20:49)
--- NOTE | 2017-03-23 07:19 | Diag Imaging Result Doc PS360 ---
EXAM: CHEST-1 VIEW HISTORY: SOB TECHNIQUE: Erect AP portable at 0600 hours COMMENT: There are bilateral pleural effusions more so on the right than the left. There is pulmonary edema which appears worse in the left lower lobe than on 03/22/2017. Otherwise has been no significant change. IMPRESSION: Worsened pulmonary edema. Electronically signed by Dave Proctor 03/23/2017 7:17 AM
[2017-03-23] MEDS: PULMICORT INH SCH ×2 (07:45→19:22)
[2017-03-23] MEDS: MUCOMYST 20% INH SCH ×2 (07:45→19:21)
--- NOTE | 2017-03-23 08:26 | PROGRESS NOTE ---
DATE: 03/22/2017 SUBJECTIVE: Feels okay. Still not much appetite. She is having bowel function. No nausea or vomiting. She had a paracentesis today that apparently was uneventful. OBJECTIVE: Vital Signs: No fevers, pulse has been in the 80s, blood pressure 125/53, oxygen saturation 92% on 4 L nasal cannula. General: She is alert, confused at times. Cardiovascular: Normal rate. Regular rhythm. Abdomen: Soft, nontender, nondistended. I do not see any tympany or peritonitis. Integument: Warm and dry. Extremities: There is 1+ lower extremity edema. LABORATORY DATA: White count 7, hematocrit 25. Creatinine is 0.9, glucose 137, potassium 3.8. Prealbumin on 03/19/2017 was 11.3. Peritoneal fluid cultures are pending. ASSESSMENT AND PLAN: This is an 87-year-old female with diverticulitis and cirrhosis and ascites. She likely had contaminated ascites causing these peritoneal abscesses. She seems clinically resolves from this. She does not have much appetite, but is having bowel function and not vomiting. Diffuse anasarca and respiratory issues are her main issue right now. Regarding her appetite, I think maintaining on a regular Ensure supplemented regimen is the best course of action. It would be reasonable to hold her total parenteral nutrition for a couple of days to see if this stimulates her appetite. Will continue to monitor. No plans for surgical intervention at this point. cc: Deion Bradford MD
[2017-03-23] MEDS: CENTRUM SILVER PO SCH (08:45)
[2017-03-23] MEDS: LASIX IV SCH ×2 (08:45→20:53)
[2017-03-23] MEDS: TOPROL XL PO SCH (08:45)
[2017-03-23] MEDS: CULTURELLE PO SCH ×2 (08:45→20:43)
[2017-03-23] MEDS: ICAR-C PO SCH ×2 (08:45→20:44)
[2017-03-23] MEDS: METAMUCIL POWDER PACKET PO SCH (08:46)
--- NOTE | 2017-03-23 08:46 | PROGRESS NOTE ---
DATE: 03/23/2017 PRESENT ILLNESS: The patient has pelvic abscesses, which on CT scan are getting smaller. She also has cirrhosis of the liver and pulmonary edema. MEDICATIONS: This is the 27th day of treatment with a combination of clindamycin and aztreonam. PHYSICAL EXAMINATION: Vital Signs: Temperature is 97.7, pulse 88, respirations 18, blood pressure 130/52. General: This is a chronically ill-appearing, elderly female. She is very confused today. She has been swearing at people. Lungs: Have bibasilar rales. Cardiovascular: Heart rate was irregular today. Abdomen: Soft. It is becoming a little more protuberant, most likely due to a buildup of ascites. Extremities: Legs: Patient has edema, but no erythema. LAB AND X-RAY: Chest x-ray shows worsening pulmonary edema. Creatinine 0.8. GFR is greater than 60. A CBC was not drawn for today. ASSESSMENT AND PLAN: The patient has pelvic abscesses for which I am going to continue aztreonam and clindamycin until they are gone. Her altered mental status may be due to a combination of things, including low oxygen level or just confusion in a place that is not her home. COMORBIDITIES: Include cirrhosis of the liver, malnutrition, hepatitis A and diverticulitis. cc: Ivan Warner MD
[2017-03-23] MEDS: LIPOSYN 20% 250 ML IV SCH ×2 (08:47→11:56)
[2017-03-23] MEDS: MONISTAT-7 VAG CREAM VAG SCH (08:47)
[2017-03-23] MEDS: LOVENOX SUBQ SCH ×2 (12:12→14:01)
[2017-03-23] MEDS: TPN ELECTROLYTES 20 ML, MAGNESIUM SULFATE 5 MEQ, M.V.I.-12 10 ML, MTE CONCENTRATE 1 ML,... IV SCH ×7 (12:12)
--- NOTE | 2017-03-23 14:26 | PROGRESS NOTE ---
DATE: 03/23/2017 SUBJECTIVE: As per nursing staff, in the morning, the patient was combative and refusing to have her blood sugar checked. Also, last night she did not sleep well and, apparently after she got agitated, oxygen needs go up needing a Ventimask. Now, she is resting comfortable. OBJECTIVE: Vital Signs: Temperature 97.7 degrees, heart rate 88, respiratory rate 12, blood pressure 130/72 and O2 saturation 83% on room air and on nasal cannula is 91%. General: This is a chronically ill-looking, very malnourished, and frail 87-year-old female lying in bed, in no acute distress. HEENT: Head is normocephalic and atraumatic. Anicteric sclerae and pale conjunctivae. Mucous membranes moist. Neck supple. No JVD noted. No carotid bruits. No lymphadenopathy. No thyromegaly. Cardiovascular: S1, S2 heard. No murmurs, gallops, or rubs. Regular rate and rhythm. Respiratory: Decreased breath sounds globally with coarse breath sounds still present unchanged when compared with yesterday. Patient is not using any accessory muscles or having work of breathing. Abdomen is soft, less distended. No organomegaly. No clubbing or cyanosis noted. Extremities: No clubbing, cyanosis, or edema. Peripheral pulses present in both legs. Neurologic: The patient is sleepy today. Does not follow commands. LABORATORY DATA: There are no labs from today. ASSESSMENT AND PLAN: 1. Pelvic abscess related to diverticulitis with vaginal fistula. Long story short, the patient came to the hospital for this condition. She was evaluated by general surgery and [employer]. They, of course, said that she is not a candidate for any type of surgery considering her many medical comorbidities. At this point, Infectious Disease is following this patient. They plan to continue antibiotics for at least 6 weeks. She has been given at least 3 weeks of those. She is on clindamycin and aztreonam. White cell count is back to normal. She is not spiking any fever. We will continue with the same management. 2. Recurrent pulmonary edema and pleural effusion during her hospitalization here. She had a thoracentesis that removed 1.5 L of pleural fluid 1 week ago. Since then, she is doing fine. Her last x-ray did show minimal bilateral pleural effusion. 3. 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 She had a paracenteses 2 days ago when they removed 4.2 L of ascitic fluid. Since then, apparently, she was feeling much better. Oxygen needs are changing from 5 L nasal cannula to Ventimask. In any case, almost all the time she was here, her oxygen needs have been higher. 4. Severe protein calorie malnutrition. After the paracenteses, we thought that this patient without the pressure that this ascitic fluid was causing to the abdomen, we were thinking about start diet and then that way stop total parenteral nutrition,but she is not feeling that she would like to eat. Of course, we will continue with the PN by now. 5. Acute hypoxemic respiratory failure. Patient is on 5 L nasal cannula and sometimes her oxygen needs get even higher when she becomes agitated. 6. Iron deficiency anemia. So far, the hemoglobin has been stable in the range of 7.9. We will continue with home medications. 7. Disuse myopathy. The patient is very weak because of medical comorbidities but, considering all her medical conditions listed above, she is not a candidate for any rehabilitation. I talked with the family today about her clinical situation. I told them that she is not going anywhere. Patient's daughter prefers to keep her here for few more times. I talked to her, and I said that if she is not able to eat during the next 2-3 days, I do not think she is going to do it later on, so I guess in 2 days we can check with them to see what will be the next step in management of her relative because, at some point, when she was getting worse last week, they were talking about possible withdrawal of care, which for me at this point, is the most reasonable measure that we can take. In any case, we will follow with the family about what they plan to do. We will continue to follow this patient closely. cc: Brody Mustafa MD
[2017-03-23] MEDS: PROTONIX IV SCH (17:30)
[2017-03-23] MEDS ORDERED: CATHFLO IV ONE (22:58)
[2017-03-23] MEDS ORDERED: STERILE WATER INJ. INJ ONE (22:58)
[2017-03-24] MEDS: CLINDAMYCIN 600 MG/NS 600 MG/50 ML IVPB IV SCH ×3 (00:04→17:04)
[2017-03-24] MEDS: LASIX IV SCH ×3 (00:15→22:11)
[2017-03-24] MEDS: AZACTAM 2 GM in NS 100 ML IV SCH ×4 (00:59→17:09)
[2017-03-24] MEDS: HUMULIN R SUBQ SCH ×4 (01:32→18:08)
[2017-03-24] MEDS: CARAFATE LIQUID PO SCH ×4 (01:32→22:10)
[2017-03-24] MEDS: XOPENEX NEB INH SCH ×6 (03:37→23:00)
[2017-03-24] MEDS: ATROVENT NEB INH SCH ×6 (03:37→23:00)
[2017-03-24 03:58] LABS: ALLEN TEST YES; BE 12.1 mmoll (-3.0-3.0); BLOOD TYPE ARTERIAL; DRAW SITE R RADIAL; METHB 1.2 % (0.0-1.5); O2(CT) 11.1 mL/dL (15.0-23.0); PCO2(98.6) 43 mmHg (35-45); PO2(98.6) 55 mmHg (60-100); SAMPLE BLOOD; SAO2 95.1 % (95.0-100.0); THB 8.5 g/dL (11.5-17.4); pH(98.6) 7.53 (7.35-7.45)
[2017-03-24 03:59] LABS: MODALITY CANNULA
[2017-03-24] MEDS: APRESOLINE PO SCH ×4 (05:10→22:12)
[2017-03-24] MEDS: PERIACTIN PO SCH ×4 (05:19→17:11)
[2017-03-24] MEDS: SYNTHROID PO SCH ×2 (05:19→06:05)
--- NOTE | 2017-03-24 06:27 | Diag Imaging Result Doc PS360 ---
EXAM: CHEST-1 VIEW HISTORY: SOB TECHNIQUE: Portable AP COMPARISON: 03/23/2017 FINDINGS: No change in the right-sided PICC line. The heart is mildly enlarged. There are small bilateral pleural effusions. There is vascular distention with bilateral infiltrates. The overall appearance is quite similar to that of the prior exam. IMPRESSION: No interval improvement. Electronically signed by Tj Ivy 03/24/2017 6:25 AM
[2017-03-24 06:59] LABS: MAGNESIUM 2.4 mg/dL (1.5-2.7)
[2017-03-24] MEDS: MUCOMYST 20% INH SCH ×2 (07:50→19:25)
[2017-03-24] MEDS: PULMICORT INH SCH ×2 (07:50→19:25)
[2017-03-24] MEDS: CENTRUM SILVER PO SCH ×2 (07:57→13:28)
[2017-03-24] MEDS: ICAR-C PO SCH ×3 (07:57→22:10)
[2017-03-24] MEDS: METAMUCIL POWDER PACKET PO SCH ×2 (07:57→13:31)
[2017-03-24] MEDS: CULTURELLE PO SCH ×3 (07:57→22:12)
[2017-03-24] MEDS: LIPOSYN 20% 250 ML IV SCH ×2 (07:58→13:29)
[2017-03-24] MEDS: MONISTAT-7 VAG CREAM VAG SCH (07:59)
--- NOTE | 2017-03-24 09:02 | PROGRESS NOTE ---
DATE: 02/21/2017 PRESENT ILLNESS: The patient has pelvic abscesses, which on CT scan are improving. She also has cirrhosis of the liver, and pulmonary venous congestion. MEDICATIONS: This is the 28th day of treatment with clindamycin and aztreonam. PHYSICAL EXAMINATION: Vital Signs: Temperature is 99.4, pulse 95, respirations 20, blood pressure 104/50. General: This is a chronically ill-appearing, elderly female. She is more alert today. Lungs: Clear to auscultation. Cardiovascular: Regular heart rate. Abdomen: Soft and nontender. It appears to be getting slightly more protuberant due to buildup of ascites. Legs: There is edema, but no erythema. IMAGING AND LABORATORY DATA: The patient's blood gases showed a pH of 7.55, PO2 of 55, pCO2 of 43. There is no other lab, and no radiographic study left. ASSESSMENT AND PLAN: I am going to continue the current antibiotics, namely clindamycin and aztreonam, and in a few weeks, repeat the CAT scan to see the abscesses are gone. I have increased the patient to start eating to improve her nutrition, which would help get her over her infection, and hopefully would cause her not having to have abdominal paracentesis performed so often. The patient's comorbidities include cirrhosis of the liver, malnutrition, hepatitis A, and diverticulitis. cc: Ivan Warner MD
[2017-03-24 11:02] LABS: AGAP 7; BUN 36 mg/dL (8-22); CALCIUM 7.7 mg/dL (8.8-10.2); CHLORIDE 101 mmol/L (98-107); POTASSIUM 3.5 mmol/L (3.5-5.1); SODIUM 140 mmol/L (136-145); TCO2 32 mmol/L (25-35)
[2017-03-24 11:16] LABS: COSMO 289
[2017-03-24] MEDS: TOPROL XL PO SCH (13:31)
[2017-03-24] MEDS: TPN ELECTROLYTES 20 ML, MAGNESIUM SULFATE 5 MEQ, M.V.I.-12 10 ML, MTE CONCENTRATE 1 ML,... IV SCH ×7 (13:42)
[2017-03-24] MEDS: LOVENOX SUBQ SCH (13:43)
--- NOTE | 2017-03-24 15:32 | PROGRESS NOTE ---
DATE: 03/24/2017 SUBJECTIVE: Her family is at bedside. Patient is eating. The patient before, but she is not eating too much. She is trying to get Ensure. No other issues reported. OBJECTIVE: Vital Signs: Temperature 99.4 degrees, heart rate 95, respiratory rate 20, blood pressure 104/50, O2 saturation 99% on Venturi mask. General: This is a chronically ill-looking, very malnourished, and frail 87-year-old female lying in bed in no acute distress. HEENT: Head is normocephalic, atraumatic. Anicteric sclerae and pale conjunctivae. Mucous membranes moist. Neck supple. No JVD noted. No carotid bruits. No lymphadenopathy. No thyromegaly. Cardiovascular: S1, S2 heard. No murmurs, gallops, or rubs. Regular rate and rhythm. Respiratory: Decreased breath sounds globally with coarse breath sounds still present and unchanged when compared with previous days. Patient is not using any accessory muscles or having work of breathing. Abdomen is soft and definitely less distended. No organomegaly. No clubbing or cyanosis. Definitely less distended. No organomegaly noted. Extremities: No clubbing, cyanosis, or edema. Peripheral pulses present in both legs. Neurologic: Patient is sleepy. Does follow commands, easily arousable. LABORATORY DATA: The ABG shows pH 7.53 with pCO2 of 43, BMP unremarkable, except BUN elevated. ASSESSMENT AND PLAN: 1. Pelvic abscess related to diverticulitis with vaginal fistula. Will continue with antibiotics. Currently, it has been almost a month since this patient is receiving aztreonam and clindamycin. Dr. Warner is following this patient. We will follow recommendations. 2. Acute pulmonary edema and pleural effusion. During her hospitalization, she had one paracentesis done. At this point, the condition is stable. 3. Cirrhosis likely non-alcoholic steatohepatitis. After the patient had paracenteses, apparently she was breathing better the next day, but she is still requiring high amounts of oxygen by Ventimask. We will continue with same management. 4. Severe protein calorie malnutrition. Actually, we are planning to start feeding this patient by mouth, so we can try to wean off TPN. Unfortunately, this patient is not eating enough. I do not think she is going to eat better. I will wait a couple of days and then, if this situation persists and is the same, we are going to have a conversation with the family about what will be the goals of care. 5. Acute hypoxemic respiratory failure. The patient is still requiring high amount of oxygen daily. She was on Ventimask and now requiring 5-6 L of oxygen by nasal cannula. 6. Iron deficiency anemia. So far, hemoglobin has been stable. We will continue with the same management. 7. Disuse myopathy. Patient is very weak because of medical comorbidities but, considering all her medical conditions, I think she is not a candidate for any rehab. cc: Brody Mustafa MD
[2017-03-24] MEDS: PROTONIX IV SCH (17:10)
[2017-03-24] MEDS: SODIUM CHLORIDE 0.9% INJ SCH (17:11)
--- NOTE | 2017-03-24 18:49 | PROGRESS NOTE ---
DATE: 03/24/2017 SUBJECTIVE: Patient currently resting in bed. She is somewhat sleepy today. She continues to have poor oral intake. She is on TPN. No recorded fever. OBJECTIVE: Vital signs: Temperature 99.4, pulse rate 90, respiratory rate 14, blood pressure 104/50, saturating 99% on 5 L nasal cannula. General: Elderly female lying in bed, currently sleeping. HEENT: Pupils midline. No icterus. Neck: Supple. Abdomen: Softer, less distention noted than before. She had a paracentesis done 2 days ago. Bowel sounds are present. No guarding. Extremities: No cyanosis or clubbing. She has REGINALDO stockings. Neurologic: She is currently sleeping. LABS: Hemoglobin and hematocrit are 7.9 and 25.2, white count 7.46, platelet count 289. These labs are from 03/22/2017. Otherwise, sodium is 140, potassium 3.5, chloride 101 , bicarb 29, anion gap 7, BUN 36, creatinine 0.6, glucose 131, calcium 7.7, phosphorus 4.8, magnesium 2.4. IMPRESSION AND PLAN: 1. 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 She is on antibiotics with aztreonam and clindamycin per Dr. Warner. 2. Cirrhosis of unclear etiology. Will continue to follow liver enzymes. 3. Ascites. She is status post paracentesis. The fluid culture has showed no growth, aerobic or anaerobic. 4. Diarrhea. Her stool studies have been negative, C. difficile toxin antigen. 5. Severe protein calorie malnutrition. She is on TPN. We are trying to encourage the patient to eat better so that we can wean her TPN; but so far we have little success. 6. Hypoxemic respiratory failure. She is requiring lots of oxygen. We are going to encourage her to use incentive spirometry at the bedside. 7. Iron-deficiency anemia. Will continue to watch her hemoglobin and hematocrit and transfuse as needed. The above plan was discussed with the patient and family as well as with Dr. Padilla and Dr. Warner. cc: James Bae MD [facility]
[2017-03-25] MEDS: HUMULIN R SUBQ SCH ×6 (01:11→17:30)
[2017-03-25] MEDS: CLINDAMYCIN 600 MG/NS 600 MG/50 ML IVPB IV SCH ×3 (01:16→15:10)
[2017-03-25] MEDS: AZACTAM 2 GM in NS 100 ML IV SCH ×3 (01:48→17:18)
[2017-03-25] MEDS: CARAFATE LIQUID PO SCH ×4 (02:43→22:27)
[2017-03-25] MEDS: ATROVENT NEB INH SCH ×6 (03:35→23:00)
[2017-03-25] MEDS: XOPENEX NEB INH SCH ×6 (03:35→23:00)
[2017-03-25] MEDS: APRESOLINE PO SCH ×3 (05:29→22:27)
[2017-03-25] MEDS: PERIACTIN PO SCH ×4 (05:48→15:10)
[2017-03-25] MEDS: SYNTHROID PO SCH ×2 (05:48→06:20)
[2017-03-25 06:40] LABS: BASO% 0.5 % (0.0-0.8); EOS# 0.28 X1000 (0.0-0.7); EOS% 3.5 % (0.0-10.0); HEMATOCRIT 27.8 % (37.0-47.0); HEMOGLOBIN 8.7 g/dL (12.0-16.0); IMM GRAN# 0.03 X1000 (0.0-0.04); IMM GRAN% 0.4 % (0.0-0.5); LYMPH# 0.93 X1000 (1.2-3.4); LYMPH% 11.6 % (20.5-51.1); MANUAL DIFF NEEDED? NO; MCH 25.1 PG (27-31); MCHC 31.3 g/dL (33-37); MCV 80.3 FL (81-99); MONO# 0.65 X1000 (0.11-0.59); MONO% 8.1 % (1.7-9.3); MPV 10.6 FL (7.4-10.4); NEUT% 75.9 % (42.2-75.2); PLT 287 X1000 (130-400); RBC 3.46 XMIL (4.2-5.4)
[2017-03-25 06:54] LABS: MAGNESIUM 2.2 mg/dL (1.5-2.7)
[2017-03-25 07:24] LABS: AGAP 6; BUN 37 mg/dL (8-22); CALCIUM 8.1 mg/dL (8.8-10.2); CHLORIDE 105 mmol/L (98-107); COSMO 297; POTASSIUM 3.1 mmol/L (3.5-5.1); SODIUM 145 mmol/L (136-145); TCO2 34 mmol/L (25-35)
--- NOTE | 2017-03-25 07:37 | Diag Imaging Result Doc PS360 ---
EXAM: CHEST-1 VIEW HISTORY: SOB TECHNIQUE: AP portable erect at 0610 COMMENT: There are bilateral pleural effusions larger on the right than the left. There is probable pulmonary edema. The appearance of the chest as worsened slightly with respect to the volume of pleural fluid on the right since the previous study of 03/24/2017. IMPRESSION: Increased right pleural effusion. Pulmonary edema. Electronically signed by Dave Proctor 03/25/2017 7:35 AM
[2017-03-25] MEDS: MUCOMYST 20% INH SCH ×2 (07:43→19:00)
[2017-03-25] MEDS: PULMICORT INH SCH ×2 (07:43→19:00)
--- NOTE | 2017-03-25 08:12 | PROGRESS NOTE ---
DATE: 03/25/2017 PRESENT ILLNESS: The patient has pelvic abscesses which are getting smaller as seen on CT scan. She also has cirrhosis of the liver and pulmonary venous congestion. The patient also seems somewhat depressed. She may have decided that she is not going to get better or that she does not really want to get better, and she just wants to go home and be with her family. MEDICATIONS: This is day 29 of treatment with clindamycin and aztreonam. PHYSICAL EXAMINATION: Vital Signs: Temperature is 98.4 degrees, pulse 101, respirations 16, blood pressure 114/44. General: This is a chronically ill-appearing, elderly female. She is in no acute distress. Lungs: Clear to auscultation. Cardiovascular: Regular heart rate. Abdomen: Soft and nontender. It is somewhat protuberant due to ascites buildup. Extremities: The legs are edematous but not erythematous. LABORATORY AND RADIOGRAPHIC STUDIES: The only new lab for today is a CBC with a white count of 8050, hemoglobin 8.7, and platelet count of 287,000. ASSESSMENT AND PLAN: Our plan now is to continue with antibiotics and also trying to build up her nutrition. The patient has just not started to eat. I discussed with her and with one of the family members that she needed to make a decision about wanting to get better. If she does, she would have to start eating. If not, if she would just prefer to go home and be comfortable, and not receive antibiotics and only do comfort measures, that can be arranged for too. One of the family members is going to get with the other family members and sit down and talk to the patient, and they all will come to a decision as to if they want treatment to continue or if they would prefer that the patient would go home under hospice care and be kept comfortable so she could be with her family. COMORBIDITIES: Include cirrhosis of the liver, malnutrition, hepatitis A, diverticulitis, and now the patient's mental status is such that she may not want to continue with treatment. cc: Ivan Warner MD
[2017-03-25] MEDS: MONISTAT-7 VAG CREAM VAG SCH (09:00)
[2017-03-25 09:08] LABS: INR 1.13
[2017-03-25] MEDS: TOPROL XL PO SCH (10:15)
[2017-03-25] MEDS: CENTRUM SILVER PO SCH (10:15)
[2017-03-25] MEDS: ICAR-C PO SCH ×2 (10:16→22:27)
[2017-03-25] MEDS: CULTURELLE PO SCH ×2 (10:16→22:27)
[2017-03-25] MEDS: METAMUCIL POWDER PACKET PO SCH (10:17)
[2017-03-25] MEDS: LASIX IV SCH ×2 (10:18→22:26)
--- NOTE | 2017-03-25 11:53 | PROGRESS NOTE ---
DATE: 03/25/2017 SUBJECTIVE: Family is at bedside. The patient is not eating well yet. She is trying to get Ensure. No fever or chills reported. OBJECTIVE: Vital Signs: Temperature 97.9 degrees, heart rate 103, respiratory rate 20, blood pressure 133/55, O2 saturation 94% on 4 L nasal cannula. General examination: She is a chronically ill-looking, very malnourished and frail 87-year-old female lying in bed, in no acute distress. HEENT: Head is normocephalic, atraumatic. Anicteric sclerae and pale conjunctivae. Mucous membranes very dry. Neck: Supple. No JVD noted. No carotid bruits. No lymphadenopathy. No thyromegaly. Cardiovascular: S1, S2 heard. No murmurs, gallops, or rubs. Regular rate and rhythm. Respiratory: Coarse breath sounds still present in both pulmonary nguyễn. Patient is not using any accessory muscles or having work of breathing. Abdomen: Soft, nontender to palpation. Bowel sounds present. No organomegaly. Extremities: No clubbing, cyanosis, or edema. Peripheral pulses present in both legs. Neurological: Patient alert and oriented x3. Moves 4 extremities. Cranial nerves 2-12 grossly normal. LABORATORY DATA: Reviewed. ASSESSMENT AND PLAN: 1. Pelvic abscess related to diverticulosis. The patient is on antibiotics. Currently she is on clindamycin due to heart rate. Dr. Warner has talked with the family about her situation and that she is not going forward. We will follow his recommendations. 2. Acute pulmonary edema and pleural effusion. At this point, is stable and apparently clinically the abdomen looks a little bit more distended and full so I am some suspecting that ascites is getting worse again. We will inform the family about this finding. 3. 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 Patient had a paracenteses a few days ago and she was doing fine a few days after but she apparently she started reaccumulating fluid. 4. Severe protein calorie malnutrition. Patient was on TPN and for awhile and although the plan was to try to feed her by mouth she is not eating enough. I do not think she is going to improve regarding this condition. We have informed the family about it. 5. Acute hypoxemic respiratory failure. She is still requiring 5 L of oxygen by nasal cannula. 6. Disuse myopathy. Patient is extremely weak because of medical comorbidities and I think she is not a candidate for physical therapy now. Overall, this patient is not going anywhere. Patient has been for a month here. Although initially the family requests to have her 1 more week here in the hospital I do not think that will make any difference. Patient also reports that if she will stay 1 more week here, she is going to be weaker and weaker. Family requests time to talk with the rest of the relatives to make the decision to send her home with hospice or not. We will see what they have to say tomorrow. cc: Brody Mustafa MD
[2017-03-25] MEDS ORDERED: POTASSIUM CHLORIDE 60 MEQ in NS 500 ML IV ONE (12:00)
[2017-03-25] MEDS: LOVENOX SUBQ SCH (14:41)
[2017-03-25] MEDS ORDERED: NS 250 ML ONE (15:48)
[2017-03-25] MEDS: PROTONIX IV SCH (17:09)
[2017-03-25] MEDS: TPN ELECTROLYTES 20 ML, MAGNESIUM SULFATE 5 MEQ, M.V.I.-12 10 ML, MTE CONCENTRATE 1 ML,... IV SCH ×7 (17:10)
[2017-03-25] MEDS: LIPOSYN 20% 250 ML IV SCH (17:11)
[2017-03-25] MEDS: ZOFRAN IV PRN (18:29)
--- NOTE | 2017-03-25 18:54 | PROGRESS NOTE ---
DATE: 03/25/2017 SUBJECTIVE: Patient is resting in bed. Her family is at bedside. She has denied any fevers or chills. She continues to have poor oral intake. The family is assisting her with feeding today. She was having a slightly better day than yesterday. Her bowel movements are slowed down. She had 2 bowel movements today. No vomiting blood or passing blood. OBJECTIVE: Vital Signs: Temperature 98.4, pulse of 108, respiratory 18, blood pressure 130/63, saturating 90% on nasal cannula. General Appearance: Thinly built, lying in bed, in no distress. HEENT: No pallor. No icterus. Abdomen: Mild protuberance and mild distention noted. Bowel sounds are present. Positive ascites. No guarding. Extremities: SCDs and elastic stockings noted. Neurologic: She is awake and alert. Answers questions. LABORATORY DATA: Hemoglobin and hematocrit is 8.7 and 27.8, white count of 8.05, platelet count of 287,000. MCV of 83.3, INR 1.13, PT of 12, sodium 140, potassium 3.1, chloride 105, bicarbonate 34, anion gap of 6, BUN of 37, creatinine 0.8, glucose of 89, calcium is 8.1, phosphorus 3.9, magnesium 2. IMPRESSION/PLAN: 1. Pelvic abscesses secondary to diverticulitis and complicated with rectal anal fistula. She is currently on antibiotics per Dr. Warner. 2. Cirrhosis of unclear etiology, with ascites, which has been drained twice. Will keep her on a low-sodium diet less than 2 g in 24 hours. 3. Decreased p.o. intake and severe protein calorie malnutrition. She is going to continue use TPN. The family is assisting her with oral feeding. 4. Acute hypoxic respiratory failure. She continues to be on 4 to 5 L of nasal cannula oxygen. We will encourage her to use incentive spirometer at bedside. 5. Anemia. Continue to watch and transfuse if needed.. 6. Above plan discussed with patient and family and also with Dr. Padilla. cc: James Bae MD
[2017-03-25] MEDS: MORPHINE IV PRN (22:26)
[2017-03-26] MEDS: CLINDAMYCIN 600 MG/NS 600 MG/50 ML IVPB IV SCH ×2 (01:23→11:20)
[2017-03-26] MEDS: HUMULIN R SUBQ SCH ×6 (01:51→17:46)
[2017-03-26] MEDS: AZACTAM 2 GM in NS 100 ML IV SCH ×2 (02:02→11:17)
[2017-03-26] MEDS: ATROVENT NEB INH SCH ×6 (03:21→23:05)
[2017-03-26] MEDS: XOPENEX NEB INH SCH ×6 (03:21→23:05)
[2017-03-26] MEDS: APRESOLINE PO SCH ×2 (04:46→16:06)
[2017-03-26] MEDS: PERIACTIN PO SCH ×4 (05:16→16:06)
[2017-03-26] MEDS: SYNTHROID PO SCH ×2 (05:16→06:35)
[2017-03-26 06:02] LABS: MAGNESIUM 2.1 mg/dL (1.5-2.7)
[2017-03-26 06:18] LABS: AGAP 8; BUN 34 mg/dL (8-22); CALCIUM 7.8 mg/dL (8.8-10.2); CHLORIDE 102 mmol/L (98-107); COSMO 292; POTASSIUM 4.2 mmol/L (3.5-5.1); SODIUM 142 mmol/L (136-145); TCO2 32 mmol/L (25-35)
[2017-03-26] MEDS: CARAFATE LIQUID PO SCH ×3 (06:34→17:45)
--- NOTE | 2017-03-26 07:22 | Diag Imaging Result Doc PS360 ---
EXAM: CHEST-1 VIEW HISTORY: SOB TECHNIQUE: Portable COMPARISON: 03/25/2017 FINDINGS: There is a small left-sided pleural effusion and a moderate-sized right-sided pleural effusion. There is bilateral basilar atelectasis and there could be underlying infiltrates. Vasculature is distended. A left-sided PICC line has been placed since the prior exam. The tip overlies the right atrium. There has been no other interval change. IMPRESSION: Interval placement of a left-sided PICC line, otherwise stable chest.. Electronically signed by Tj Ivy 03/26/2017 7:20 AM
[2017-03-26] MEDS: PULMICORT INH SCH ×2 (07:25→19:35)
[2017-03-26] MEDS: MUCOMYST 20% INH SCH ×2 (07:26→19:35)
--- NOTE | 2017-03-26 11:03 | PROGRESS NOTE ---
DATE: 03/26/2017 PRESENT ILLNESS: The patient has pelvic abscesses which are getting smaller as seen on CT scan. A big problem with the patient is that she does not eat and she is malnourished. The family talked to the patient last night, about what she wanted to do and the patient indicated that she did want to continue to be treated and they brought in food for her which she ate, so we are all hopeful that the patient will start eating more. MEDICATIONS: This is the 30th day of treatment with clindamycin and aztreonam. PHYSICAL EXAMINATION: Vital Signs: Temperature is 97.8 degrees, pulse 98, respirations 23, blood pressure 118/57. General: This is an ill-appearing and malnourished elderly female. She is in no acute distress. Lungs: Clear to auscultation. Cardiovascular: Regular heart rate. Abdomen: Soft and nontender. LAB AND X-RAY: Chest x-ray shows bibasilar atelectasis with pulmonary effusions. The only lab from today she has is a creatinine of 0.8 with a GFR of greater than 60. Yesterday, her CBC showed a white count of 8050, hemoglobin 8.7, and platelet count of 287,000. PHYSICAL EXAM: Vital Signs: Temperature 97.8 degrees, pulse 98, respirations 23, blood pressure 118/57. General: This is an ill and malnourished-appearing, elderly female. She is under no acute distress. Lungs: Clear to auscultation. Cardiovascular: Regular heart rate. Abdomen: Soft and nontender. It has not become any more full of ascites than it was yesterday. Neurologic: The patient is lethargic. She took a medication last night that made her this way. ASSESSMENT AND PLAN: The patient has the abdominal abscess. I plan to continue her current antibiotics consisting of clindamycin and aztreonam, as mentioned above. This is day 30 of those antibiotics. Since yesterday after the family and I had talked to her, the patient is beginning to eat more and hopefully this will continue. COMORBIDITIES: Include cirrhosis of the liver, malnutrition, hepatitis A, diverticulitis and malnutrition due to not eating. cc: Ivan Warner MD
[2017-03-26] MEDS: CENTRUM SILVER PO SCH (11:19)
[2017-03-26] MEDS: CULTURELLE PO SCH (11:19)
[2017-03-26] MEDS: ICAR-C PO SCH (11:19)
[2017-03-26] MEDS: LIPOSYN 20% 250 ML IV SCH (11:19)
[2017-03-26] MEDS: LASIX IV SCH (11:20)
[2017-03-26] MEDS: METAMUCIL POWDER PACKET PO SCH (11:21)
[2017-03-26] MEDS: MONISTAT-7 VAG CREAM VAG SCH (11:22)
[2017-03-26] MEDS: TOPROL XL PO SCH (11:25)
--- NOTE | 2017-03-26 12:07 | PROGRESS NOTE ---
DATE: 03/26/2017 SUBJECTIVE: Family is at bedside. The patient reports eating a little bit better today. No fever or chills reported. OBJECTIVE: Vital Signs: Temperature 97.8 degrees, heart rate 98, respiratory rate 22, blood pressure 118/57. O2 saturation 95% on 3 liters nasal cannula. General: This is a chronically ill looking, very malnourished and frail 87-year-old female lying in bed in no acute distress. HEENT: Head is normocephalic and atraumatic. Anicteric sclerae and pale conjunctivae. Mucous membranes very dry. Neck supple. No JVD noted. No carotid bruits. No lymphadenopathy. No thyromegaly. Cardiovascular: S1, S2 heard. No murmurs, gallops, or rubs. Regular rate and rhythm. Respiratory: Coarse breath sounds still present in both pulmonary nguyễn, unchanged in comparing with previous days. Patient is not using any accessory muscles or chronic work of breathing. Abdomen is soft, nontender to palpation. Bowel sounds present. No organomegaly. Extremities: No clubbing, cyanosis, or edema. Peripheral pulses present in both legs. Abdomen is soft, nontender to palpation. Abdomen is distended compatible with ascites. No organomegaly. Extremities: No clubbing, cyanosis, or edema. Peripheral pulses present in both legs. Neurological: Patient is awake, alert, and oriented x2, moves 4 extremities. Cranial nerves 2-12 grossly normal. LABORATORY DATA: Reviewed. ASSESSMENT AND PLAN: 1. Pelvic abscesses secondary to diverticulosis with vaginal fistula. Patient has been on antibiotics for a month. She has received clindamycin and aztreonam. Dr. Warner is following this patient. 2. Acute pulmonary edema with pleural effusion. At this point, patient is stable. She got this condition worse when the ascites also started getting worse. So, after the paracenteses even though we have removed 4 L of oxygen, her oxygen needs have never changed dramatically. 3. 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 As we mentioned before, the patient had a paracentesis almost 5 days ago, and initially she was doing fine, having more appetite but, apparently, she restarted accumulating fluids. At this time, we are going to continue with the same management. Dr. Bae is following this patient. 4. Severe protein calorie malnutrition. Patient has been on total parenteral nutrition for a while. We with GI told the family that this patient is to eat but, unfortunately, she is not able to do that enough to maintain her nutritional needs. I do not think she is going to improve. We have informed the family about it. 5. Acute hypoxemic respiratory failure, multifactorial. She is requiring between 5 and 6 L of oxygen and sometimes she needs Ventimask to maintain oxygen saturation above 90. 6. Disuse myopathy. Because of her many medical comorbidities, she is not a candidate for any physical therapy. 7. Overall, this patient is not doing good. She is not going anywhere. We have informed the family that this patient is not improving, and they request to have her over the weekend here and, if the patient is not improving, they will consider probably hospice on her. After our conversation, also they mentioned the possibility of LTAC. I informed the delinquency prevention social worker about the need to put in a consult for LTAC, and we will see on Wednesday what they have to say. At this point, we are going to continue with the same medical management and patient is DNR LEVEL 1. cc: Brody Mustafa MD
--- NOTE | 2017-03-26 13:13 | Diag Imaging Result Doc PS360 ---
BA SWALLOW W/VIDEO SPEECH THER - 03/26/2017 INDICATION: dysphagia TECHNIQUE: Total fluoroscopy time was 34 seconds. 127 images were obtained. COMPARISON: None FINDINGS: The patient was very delirious and very slow to initiate a swallow. There was no aspiration or penetration. Thin liquid and pureed solid consistencies were taken successfully. IMPRESSION: No aspiration or penetration. Poor global level of consciousness. Electronically signed by Fabian Cruz 03/26/2017 1:11 PM
[2017-03-26] MEDS: TPN ELECTROLYTES 20 ML, MAGNESIUM SULFATE 5 MEQ, M.V.I.-12 10 ML, MTE CONCENTRATE 1 ML,... IV SCH ×7 (16:18)
[2017-03-26] MEDS: PROTONIX IV SCH (16:18)
[2017-03-26] MEDS: LOVENOX SUBQ SCH (16:18)
[2017-03-26] MEDS: SODIUM CHLORIDE 0.9% INJ SCH (16:18)
[2017-03-26] MEDS ORDERED: LASIX IV ONE (16:32)
[2017-03-26] MEDS ORDERED: LASIX 160 MG in NS 25 ML IV ONE (17:30)
[2017-03-27] MEDS: CARAFATE LIQUID PO SCH ×6 (00:27→23:46)
[2017-03-27] MEDS: HUMULIN R SUBQ SCH ×7 (00:29→23:54)
[2017-03-27] MEDS: APRESOLINE PO SCH ×4 (00:30→23:45)
[2017-03-27] MEDS: AZACTAM 2 GM in NS 100 ML IV SCH ×3 (00:54→18:03)
[2017-03-27] MEDS: LASIX IV SCH ×4 (00:54→23:52)
[2017-03-27] MEDS: ICAR-C PO SCH ×3 (00:55→23:45)
[2017-03-27] MEDS: CULTURELLE PO SCH ×3 (00:55→23:45)
[2017-03-27] MEDS: ATROVENT NEB INH SCH ×6 (03:10→23:02)
[2017-03-27] MEDS: XOPENEX NEB INH SCH ×6 (03:10→23:02)
[2017-03-27 06:30] LABS: ALBUMIN 1.8 g/dL (3.5-5.0); CALCIUM 7.9 mg/dL (8.8-10.2); POTASSIUM 3.7 mmol/L (3.5-5.1); TOTAL BILIRUBIN 0.17 mg/dL (0.20-1.00); TOTAL PROTEIN 6.3 g/dL (6.3-8.3)
[2017-03-27 06:39] LABS: MAGNESIUM 2.1 mg/dL (1.5-2.7); PREALBUMIN 13.3 mg/dL (20-40)
[2017-03-27] MEDS: SYNTHROID PO SCH (06:55)
[2017-03-27] MEDS: PERIACTIN PO SCH ×3 (06:55→16:51)
[2017-03-27] MEDS: MUCOMYST 20% INH SCH ×2 (07:46→19:09)
[2017-03-27] MEDS: PULMICORT INH SCH ×2 (07:47→19:09)
--- NOTE | 2017-03-27 08:17 | Diag Imaging Result Doc PS360 ---
CHEST-1 VIEW - 03/27/2017 INDICATION: SOB TECHNIQUE: COMPARISON: 03/26/2017 FINDINGS: Stable left PICC line. Stable cardiomegaly and pulmonary vascular congestion. Stable central pulmonary edema. There is improvement in the left basilar pleural effusion. Stable moderately large right basilar pleural effusion. IMPRESSION: Improvement in the left basilar pleural effusion. Electronically signed by Fabian Cruz 03/27/2017 8:15 AM
[2017-03-27] MEDS: METAMUCIL POWDER PACKET PO SCH (09:02)
[2017-03-27] MEDS: CENTRUM SILVER PO SCH (09:03)
[2017-03-27] MEDS: TOPROL XL PO SCH (09:03)
[2017-03-27] MEDS: MONISTAT-7 VAG CREAM VAG SCH (09:06)
[2017-03-27] MEDS: LIPOSYN 20% 250 ML IV SCH (11:30)
[2017-03-27] MEDS: CILOXAN OPHTH SOLN LEFT EYE SCH ×4 (15:48→23:44)
[2017-03-27] MEDS: LOVENOX SUBQ SCH (15:49)
[2017-03-27] MEDS: TPN ELECTROLYTES 20 ML, MAGNESIUM SULFATE 5 MEQ, M.V.I.-12 10 ML, MTE CONCENTRATE 1 ML,... IV SCH ×7 (15:49)
--- NOTE | 2017-03-27 15:50 | PROGRESS NOTE ---
DATE: 03/19/2017 SUBJECTIVE: The patient is feeling fine. No fever or chills. Mild abdominal distention. OBJECTIVE: Vital Signs: Temperature 99 degrees, heart rate 95, respiratory rate 20, blood pressure 120/40, O2 saturation 95%. General: Chronically ill lady, malnourished, 87, laying in bed in no acute distress. HEENT: No scleral icterus. Pale conjunctivae. Neck supple. Trachea in the midline. Heart: Normal first and second heart sounds. Lungs are clear. Abdomen mildly distended, nontender. Bowel sounds are present. Extremities: Normal. Neurological: Normal. LABORATORY DATA: H and H 7.7 and 24. IMPRESSION AND PLAN: 1. Pelvic abscess secondary to diverting colostomy and vaginal fistula. Continue the antibiotics. Dr. Baugh is not planning to do any surgery. 2. Recurrent pulmonary edema and right pleural effusion. Thoracentesis done. 3. Protein calorie malnutrition; on total parenteral nutrition. 4. Cirrhosis, nonalcoholic steatohepatitis. 5. Acute hypoxic respiratory failure. 6. Iron-deficiency anemia. 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 Has been working with physical therapy. cc: Tamy Vergara MD [facility]TD[facility]
--- NOTE | 2017-03-27 15:51 | PROGRESS NOTE ---
DATE: 03/26/2017 SUBJECTIVE: The patient is eating a little better today. She had a modified barium swallow which was normal with no aspiration. Family is at bedside. OBJECTIVE: Vital Signs: Temperature 97.8 degrees, heart rate 98, respiratory 22, blood pressure 118/57, O2 saturation is better at 95% on 3 L. In general, malnourished, laying in bed but no acute distress. HEENT: Conjunctival pallor present. Neck is supple. Trachea midline. Heart normal first and second heart sounds. Lungs: A few basal rales. Abdomen soft and nontender, nondistended after paracentesis but this may get extended again. Extremities unremarkable. Neurological: Unremarkable. IMPRESSION AND PLAN: 1. Pelvic abscess; has been on IV antibiotics. 2. Acute pulmonary edema and pleural effusion, status post thoracentesis. 3. Cirrhosis. 4. Ascites, status post paracentesis. 5. Protein calorie malnutrition. She is on total parenteral nutrition. 6. Hypoxic respiratory failure, multifactorial; getting better. 7. Disuse myopathy. 8. Poor oral status. I think the family understands, but she is too malnourished and weak, and it is a consensus that she is not a surgical candidate at this time. So, we need to continue the antibiotics and continue the total parenteral nutrition for a while. -9 cc: Tamy Vergara MD
--- NOTE | 2017-03-27 15:51 | PROGRESS NOTE ---
DATE: 03/23/2017 SUBJECTIVE: The patient is getting a little restless, not slept well last night. OBJECTIVE: Vital Signs: Temperature 97 degrees, heart rate 18, respiratory rate 12, blood pressure 130/72, O2 saturation 83 on room air and on nasal cannula 91%. HEENT: Conjunctival pallor present. Neck supple. Trachea midline. Heart: Normal first and second heart sounds. Lungs: Decreased breath sounds. Abdomen distended, but she had paracentesis, so it is less distended now. Extremities unremarkable. No focal neurological deficit. IMPRESSION AND PLAN: 1. Pelvic abscess. Continue IV antibiotics for 6 weeks. She is on and aztreonam. 2. Recurrent pulmonary edema, status post thoracentesis. 3. Cirrhosis. She had a tap done with 4.2 L of ascitic fluid withdrawn. 4. Severe protein calorie malnutrition. 5. Hypoxic respiratory failure. 6. Iron-deficiency anemia. 7. Myopathy on physiotherapy. Continue the current management. She is still quite weak. It will take a longer time probably to recover. -8 cc: Tamy Vergara MD [facility]
--- NOTE | 2017-03-27 16:27 | PROGRESS NOTE ---
DATE: 03/27/2017 SUBJECTIVE: The patient is resting comfortably in bed. She has been eating a little bit better as per the family. The patient does have some what appears to be conjunctivitis of the left eye. OBJECTIVE: Vital signs: Temperature 98.6, blood pressure 131/58, heart rate 91, respirations 20, and O2 saturation 100% on 5 L nasal cannula. General: This is an elderly female lying in bed in no acute distress. Head: Normocephalic, atraumatic. Heart: S1 and S2 are normal. Regular rate and rhythm. Lungs: Clear to auscultation bilaterally. No wheezing, no rales, and no rhonchi. Abdomen: Positive bowel sounds. Soft, nontender, and nondistended. Extremities: No edema. No cyanosis. LABORATORY DATA: Labs were reviewed. ASSESSMENT AND PLAN: 1. Pelvic abscesses secondary to diverticulosis. Continue with IV antibiotic therapy. Further management as per Dr. Warner. 2. Left eye conjunctivitis. We will start the patient on Ciloxan eye drops. 3. Liver cirrhosis secondary to nonalcoholic steatohepatitis. Aware. 4. Severe protein calorie malnutrition. The patient has been improving on her p.o. intake. We will continue to monitor this closely. 5. Ascites. Stable. 6. Bilateral pleural effusions. Stable. 7. Disposition. The patient's family has decided that they would like the patient to be moved to a long-term acute care facility if possible. Deputy Sheriff [id number] Handler is working on this. cc: Brissa Dinero MD
[2017-03-27] MEDS: ALBUMIN 25% IV SCH ×3 (17:13→23:48)
[2017-03-27] MEDS: SODIUM CHLORIDE 0.9% INJ SCH (17:17)
[2017-03-27] MEDS: PROTONIX IV SCH (17:17)
[2017-03-27] MEDS: MORPHINE IV PRN (23:57)
[2017-03-28] MEDS: HUMULIN R SUBQ SCH ×6 (01:05→23:15)
[2017-03-28] MEDS: AZACTAM 2 GM in NS 100 ML IV SCH ×3 (01:30→23:16)
[2017-03-28] MEDS: MORPHINE IV PRN (02:54)
[2017-03-28] MEDS: XOPENEX NEB INH SCH ×6 (03:30→23:22)
[2017-03-28] MEDS: ATROVENT NEB INH SCH ×6 (03:30→23:22)
[2017-03-28] MEDS: CILOXAN OPHTH SOLN LEFT EYE SCH ×6 (06:20→23:45)
[2017-03-28] MEDS: LASIX IV SCH ×3 (06:20→23:16)
[2017-03-28 06:55] LABS: HEMOGLOBIN 7.5 g/dL (12.0-16.0); MCH 26.1 PG (27-31); MCHC 31.3 g/dL (33-37); MCV 83.6 FL (81-99); MPV 10.9 FL (7.4-10.4); RBC 2.87 XMIL (4.2-5.4)
[2017-03-28 07:14] LABS: MAGNESIUM 2.1 mg/dL (1.5-2.7)
[2017-03-28 07:23] LABS: AGAP 8; BUN 37 mg/dL (8-22); CALCIUM 8.4 mg/dL (8.8-10.2); CHLORIDE 101 mmol/L (98-107); COSMO 295; POTASSIUM 3.2 mmol/L (3.5-5.1); SODIUM 143 mmol/L (136-145); TCO2 34 mmol/L (25-35)
[2017-03-28] MEDS ORDERED: POTASSIUM CHLORIDE 60 MEQ in NS 500 ML IV ONE (07:45)
[2017-03-28] MEDS: CARAFATE LIQUID PO SCH ×4 (07:46→23:18)
[2017-03-28] MEDS: SYNTHROID PO SCH (07:46)
[2017-03-28] MEDS: PERIACTIN PO SCH ×3 (07:46→17:22)
[2017-03-28] MEDS: APRESOLINE PO SCH ×3 (07:47→23:18)
[2017-03-28] MEDS: ALBUMIN 25% IV SCH (07:48)
[2017-03-28] MEDS: ICAR-C PO SCH ×3 (07:55→23:18)
[2017-03-28] MEDS: TOPROL XL PO SCH ×2 (07:55→08:59)
[2017-03-28] MEDS: CENTRUM SILVER PO SCH ×2 (07:55→08:56)
[2017-03-28] MEDS: CULTURELLE PO SCH ×3 (07:55→23:18)
[2017-03-28] MEDS: MONISTAT-7 VAG CREAM VAG SCH ×2 (07:56→09:00)
[2017-03-28] MEDS: METAMUCIL POWDER PACKET PO SCH ×2 (07:56→08:57)
[2017-03-28] MEDS: PULMICORT INH SCH ×2 (08:14→19:15)
[2017-03-28] MEDS: MUCOMYST 20% INH SCH ×2 (08:14→19:59)
--- NOTE | 2017-03-28 09:27 | Diag Imaging Result Doc PS360 ---
CHEST-1 VIEW - 03/28/2017 INDICATION: SOB TECHNIQUE: COMPARISON: 03/27/2017 FINDINGS: Stable left PICC line. There is slight increase in the right basilar pleural effusion which is moderate. Stable nonspecific left basilar atelectasis or effusion. Stable cardiomegaly and pulmonary vascular congestion. IMPRESSION: Trace worsening from prior. Electronically signed by Fabian Cruz 03/28/2017 9:24 AM
[2017-03-28] MEDS ORDERED: NS 500 ML ONE (09:39)
[2017-03-28] MEDS: LIPOSYN 20% 250 ML IV SCH (10:03)
[2017-03-28] MEDS: TPN ELECTROLYTES 20 ML, MAGNESIUM SULFATE 5 MEQ, M.V.I.-12 10 ML, MTE CONCENTRATE 1 ML,... IV SCH ×7 (13:09)
[2017-03-28] MEDS: LOVENOX SUBQ SCH (13:54)
[2017-03-28] MEDS ORDERED: LASIX IV ONE (15:00)
--- NOTE | 2017-03-28 15:01 | PROGRESS NOTE ---
DATE: 03/28/2017 SUBJECTIVE: She is more somnolent this morning per the family, but she did rest quietly last night. Was quite agitated the night before. OBJECTIVE: Vital signs: No fevers recorded. Temperature is 99 degrees, pulse 97, blood pressure 140/55, oxygen saturation 98% on 5 L. General: She is sleeping. Did not appear to be any distress. Cardiovascular: Normal rate. Regular rhythm. Pulmonary: No increased work of breathing but she is on quite a bit of supplemental O2. Abdomen: Soft, nontender, nondistended. LABS: I reviewed her labs. White count 8, hematocrit 24. Creatinine is 0.8, glucose 132. ASSESSMENT AND PLAN: This is an 87-year-old female with multiple medical issues including severe malnutrition, anasarca secondary to heart failure, and cirrhosis, who had a diverticular related abscess. Abscess seems to be resolved and her exam is benign with a normal white count and no fevers. However, she is having severe exacerbations of her other medical issues and is quite gravely ill. I had a discussion with her son-in-law at the bedside today. They are working towards maybe a long-term acute care facility placement and I think they are even entertaining some hospice. Dr. Warner is following regarding her antibiotics and they seem to be adequate at this point. Otherwise, anasarca and decompensation of her cirrhosis are her main issues. cc: Deion Bradford MD
--- NOTE | 2017-03-28 16:31 | PROGRESS NOTE ---
DATE: 03/28/2017 SUBJECTIVE: The patient is resting comfortably in bed. No acute events noted overnight. OBJECTIVE: Vital Signs: Temperature 97 degrees, blood pressure 128/53, heart rate 89, respirations 18, O2 saturations 93% on 5 L nasal cannula. General: This is a chronically ill- appearing, elderly female, lying in bed, in no acute distress. Head: Normocephalic, atraumatic. Heart: S1 and S2. Normal. Regular rate and rhythm. Lungs: Equal air entry bilaterally. No crackles. No rales. Abdomen: Positive bowel sounds. Soft, nontender, nondistended. Extremities: No edema. No cyanosis. No calf tenderness. Neurologic: The patient is awake and alert. LABORATORY: White blood cell count 8.5, hemoglobin 7.5, hematocrit 24, platelets 238,000. Sodium 143, potassium 3.2, chloride 101, CO2 34, BUN 37, creatinine 0.8, glucose 128, calcium 8.4, magnesium 2.1, phosphorus 3. ASSESSMENT AND PLAN: 1. Pelvic abscesses secondary to diverticulosis. Continue with the current IV antibiotic regimen as directed by Dr. Ivan Warner. 2. Left eye conjunctivitis. Continue with Ciloxan eyedrops. 3. Liver cirrhosis with ascites. Stable. We will continue to monitor this closely. 4. Severe protein calorie malnutrition. Continue to encourage the patient to eat more. Continue with Ensure. 5. Bilateral pleural effusions. Continue on Lasix. 6. Anemia. Will transfuse 1 unit of prbcs. 7. Hypertension. Continue on the current antihypertensives. 8. DVT prophylaxis. Continue on lovenox. DISPOSITION: special services supervisor is working on trying to get the patient transferred to LTAC. cc: Brissa Dinero MD [facility]
[2017-03-28] MEDS: SODIUM CHLORIDE 0.9% INJ SCH (17:21)
[2017-03-28] MEDS: PROTONIX IV SCH (17:22)
[2017-03-29] MEDS: ATROVENT NEB INH SCH ×3 (03:12→11:03)
[2017-03-29] MEDS: CILOXAN OPHTH SOLN LEFT EYE SCH ×3 (04:02→11:51)
[2017-03-29] MEDS: HUMULIN R SUBQ SCH ×4 (04:20→14:01)
[2017-03-29] MEDS: CARAFATE LIQUID PO SCH ×2 (04:21→09:34)
[2017-03-29] MEDS: AZACTAM 2 GM in NS 100 ML IV SCH ×2 (05:35→07:35)
[2017-03-29] MEDS: APRESOLINE PO SCH ×2 (05:35→14:06)
[2017-03-29] MEDS: PERIACTIN PO SCH ×3 (05:36→11:48)
[2017-03-29] MEDS: SYNTHROID PO SCH ×2 (05:36→07:35)
[2017-03-29 06:33] LABS: AGAP 5; ALBUMIN 2.5 g/dL (3.5-5.0); ALKALINE PHOSPHATASE 146 U/L (32-104); BUN 37 mg/dL (8-22); CALCIUM 8.5 mg/dL (8.8-10.2); CHLORIDE 102 mmol/L (98-107); COSMO 291; GOT 65 U/L (10-30); GPT 27 U/L (10-36); MAGNESIUM 2.1 mg/dL (1.5-2.7); SODIUM 141 mmol/L (136-145); TCO2 34 mmol/L (25-35); TOTAL BILIRUBIN 0.38 mg/dL (0.20-1.00)
[2017-03-29] MEDS: MUCOMYST 20% INH SCH (07:49)
[2017-03-29] MEDS: XOPENEX NEB INH SCH ×3 (07:49→11:03)
[2017-03-29] MEDS: PULMICORT INH SCH (07:49)
--- NOTE | 2017-03-29 08:00 | Diag Imaging Result Doc PS360 ---
EXAM: CHEST-1 VIEW INDICATION: SOB TECHNIQUE: One view COMPARISON: 03/28/2017 FINDINGS: Inspiration is suboptimal. The left PICC line is in stable position. Pulmonary venous congestion is approximately stable. There are bilateral effusions, larger on the right with bibasilar atelectasis and/or infiltrate, more prominent on the right. This may have improved slightly on the right, perhaps technical due to better exposure. Cardiac silhouette is stable. No new consolidations are appreciated. IMPRESSION: Slight improvement on the right. Electronically signed by Ever Deng 03/29/2017 7:58 AM
[2017-03-29 08:09] VITALS: BP 168/69
[2017-03-29 08:34] LABS: HEMATOCRIT 30.2 % (37.0-47.0); HEMOGLOBIN 9.6 g/dL (12.0-16.0); MCH 26.2 PG (27-31); MCHC 31.8 g/dL (33-37); MCV 82.3 FL (81-99); MPV 11.4 FL (7.4-10.4); RBC 3.67 XMIL (4.2-5.4)
[2017-03-29] MEDS: METAMUCIL POWDER PACKET PO SCH (09:33)
[2017-03-29] MEDS: TOPROL XL PO SCH (09:34)
[2017-03-29] MEDS: LASIX IV SCH (09:34)
[2017-03-29] MEDS: CENTRUM SILVER PO SCH (09:34)
[2017-03-29] MEDS: CULTURELLE PO SCH (09:34)
[2017-03-29] MEDS: ICAR-C PO SCH (09:34)
[2017-03-29] MEDS: MONISTAT-7 VAG CREAM VAG SCH (10:53)
[2017-03-29] MEDS: LIPOSYN 20% 250 ML IV SCH (11:47)
--- NOTE | 2017-03-29 11:55 | DISCHARGE SUMMARY ---
ADMISSION DATE: 02/21/2017 DISCHARGE DATE: 03/29/2017 CONSULTATIONS: 1. Dr. Bae with gastroenterology. 2. Dr. Carlos Bradford with general surgery. 3. Dr. Ivan Warner with infectious disease. PERTINENT PROCEDURES: 1. Abdomen and pelvis CT showed cardiomegaly, pulmonary vascular congestion, trace pleural effusions, atrophic liver, splenomegaly suggestive of cirrhosis and scar, trace ascites, small intermediate cystic fluid collection at the left pelvic sidewall, could represent lymphocele or small diverticular abscess. 2. Followup abdomen and pelvis CT showed an interval worsening in pleural effusion with bibasilar atelectasis and infiltrates. 3. Interval worsening in multiple fluid collections within the pelvis which may represent multiple abscesses, marked thickening to the wall of the sigmoid colon and rectum, worsening body wall edema and ascites. 4. Head CT showed extensive chronic appearing changes as described. No definite acute intracranial pathology. 5. Abdominal x-ray showed no acute abnormality. 6. Abdomen and pelvis CT showed approximately stable multiloculated pelvic abscess, worsening ascites, mildly distended loops of bowel with air-fluid levels that are nonspecific but could be due to ileus given the other findings. Otherwise, abdomen and pelvis are essentially stable as compared to previous recent studies. 7. Abdominal ultrasound showed ascites, cirrhotic liver, mild splenomegaly, left pleural effusion. 8. Chest ultrasound showed bilateral effusions. 9. Chest CT showed critically low lung volumes. Complete collapse of the lower lobes and significant collapse of the central lung zones. Major airways are patent. Small to moderate pleural effusions bilaterally, right greater than left. Moderate to large ascites. Cirrhosis. 10. On 03/12/2017, ultrasound-guided paracentesis where they removed 4.3 L of dark sofya fluid from the right side. 11. On 03/17/2017, ultrasound-guided thoracentesis where they removed 15 L of clear straw colored serous fluid from the right side. 12. Abdomen and pelvis CT showed interval improvement in the multi-pelvic fluid collections, abscess with interval worsening in the bilateral lobes, infiltrates and atelectasis with small pleural effusion. Stable ascites. Diverticulosis. Scarring to the kidneys with small cysts. Bowel loops are less distended on current study than on prior exam. 13. On 03/22/2017, ultrasound-guided paracentesis where 4.1 L was removed. 14. Modified barium swallow showed no aspiration or penetration for global level of consciousness. 15. Final chest x-ray on 03/29/2017 showed slight improvement on the right. Showed pulmonary venous congestion that is approximately stable. There are bilateral effusions, larger on the right with basilar atelectasis and/or infiltrate, more prominent on the right. This may have improved slightly on the right, perhaps technical due to better exposure. Cardiac silhouette is stable. No new consolidations appreciated. DISCHARGE DIAGNOSES: 1. Pelvis abscesses secondary to diverticulosis. Continue with intravenous antibiotic regimen as directed by Dr. Ivan Warner. The patient is currently on day 33 of treatment with clindamycin and aztreonam. 2. Left eye conjunctivitis. Continue with Ciloxan eyedrops. 3. Liver cirrhosis with ascites, stable. 4. Severe protein calorie malnutrition continue to encourage the patient to the eat more. Continue with Ensure. She is on a gastrointestinal soft diet. 5. Bilateral pleural effusions. She is status post 3 ultrasound-guided paracenteses on the right. Continue with intravenous Lasix. 6. Anemia. She is status post 1 transfusion on 03/28/2017. Hemoglobin and hematocrit are now stable. 7. Hypertension. Continue antihypertensives. 8. Hypothyroidism. Continue Synthroid. 9. Metabolic encephalopathy. Head CT was negative. [place] that it was secondary to underlying infection that was being treated. Mental status back to baseline. 10. Nithya vaginitis, resolved. 11. Bilateral basilar pneumonia, improved with intravenous antibiotics. Continue aggressive pulmonary toilet. 12. Hypercarbic, hypoxemic respiratory failure requiring 5-6 L of nasal cannula, improved. 13. Recurrent pulmonary edema with right pleural effusions. Again, status post 3 ultrasound- guided paracenteses, stable. 14. 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 She was evaluated by obstetrics/gynecology who did a pelvic examination that showed no evidence of any vaginal malignancies. He could not palpate fistula so if there was one, it was probably very small. Unfortunately, he had nothing else to offer the patient for her possible fistula. 15. Anasarca secondary to liver cirrhosis. HOSPITAL COURSE: Briefly, Ms. Pineda is an 87-year-old, female with a past medical history of hypertension, diverticulitis, hypothyroidism, status post goiter and partial thyroidectomy, iron-deficiency anemia. Presented to the emergency room with worsening diarrhea, nausea, and vomiting. She reported on outpatient basis, she sees Dr. Mckeon within the last 3-4 months because of increasing with her stools as far as frequency and concern. After that, she received 2 rounds of antibiotics per the family for what they believe to be colitis or diverticulitis. She was treated with Levaquin and another antibiotic. They were not for sure of the name. She finished those about 6 weeks prior to this admission. She was also taking MiraLAX nightly, although her primary care told her that she could take this every other day if she has loose stools but she continues to be pretty persistent about taking it nightly. The night prior to her admission, she began having vomited and vomited 4 times since the onset. She denied any blood in her emesis or stools. On arrival to the ED, her white count was found to be 31, as well as an abnormal CT of her abdomen and pelvis that showed possible a diverticular abscess. She continued with loose stools in the ED so she was admitted and started on Levaquin and Flagyl with a GI consult. C. difficile studies were negative. Occult blood stools were negative. GI as well as general surgery were brought on board. General surgery felt that broad-spectrum antibiotics were appropriate and no surgical indication was needed at that time. Patient's white count still remains elevated. Dr. Warner was asked to see the patient. He changed her antibiotics to clindamycin and aztreonam. Patient did have ascites with her cirrhosis as well as bilateral pleural effusions and diffuse anasarca. Dr. Bradford discussed with the family from a surgical standpoint if they were to progress with surgery, she would need an exploratory laparotomy in an open fashion with a colectomy and end-colostomy, and other potentials would be percutaneous drainage and he did not see a large enough collection there for a percutaneous draining. The family agrees with just maximum therapy with antibiotics without any type of operations and he will keep re-evaluating to see if the abscess can be percutaneously drained. She was initiated on IV Lasix to help with her fluid volume overload plus albumin infusions. She was followed by GI. She continued with worsening right-sided pleural effusions for which she underwent 3 ultrasound- guided paracenteses, one on 03/12/2017, one on 03/17/2017, and again on 03/22/2017, as well as continues on IV Lasix. Her last chest x-ray done on 03/29/2017 showed slight improvement on the right. She continued to require anywhere between 5 and 6 L nasal cannula. She continues to be on IV antibiotics of clindamycin and aztreonam. This is day #33. Her white count is stable at 8. Her hemoglobin and hematocrit are stable at 9 and 30. On 03/28/2017, her hemoglobin and hematocrit fell to 7 and 24. She was transfused with 1 unit of P-RBCs. She also developed a left eye conjunctivitis that she will continue on Ciloxan eyedrops. She does have severe protein calorie malnutrition. Continue to encourage the patient to eat more. She will continue on Ensure, a GI soft diet, as well as TPN infusion. automotive services manager has been working to get the patient transferred to LTAC. She does have a bed at [place] [facility] today. VITAL SIGNS: Temperature is 98.5 degrees, heart rate 96, respirations 22, blood pressure 166/69, O2 is 95% on 5 L nasal cannula. DISCHARGE DIET: Mechanical soft with Ensure each meal. She still receiving fat emulsion along with TPN IV. DISCHARGE MEDICATIONS: Will be as per Dr. Padilla. FOLLOWUP: Ms Pineda is being transferred to an LTAC in [place]. DISCHARGE TIME: Greater than 45 minutes. Dictated by RD Bentley for Brody Mustafa MD cc: MD Zhou Hung MD
[2017-03-29] MEDS: TPN ELECTROLYTES 20 ML, MAGNESIUM SULFATE 5 MEQ, M.V.I.-12 10 ML, MTE CONCENTRATE 1 ML,... IV SCH ×7 (12:39)
--- NOTE | 2017-03-29 14:47 | PROGRESS NOTE ---
DATE: 03/29/2017 SUBJECTIVE: The patient is resting in bed. Her son was present at bedside. The patient has been continuing to have poor oral intake. Her abdominal distention has been slightly worse. There are no fevers reported. She denies any vomiting. She has been moving her bowels. OBJECTIVE: Vital signs: Temperature 98.5 degrees, pulse of 96, respiratory 22 , blood pressure 160/69, saturating 93% on 5 L nasal cannula. General Appearance: Thinly-built , lying in bed, in no acute distress. HEENT: No pallor. No icterus. Neck: Supple. Abdomen: Distended. Positive ascites. No guarding and no rebound. Extremities: No cyanosis or clubbing. She has elastic stockings. Neurologic: She was awake and answered simple questions. LABORATORIES: Hemoglobin and hematocrit are 9.6, 13.2, white count of 8.2, platelet count of 273,000. Sodium 141, potassium 4, chloride 102, bicarb 39.5, BUN of 37, creatinine 0.8, glucose 112, calcium is 8.5, phosphorus 2.9, magnesium 2.1. Total bilirubin is 0.38, AST 65, ALT 27, alkaline phosphatase is 146, total protein 7, albumin 2 5. IMPRESSION AND PLAN: 1. 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 She will continue a low-sodium diet. We will have to restrict her fluid intake to less than 1.5 L in 24 hours. She is continuing on Lasix 60 mg Twice daily. Will add Aldactone today 100 mg once daily. 2. If her abdominal distention continues to worsen, she may need repeat paracentesis, either inpatient versus outpatient. 3. Decreased oral intake. I will encourage her to take Ensure 3 to 4 times daily. Will ask to wean down her TPN, once she is able to tolerate orally. 4. Pelvic abscesses, secondary to diverticulitis, and complicated with rectovaginal fistula. She is on antibiotics per Dr. Warner. 5. Pleural effusion, ascites and fluid overload status, likely secondary to poor mobility, cirrhosis and recent intraabdominal infection. Encouraged her to perform incentive spirometry every 1 to 2 hours as tolerated. 6. We put her on Iron-C b.i.d. and multivitamin once daily. 7. For gastrointestinal prophylaxis, proton pump inhibitors. The above plan of care discussed with the patient and family at bedside. cc: MD Deion Rivers MD Dr. Najjar Leroy F. Harris, MD Manish Arora, MD Katherine Takundwa, MD MTDD
[2017-03-30] MEDS ORDERED: ALDACTONE PO SCH (09:00)
--- NOTE | 2017-04-01 13:16 | PROVIDER DOCUMENTATION ---
This chart was entered by Kira Garrett Scribe, acting as scribe for Kasey Yang MD. HPI-Abdominal Pain/GI Problem <Krunal Burroughs - Last Filed: 02/21/17 13:40> - General Source: patient, family - History of Present Illness-ABD Nature of Presenting Problems: 86 year old female that presents to the ER with complaint of N/V/D since x 1day. Pt has had decreased appetite for 2 months. Pt was had been receiving blood due to low blood count by Dr. Mckeon. Discontinued due to nausea. Started vomiting last night around midnight x 2 with diarrhea that continues. Pt is complaining of RLQ abdominal pain. Abdominal Pain Onset Location: reports: RUQ Onset/Duration: reports: 24 hours ago Timing: reports: still present Associated Symptoms: reports: diarrhea, loss of appetite, nausea, vomiting # of Diarrhea Episodes: 6 # of Vomiting Episodes: 4 <Kasey Yang - Last Filed: 04/01/17 13:16> - General Chief Complaint: N/V/D Stated Complaint: UPPER ABD PAIN,VOMITING,FALL Time Seen by Provider: 02/21/17 09:17 Allergies/Adverse Reactions: Patient Allergies Allergy/AdvReac Type Severity Reaction Status Date / Time aspirin Allergy Severe ITCHING, Verified 02/21/17 08:42 rash Penicillins Allergy Severe RASH, Verified 02/24/17 14:09 itching hydrocodone [From [place]] AdvReac Intermediate Unknown Verified 02/24/17 14:09 Home Medications: Home Medication List Medication Instructions Recorded Confirmed Last Taken Type Escitalopram [Lexapro] 20 mg PO DAILY 05/22/13 02/21/17 02/20/17 09:00 History Omeprazole [Prilosec] 20 mg PO DAILY@0700 05/22/13 02/21/17 02/20/17 09:00 History Promethazine [Phenergan] 25 mg PO Q6H PRN PRN 09/26/15 02/21/17 02/21/17 01:00 History Ferrous Sulfate [Iron] 325 mg PO TID 02/21/17 02/21/17 02/15/17 History Furosemide 40 mg PO DAILY 02/21/17 02/21/17 02/19/17 History Levothyroxine Sodium 88 mg PO DAILY 02/21/17 02/21/17 02/20/17 09:00 History Nabumetone 500 mg PO DAILY 02/21/17 02/21/17 02/20/17 09:00 History Aztreonam [Azactam] 2 gm IV Q8H #30 vial 03/29/17 Unknown Rx Ciprofloxacin 0.3% Ophth Soln 1 applicatn LEFT EYE Q4H #0 bottle 03/29/17 Unknown Rx [Ciloxan Ophth Soln] Furosemide [Lasix] 60 mg IV Q12H vial 03/29/17 Unknown Rx Hydralazine [Apresoline] 25 mg PO Q8HR tablet 03/29/17 Unknown Rx Ipratropium [place] Neb [Atrovent 0.5 mg INH RTQ4H neb 03/29/17 Unknown Rx Neb] Iron Carbonyl/Ascorbic Acid 1 each PO BID tablet 03/29/17 Unknown Rx [Icar-C] Lactobacillus Rhamnosus GG 1 each PO BID capsule 03/29/17 Unknown Rx [Culturelle] Levalbuterol Neb [Xopenex Neb] 1.25 mg INH RTQ4H neb 03/29/17 Unknown Rx Levothyroxine [Synthroid] 88 microgm PO DAILY@0700 tablet 03/29/17 Unknown Rx Metoprolol Succinate E.r. [Toprol 25 mg PO DAILY tablet 03/29/17 Unknown Rx Xl] Morphine 2 - 4 mg IV Q3H PRN PRN #0 syringe 03/29/17 Unknown Rx Multivitamins/Minerals [Centrum 1 each PO DAILY tablet 03/29/17 Unknown Rx Silver] Ondansetron [Zofran] 4 mg IV Q4H PRN PRN #0 vial 03/29/17 Unknown Rx Pantoprazole [Protonix] 40 mg IV Q24H vial 03/29/17 Unknown Rx Spironolactone [Aldactone] 100 mg PO DAILY #60 tablet 03/29/17 Unknown Rx Review of Systems - Adult - REVIEW OF SYSTEMS - ADULT Constitutional: denies: chills, fever Eyes: reports: no symptoms reported Ears, Nose, Mouth & Throat: reports: no symptoms reported Cardiovascular: reports: no symptoms reported Respiratory: reports: no symptoms reported Gastrointestinal: reports: abdominal pain, diarrhea, nausea, poor appetite, vomiting Genitourinary: reports: no symptoms reported Musculoskeletal: reports: no symptoms reported Integumentary: reports: no symptoms reported Neurological: reports: no symptoms reported Psychiatric: reports: no symptoms reported Endocrine: reports: no symptoms reported Hematologic/Lymphatic: reports: no symptoms reported Allergic/Immunologic: reports: no symptoms reported All Other Systems: Reviewed and Negative <Kasey Yang - Last Filed: 04/01/17 13:16> Past History - Adult - PAST MEDICAL HISTORY-ADULT Review of Records: reports: Nursing Assessment Review, Medications Reviewed Cardiovascular: reports: HTN Endocrine/Immune: reports: thyroid disorder Other Conditions: reports: other cancer (skin) - PRIOR SURGERIES/PROCEDURES Surgical/Procedure History: reports: hysterectomy, other (cataract removal) - IMMUNIZATION STATUS Childhood Immunizations: See Nurse Assessment Flu Vaccine: See Nurse Assessment - FAMILY HISTORY Family History: reviewed, not pertinent <Kasey Yang - Last Filed: 04/01/17 13:16> Physical Exam-General - CONSTITUTIONAL General Appearance: alert, no apparent distress - EYES Eyes: pale conjunctivae - HEAD, EARS, NOSE, MOUTH & THROAT HENMT: normocephalic/atraumatic, moist mucous membranes - NECK Neck: supple, normal inspection - RESPIRATORY Respiratory: lungs clear, normal breath sounds - CARDIOVASCULAR Cardiovascular: systolic murmur - GASTROINTESTINAL (ABDOMEN) Abdominal Exam: soft, distended - MUSCULOSKELETAL Extremity: normal range of motion, pedal edema - SKIN Integumentary: normal color, warm/dry - NEUROLOGIC Neurologic: grossly normal, no motor/sensory deficits - PSYCHIATRIC Psych/Mental Status: normal mood/affect, normal thought content, normal thought process, oriented x 3 <Kasey Yang - Last Filed: 04/01/17 13:16> Progress - PLAN OF CARE/RESULTS Progress/Plan/Lab Results: Vital Signs - 8 hr 02/21/17 08:09 Temperature 99.6 F Pulse Rate 73 Respiratory Rate 20 Blood Pressure 130/46 O2 Sat by Pulse Oximetry 96 Laboratory Results - last 24 hr 02/21/17 02/21/17 09:20 09:20 WBC 31.79 H RBC 4.29 Hgb 10.7 L Hct 33.2 L MCV 77.4 L MCH 24.9 L MCHC 32.2 L RDW Std Deviation 17.8 H Plt Count 384 MPV 9.2 Neut % (Auto) 94.5 H Lymph % (Auto) 2.6 L [place] % (Auto) 2.9 Eos % (Auto) 0.0 Baso % (Auto) 0.0 Neut # (Auto) 30.00 H Lymph # (Auto) 0.84 L [place] # (Auto) 0.93 H Eos # (Auto) 0.01 Baso # (Auto) 0.01 Segmented Neutrophils 79 H Band Neutrophils 17 H Lymphocytes 3 L Monocytes 1 Hypochromia 1+ Sodium 138 Potassium 2.7 L Chloride 97 L Carbon Dioxide 29 Anion Gap 12 BUN 13 Creatinine 1.2 H Estimated GFR/1.73 m2 43 BUN/Creatinine Ratio 11 Glucose 135 H Calculated Osmolality 278 Calcium 8.8 Total Bilirubin 0.69 AST 59 H ALT 21 Alkaline Phosphatase 111 H Total Protein 6.9 Albumin 2.4 L Globulin 4.5 Albumin/Globulin Ratio 0.5 Orders Category Date Time Status CT ABD/PELVIS W/ IV CONT ONLY [CT] Stat Exams 02/21/17 09:39 Taken CBC WITH ELECTRONIC DIFF [HEME] Stat Lab 02/21/17 09:20 Completed CMP [COMPREHENSIVE METABOLIC PANEL] [CHEM] Stat Lab 02/21/17 09:20 Completed STOOL CULTURE [RM] Stat Lab 02/21/17 09:39 Uncollected Stool [C DIFF TOXIN] [STOOL] Stat Lab 02/21/17 09:39 Uncollected URINALYSIS W/POSS RFLX CULT-1 [URINALYSIS] Stat Lab 02/21/17 09:36 Uncollected 0.9% Sodium Chloride Inj [Ns] 500 ml Med 02/21/17 09:37 Discontinued IV 999 mls/hr Metoclopramide [Reglan] Med 02/21/17 09:38 Discontinued 5 mg IV NOW ONE Pantoprazole [Protonix] Med 02/21/17 09:37 Discontinued 40 mg IV NOW ONE Potassium Chloride E.r. [Klor-Con] Med 02/21/17 11:01 Discontinued 40 meq PO NOW ONE Promethazine [Phenergan] Med 02/21/17 09:38 Discontinued 12.5 mg IV NOW ONE Sodium Chloride 0.9% Med 02/21/17 09:37 Discontinued 10 ml INJ NOW ONE Sodium Chloride 0.9% Med 02/21/17 09:38 Discontinued 10 ml INJ NOW ONE Result Diagrams: 02/21/17 09:20 02/21/17 09:20 - CT/MRI 1 CT Study: Abdomen, Pelvis Impression: Abnormal (cirrhosis with ascites, 3.8cm abscess/cyst in pelvis, diverticulosis/diverticulitis) - CONSULTS/PCP/HOSPITALIST Notification #1 *Consult/PCP/Hospitalist*: Hospitalist Time Discussed: 11:27 Consult Disposition: Will see in ED, Admit <Krunal Burroughs - Last Filed: 02/21/17 13:40> - PLAN OF CARE/RESULTS Progress/Plan/Lab Results: Vital Signs - 8 hr 02/21/17 08:09 Temperature 99.6 F Pulse Rate 73 Respiratory Rate 20 Blood Pressure 130/46 O2 Sat by Pulse Oximetry 96 Result Diagrams: 03/29/17 05:50 03/29/17 05:28 <Kasey Yang - Last Filed: 04/01/17 13:16> Departure - Departure Date of Disposition Decision: 02/21/17 Time of Disposition Decision: 11:30 Certified Medical Emergency: Emergent - Critical Care Note This patient required my direct & personal management of CC.: No <Krunal Burroughs - Last Filed: 02/21/17 13:40> - Departure Date of Disposition Decision: 02/21/17 Time of Disposition Decision: 11:35 Certified Medical Emergency: Emergent - Critical Care Note This patient required my direct & personal management of CC.: No <Kasey Yang - Last Filed: 04/01/17 13:16> - Departure DIAGNOSIS: Diverticulitis large intestine, Cirrhosis of liver with ascites, Leukocytosis, unspecified Disposition: ADMITTED INPATIENT 09 Condition: Serious Attestation - Physician/ DELANO Attestation Patient care was provided by Advanced Practice Provider:: Yes Advanced Practice Provider documentation review:: The Mid-level provider documentation, treatment plan and medical decision making was reviewed by the physician who agrees with all treatment and medical decision making by the P. The physician spent face to face time with patient:: Yes Advanced Practice Provider documentation review:: Supervising physician onsite and consulted in the evaluation and care of this patient. The physician did have a face to face encounter with the patient. <Kasey Yang - Last Filed: 04/01/17 13:16> This chart was documented by the indicated scribe, (Kira Garrett, [place]) and accurately reflects the services I performed and decisions made by me, Kasey Yang MD, as attested by the provider's signature.
[2017-04-28] MEDS ORDERED: D50W SYRINGE ONE (01:21)
== END 2017-03-29 15:01 ==
LOC: ED 08:04 → 3N 13:22 → SUATTDRO 13:22 → 3S 02-28 12:10 → 4N 03-01 18:53 → ICU 03-11 09:44 → 4N 03-18 14:13
PROVIDERS: ATTEND Internal Medicine